=== PATIENT | female | born 1935 | race Caucasian/White ===

== ENCOUNTER 2016-12-31 00:52 | Observation (INO) | payer BC ==
[~2016-12-31] VITALS: Ht 165.1 cm; Wt 68.5 kg
[~2016-12-31 00:52] MED LIST: CLTP PO; DILT120T8 PO; METO25TA3 PO; mega red PO
[2016-12-31] MEDS ORDERED: KRIL1CAP18 PO (01:17)
[2016-12-31] MEDS ORDERED: CALCTAB7 PO (01:17)
[2016-12-31] MEDS ORDERED: LATA0.5S OPB (01:17)
[2016-12-31] MEDS ORDERED: MELA1TAB5 PO (01:17)
[2016-12-31] MEDS ORDERED: CHOL1000 PO (01:17)
[2016-12-31 01:39] LABS: BASO % 0.5 %; BASO ABS # 0.05 K/uL (0-0.2); COMPLETE YES; EOS % 3.9 %; HEMATOCRIT 46.2 % (37-47); IG% 0.3 %; LYMPH % 34.7 %; LYMPH ABS # 3.31 K/uL (1.2-3.4); MEAN CORPUSCULAR HEMOGLOBIN 30.1 pg (25-34); MEAN CORPUSCULAR HGB CONC 32.7 g/dl (32-36); MONO % 10.2 %; NEUT % 50.4 %; PLATELET COUNT 302 K/uL (130-400); RED BLOOD COUNT 5.02 M/uL (4.2-5.4); WHITE BLOOD COUNT 9.54 K/uL (4.8-10.8)
[2016-12-31 01:47] LABS: MANUAL MICROSCOPIC REQUIRED? NO; REVIEW REQ? NO; URINE APPEARANCE CLEAR (CLEAR); URINE BILIRUBIN NEG (NEG); URINE COLOR YELLOW; URINE NITRITE NEG (NEG); URINE SPECIFIC GRAVITY 1.014 (1.000-1.030); UROBILINOGEN NEG (NEG)
--- NOTE | 2016-12-31 01:49 | EMERGENCY ROOM VISIT NOTE ---
History Report prepared by [place]: Daria Villavicencio Under the Supervision of: Dr. Rani Tanner D.O. First contact with patient: 01:13 Chief Complaint: ABDOMINAL PAIN Stated Complaint: PAIN IN RT UPPER ABD AREA History of Present Illness The patient is an 81 year old female who presents to the Emergency Room with complaints of intermittent upper abdominal pain that began around 2200 this evening. The patient states that she has never experienced this in the past. She notes a history of an appendectomy and cholecystectomy. The patient states that initially her pain would come every 15 minutes, then every 30 minutes, and then every 45 minutes. She states that she thought that the pain was starting to subside, but then started coming every five minutes. The patient states that each episode lasts approximately 1-2 minutes. She denies any shortness of breath, nausea, or vomiting. The patient denies eating anything out of the ordinary this evening. Source of History: patient Onset: 2200 this evening Position: abdomen (upper) Timing: intermittent Associated Symptoms: No SOB, No nausea, No vomiting Review of Systems See HPI for pertinent positives & negatives. A total of 10 systems reviewed and were otherwise negative. Past Medical & Surgical Medical Problems: (1) Hypercholesterolemia (2) Hypertension (3) Palpitations Surgical Problems: (1) Hx of cholecystectomy (2) Tonsillectomy planned Family History Noncontributory secondary to age Social History Smoking Status: Never Smoker Alcohol Use: none Drug Use: none Marital Status: Housing Status: lives with family Occupation Status: retired Current/Historical Medications Scheduled Calcium Carbonate-Vitamin D W/ (Caltrate 600 Plus), 1 TAB PO BID Cholecalciferol (Vitamin D3), 1 TAB PO DAILY Diltiazem Hcl (Cardizem), 120 MG PO BID Krill Oil (Megared [place]-3 Krill Oil 500 mg), 1 CAP PO DAILY Latanoprost (Xalatan 0.005% Oph Anabela), 1 DROPS OPB HS Melatonin (Kp Melatonin), 3 MG PO HS Metoprolol Succ (Toprol Xl) (Toprol-Xl), 25 MG PO QPM Allergies Coded Allergies: Aspirin (Verified Allergy, Severe, HEART RACES, INCREASES B/P, 12/31/16) Meperidine (Verified Allergy, Severe, HEART RACES, INCREASES B/P, 12/31/16) Oxycodone (Verified Allergy, Severe, HEART RACES, INCREASES B/P, 12/31/16) Tramadol (Verified Allergy, Severe, HEART RACES, INCREASES B/P, 12/31/16) Cephalosporins (Verified Allergy, Unknown, SWELLING, 12/31/16) Codeine (Verified Allergy, Unknown, ITCHY, 12/31/16) Hydrocodone (Verified Allergy, Unknown, ITCHY, 12/31/16) Ibuprofen (Verified Allergy, Unknown, ITCHY, 12/31/16) Penicillins (Verified Allergy, Unknown, SWELLING, 12/31/16) Physical Exam Vital Signs Date Time Temp Pulse Resp B/P Pulse Ox O2 Delivery O2 Flow Rate FiO2 12/31/16 05:00 140/70 12/31/16 04:57 55 18 147/77 96 Room Air 12/31/16 04:48 147/77 12/31/16 04:40 56 13 97 12/31/16 04:35 54 13 99 12/31/16 04:30 53 16 130/89 95 12/31/16 04:10 52 18 97 12/31/16 04:00 53 16 136/66 91 12/31/16 03:30 55 18 138/69 92 12/31/16 03:27 58 18 141/71 95 Room Air 12/31/16 03:25 57 17 95 12/31/16 03:22 141/71 12/31/16 02:55 56 14 96 12/31/16 02:50 57 18 94 12/31/16 02:45 56 17 95 12/31/16 02:40 54 16 94 12/31/16 02:35 59 16 94 12/31/16 02:30 57 16 149/76 12/31/16 02:25 60 19 94 12/31/16 02:20 57 21 94 12/31/16 02:10 57 16 94 12/31/16 02:06 132/74 12/31/16 01:50 36.7 59 19 147/69 99 Room Air 12/31/16 01:40 147/69 12/31/16 01:40 59 12/31/16 01:18 159/72 Physical Exam HEENT: Head - normocephalic and atraumatic Pupils are equal, round, and reactive to light. Extraocular eye muscles are intact, and sclera are anicteric. Nose - moist nasal mucosa without discharge. Mouth - moist buccal mucosa. Oropharynx is nonerythematous and there is no tonsillar exudate or edema noted. Neck: Supple; no JVD, nuchal rigidity, cervical lymphadenopathy. Heart: Regular rate and rhythm. There is a normal S1 and S2 with no murmurs, clicks, or gallops appreciated. Lungs: Clear to auscultation bilaterally with no wheezes, rales, or rhonchi. Abdomen: Mild discomfort to palpation in the right upper quadrant. Soft, nondistended, with good bowel sounds. There are no palpable pulsatile masses or hepatosplenomegaly. There is no guarding, rigidity, or rebound noted. Extremities: No evidence of cyanosis, clubbing, or edema. There are easily palpable peripheral pulses. Skin: warm and dry with good turgor and no rashes. Medical Decision & Procedures ER Provider Diagnostic Interpretation: 1 view chest x-ray as per my interpretation: no obvious free air, moderate colonic fecal retention, no obvious signs of bowel obstruction. CT results as stated below per my review and radiologist interpretation: CT Abdomen and Pelvis: The visualized lower thorax is unremarkable. The gallbladder is surgically absent. Mild intra-and extrahepatic bile duct dilation likely segment prior to cholecystectomy. The liver, pancreas, and adrenal glands are unremarkable. Punctate calcifications within the spleen suggesting remote granulomatous infection. The kidneys, ureters and urinary bladder are unremarkable. The uterus and adnexa are unremarkable. The appendix is not identified. Noninflamed colonic diverticulosis. No free fluid. No free air. No acute osseous abnormality. Radiologist: Rafa Lewis MD Study ready at 0331 and initial results transmitted at 1943 Laboratory Results Test 12/31/16 01:10 12/31/16 01:15 12/31/16 04:24 Total Bilirubin 0.8 mg/dl (0.2-1) Direct Bilirubin mg/dl (0-0.2) Aspartate Amino Transf (AST/SGOT) 20 U/L (15-37) Alanine Aminotransferase (ALT/SGPT) 26 U/L (12-78) Alkaline Phosphatase 74 U/L (45-117) Total Protein 7.3 gm/dl (6.4-8.2) Albumin 4.0 gm/dl (3.4-5.0) Lipase 245 U/L (73-393) Chemistry Specimen Hemolysis Urine Color YELLOW Urine Appearance CLEAR (CLEAR) Urine pH 6.0 (4.5-7.5) Urine Specific [place] 1.014 (1.000-1.030) Urine Protein NEG (NEG) Urine Glucose (UA) NEG (NEG) Urine Ketones NEG (NEG) Urine Occult Blood NEG (NEG) Urine Nitrite NEG (NEG) Urine Bilirubin NEG (NEG) Urine Urobilinogen NEG (NEG) Urine Leukocyte Esterase SMALL (NEG) Urine WBC (Auto) 5-10 /hpf (0-5) Urine RBC (Auto) 0-4 /hpf (0-4) Urine Hyaline Casts (Auto) 1-5 /lpf (0-5) Urine Epithelial Cells (Auto) 10-20 /lpf (0-5) Urine Bacteria (Auto) NEG (NEG) Bedside Lactic Acid Venous 1.80 mmol/L (0.90-1.70) Laboratory results per my review. Medications Administered Medications (Trade) Dose Ordered Sig/Shad Route Start Time Stop Time Status Last Admin Dose Admin Fentanyl Citrate (Fentanyl Inj) 50 mcg NOW STAT IV 12/31/16 02:54 12/31/16 02:55 DC 12/31/16 03:02 50 MCG Fentanyl Citrate 50 mcg 50 mcg NOW STAT IV 12/31/16 04:13 12/31/16 04:14 DC 12/31/16 04:35 50 MCG Sodium Chloride (Nss 1000ml) 1,000 ml @ 250 mls/hr Q4H STAT IV 12/31/16 04:13 12/31/16 06:26 DC 12/31/16 04:35 250 MLS/HR Procedure The patient was treated with Fentanyl Inj 50 mcg IV, Sodium Chloride 1000 ml @ 250 mls/hr IV, Fentanyl Inj 50 mcg IV. ECG Indication: abdominal pain Rate (beats per minute): 59 Rhythm: sinus bradycardia Findings: 1st degree AV block, no acute ischemic change, no ectopy Comparison ECG Date: 04/30/12 Change: no significant change ED Course 0121: Past medical records reviewed. The patient was evaluated in room A12B. A complete history and physical exam was performed. An IV lock was initiated and labs are drones above. Patient had an obstruction series done as described above. 0252: I reevaluated the patient and she notes that the episodes are coming more frequently. I discussed the exam findings with her thus far. She agreed to have a CT scan. 0254: Ordered Fentanyl Inj 50 mcg IV. 0405: I reevaluated the patient and she is still having terrible pain. I discussed the CT findings with her and I discussed the treatment plan. She verbalized complete understanding and agreement. She will be evaluated for further treatment. 0413: Ordered Fentanyl Inj 50 mcg IV. 0433: I discussed the patient's case with JENNIFER Yip. He is going to evaluate the patient for further treatment. Medical Decision The patient is an 81 year old female who presents to the ED with abdominal pain. Differential diagnosis includes small bowel obstruction, retained common bile duct stone, pancreatitis, colitis, ulcerative disease, ischemic bowel, ulcerative disease. Lab interpretation: no leukocytosis, stable H&H, BUN 22, creatinine 1.2, glucose 110, normal LFTs and lipase, urinalysis small leukocyte esterase and 5- 10 white cells, lactic acid 1.8. This is an 81-year-old female patient who presents to the emergency department with sudden onset of right upper quadrant abdominal pain that will not subside. Plain films and CT scan were essentially unremarkable. Laboratory studies were unremarkable. The patient's symptoms persist despite multiple pain medications. I discussed the case with the [facility] hospitalist and they will evaluate for further management. We discussed the possibility of ulcerative disease and the need for endoscopy. GI will be consulted. Consults Time Called: [phone] Consulting Physician: JENNIFER Yip Returned Call: [phone] I discussed the patient's case with JENNIFER Yip. He is going to evaluate the patient for further treatment. Impression Primary Impression: Intractable abdominal pain Scribe Attestation The scribe's documentation has been prepared under my direction and personally reviewed by me in its entirety. I confirm that the note above accurately reflects all work, treatment, procedures, and medical decision making performed by me. Departure Information Dispostion Being Evaluated By Hospitalist Kostas Manzo M.D. (PCP)
[2016-12-31 02:44] LABS: ALKALINE PHOSPHATASE 74 U/L (45-117); ALT/SGPT 26 U/L (12-78); AST/SGOT 20 U/L (15-37); BLOOD UREA NITROGEN 22 mg/dl (7-18); BUN/CREATININE RATIO 18.1 (10-20); CALCIUM 9.5 mg/dl (8.5-10.1); CARBON DIOXIDE 27 mmol/L (21-32); CHLORIDE 107 mmol/L (98-107); GLUCOSE 110 mg/dl (70-99); POTASSIUM 4.1 mmol/L (3.5-5.1); SODIUM 143 mmol/L (136-145)
[2016-12-31] MEDS ORDERED: FENTANYL CITRATE INJ 50 MCG/1 ML 2 ML VIAL IV STA ×2 (02:54→04:13)
[2016-12-31] MEDS ORDERED: OPTIRAY 320 IV PRN (03:00)
[2016-12-31] MEDS ORDERED: SODIUM CHLORIDE 0.9% 1000ML 1,000 ML IV STA (04:13)
--- NOTE | 2016-12-31 05:12 | History and Physical ---
History & Physical Date & Time of Service: December 31, 2016 at 05:13 Chief Complaint: Pain In Rt Upper Abd Area Primary Care Physician: Kostas Sawyer M.D. History of Present Illness Source: patient, family The patient is an 81-year-old female who presents emergency department with complaint of intermittent right upper quadrant and epigastric area pain that began around 2200 hrs. this evening prior to arrival. She's never had this kind of pain before. The pain was initially present in decreasing intervals from every 15 to 30 to 45 minutes, then started to appear at shorter intervals which may be a short as 5 minutes. She is status post appendectomy and cholecystectomy. She has not had any nausea or vomiting, but she does have chronic diarrhea since her cholecystectomy. She has not had any different food or liquid intake over the past several days. Past Medical/Surgical History Medical Problems: (1) Hypercholesterolemia Status: Chronic (2) Hypertension Status: Chronic (3) Palpitations Status: Resolved Surgical Problems: (1) Hx of cholecystectomy Status: Resolved (2) Tonsillectomy planned Status: Resolved Family History Noncontributory secondary to age Social History Smoking Status: Never Smoker Smokeless Tobacco Use: No Alcohol Use: none Drug Use: none Marital Status: Housing status: lives with family Occupational Status: retired Immunizations History of Influenza Vaccine: N/A History of Tetanus Vaccine?: Unknown History of Pneumococcal: No History of Hepatitis B Vaccine: No Multi-Drug Resistant Organisms History of MDRO: No Allergies Coded Allergies: Aspirin (Verified Allergy, Severe, HEART RACES, INCREASES B/P, 12/31/16) Meperidine (Verified Allergy, Severe, HEART RACES, INCREASES B/P, 12/31/16) Oxycodone (Verified Allergy, Severe, HEART RACES, INCREASES B/P, 12/31/16) Tramadol (Verified Allergy, Severe, HEART RACES, INCREASES B/P, 12/31/16) Cephalosporins (Verified Allergy, Unknown, SWELLING, 12/31/16) Codeine (Verified Allergy, Unknown, ITCHY, 12/31/16) Hydrocodone (Verified Allergy, Unknown, ITCHY, 12/31/16) Ibuprofen (Verified Allergy, Unknown, ITCHY, 12/31/16) Penicillins (Verified Allergy, Unknown, SWELLING, 12/31/16) Home Medications Scheduled Calcium Carbonate-Vitamin D W/ (Caltrate 600 Plus), 1 TAB PO BID Cholecalciferol (Vitamin D3), 1 TAB PO DAILY Diltiazem Hcl (Cardizem), 120 MG PO BID Krill Oil (Megared [place]-3 Krill Oil 500 mg), 1 CAP PO DAILY Latanoprost (Xalatan 0.005% Oph Anabela), 1 DROPS OPB HS Melatonin (Kp Melatonin), 3 MG PO HS Metoprolol Succ (Toprol Xl) (Toprol-Xl), 25 MG PO QPM Review of Systems Constitutional: No chills, No fatigue, No fever, No problem reported, No sweats , No weakness, No weight loss Eyes: No diplopia, No discharge, No eye pain, No problem reported, No redness, No worsening of vision ENT: No dental problems, No hearing loss, No nasal symptoms, No problem reported, No sore throat, No tinnitus, No trouble swallowing, No unusual epistaxis Respiratory: No cough, No dyspnea at rest, No dyspnea on exertion, No hemoptysis, No problem reported, No shortness of breath, No sputum, No wheezing Cardiovascular: No PND, No chest pain, No claudication, No edema, No orthopnea , No palpitations, No problem reported Abdomen: + diarrhea (chronic), + pain, No GI bleeding, No constipation, No nausea, No vomiting Musculoskeletal: No calf pain, No joint pain, No muscle pain, No problem reported, No swelling Genitourinary - Female: No dysmenorrhea, No dysuria, No hematuria, No menorrhagia, No metrorrhagia, No , No problem reported, No rash, No urinary frequency, No urinary incontinence, No urinary retention, No urinary urgency, No vaginal bleeding, No vaginal discharge, No vaginal itching, No vulvodynia Neurologic: No balance problems, No memory loss, No numbness/tingling, No paralysis, No problem reported, No vertigo, No weakness Psychiatric: No anhedonism, No anxiety, No depression symptoms, No insomnia, No problem reported, No substance abuse Endocrine: No excessive thirst, No excessive urination, No fatigue, No problem reported Hematologic / Lymphatic: No abnormal bleeding/bruising, No clotting problems, No night sweats, No problem reported, No swollen lymph nodes Integumentary: No bleeding, No color change, No itch, No new/changing skin lesions, No problem reported, No rash Allergic / Immunologic: No environmental allergies, No food allergies, No frequent infections, No hives, No pet sensitivities, No poor healing, No problem reported, No prolonged convalescence, No seasonal allergies Physical Exam Vital Signs Date Time Temp Pulse Resp B/P Pulse Ox O2 Delivery O2 Flow Rate FiO2 12/31/16 04:57 55 18 147/77 96 Room Air 12/31/16 04:35 54 13 99 12/31/16 04:30 53 16 130/89 95 12/31/16 04:10 52 18 97 12/31/16 04:00 53 16 136/66 91 12/31/16 03:30 55 18 138/69 92 12/31/16 03:27 58 18 141/71 95 Room Air 12/31/16 03:25 57 17 95 12/31/16 03:22 141/71 12/31/16 02:55 56 14 96 12/31/16 02:50 57 18 94 12/31/16 02:45 56 17 95 12/31/16 02:40 54 16 94 12/31/16 02:35 59 16 94 12/31/16 02:30 57 16 149/76 12/31/16 02:25 60 19 94 12/31/16 02:20 57 21 94 12/31/16 02:10 57 16 94 12/31/16 02:06 132/74 12/31/16 01:50 36.7 59 19 147/69 99 Room Air 12/31/16 01:40 147/69 12/31/16 01:40 59 12/31/16 01:18 159/72 General Appearance: WD/WN, + moderate distress (when the pain arrives, otherwise is normal in between episodes.) Head: normocephalic, atraumatic Eyes: normal inspection, PERRL, EOMI, sclerae normal ENT: normal ENT inspection, hearing grossly normal, pharynx normal Neck: supple, no adenopathy, thyroid normal, no JVD, no carotid bruits, trachea midline Respiratory/Chest: chest non-tender, lungs clear, normal breath sounds, no respiratory distress, no accessory muscle use Cardiovascular: regular rate, rhythm, no edema, no gallop, no JVD, no murmur, normal peripheral pulses Abdomen/GI: normal bowel sounds, non tender, soft, no organomegaly, no pulsatile mass Back: normal inspection, no CVA tenderness, no muscle spasm, normal range of motion Extremities/Musculoskelatal: normal inspection, no calf tenderness, normal capillary refill, no pedal edema, normal range of motion, non-tender Neurologic/Psych: stunt double II-XII nml as tested, no motor/sensory deficits, alert, normal mood/affect, normal reflexes, oriented x 3 Skin: normal color, warm/dry, no rash Lymphatic: no adenopathy Diagnostics Laboratory Results Results Past 24 Hours Test 12/31/16 01:10 12/31/16 01:15 12/31/16 04:24 Range/Units White Blood Count 9.54 4.8-10.8 K/uL Red Blood Count 5.02 4.2-5.4 M/uL Hemoglobin 15.1 12.0-16.0 g/dL Hematocrit 46.2 37-47 % Mean Corpuscular Volume 92.0 80-100 fL Mean Corpuscular Hemoglobin 30.1 25-34 pg Mean Corpuscular Hemoglobin Concent 32.7 32-36 g/dl Platelet Count 302 130-400 K/uL Mean Platelet Volume 10.0 7.4-10.4 fL Neutrophils (%) (Auto) 50.4 % Lymphocytes (%) (Auto) 34.7 % Monocytes (%) (Auto) 10.2 % Eosinophils (%) (Auto) 3.9 % Basophils (%) (Auto) 0.5 % Neutrophils # (Auto) 4.81 1.4-6.5 K/uL Lymphocytes # (Auto) 3.31 1.2-3.4 K/uL Monocytes # (Auto) 0.97 0.11-0.59 K/uL Eosinophils # (Auto) 0.37 0-0.5 K/uL Basophils # (Auto) 0.05 0-0.2 K/uL RDW Standard Deviation 43.6 36.4-46.3 fL RDW Coefficient of Variation 13.1 11.5-14.5 % Immature Granulocyte % (Auto) 0.3 % Immature Granulocyte # (Auto) 0.03 0.00-0.02 K/uL Sodium Level 143 136-145 mmol/L Potassium Level 4.1 3.5-5.1 mmol/L Chloride Level 107 98-107 mmol/L Carbon Dioxide Level 27 21-32 mmol/L Anion Gap 9.0 3-11 mmol/L Blood Urea Nitrogen 22 7-18 mg/dl Creatinine 1.20 0.60-1.20 mg/dl Estimated GFR () 49.4 Estimated GFR (Non- 42.7 BUN/Creatinine Ratio 18.1 10-20 Random Glucose 110 70-99 mg/dl Calcium Level 9.5 8.5-10.1 mg/dl Total Bilirubin 0.8 0.2-1 mg/dl Direct Bilirubin 0-0.2 mg/dl Aspartate Amino Transf (AST/SGOT) 20 15-37 U/L Alanine Aminotransferase (ALT/SGPT) 26 12-78 U/L Alkaline Phosphatase 74 45-117 U/L Total Protein 7.3 6.4-8.2 gm/dl Albumin 4.0 3.4-5.0 gm/dl Lipase 245 73-393 U/L Chemistry Specimen Hemolysis Urine Color YELLOW Urine Appearance CLEAR CLEAR Urine pH 6.0 4.5-7.5 Urine Specific [place] 1.014 1.000-1.030 Urine Protein NEG NEG Urine Glucose (UA) NEG NEG Urine Ketones NEG NEG Urine Occult Blood NEG NEG Urine Nitrite NEG NEG Urine Bilirubin NEG NEG Urine Urobilinogen NEG NEG Urine Leukocyte Esterase SMALL NEG Urine WBC (Auto) 5-10 0-5 /hpf Urine RBC (Auto) 0-4 0-4 /hpf Urine Hyaline Casts (Auto) 1-5 0-5 /lpf Urine Epithelial Cells (Auto) 10-20 0-5 /lpf Urine Bacteria (Auto) NEG NEG Bedside Lactic Acid Venous 1.80 0.90-1.70 mmol/L Diagnostic Radiology CT of the abdomen and pelvis: The visualized lower thorax is unremarkable The gallbladder surgically absent. Mild intra-and extrahepatic bile duct dilation likely segment prior to cholecystectomy. The liver, pancreas, and adrenal glands are unremarkable. Punctate calcifications within the spleen suggesting remote granulomatous infection. The kidneys, ureters and urinary bladder unremarkable. The uterus and adnexa are unremarkable. The appendix is not identified. Noninflamed colonic diverticulosis. No free fluid. No free air. No acute osseous abnormality. Impression Assessment and Plan Intractable upper abdominal and epigastric pain--the patient will be admitted to the medical surgical floor nothing by mouth except sips of water and medications. Place on normal saline with KCl 20 mEq at 100 ML's per hour. Zofran 4 mg IV every 6 hours when necessary nausea, Protonix 40 mg IV daily, acetaminophen 650 mg IV every 6 hours when necessary, and dicyclomine 10 mg by mouth every 6 hours when necessary. She is status post appendectomy and status post cholecystectomy. She has had a colonoscopy within the past year which was normal. We'll consult gastroenterology for consideration of an EGD to assess for possible peptic ulcer disease, gastritis etc. Her laboratories are completely normal, which makes choledocholithiasis less likely. Hypertension/bradycardia--we'll hold Cardizem 120 mg by mouth twice a day and metoprolol succinate 25 mg by mouth every afternoon. We'll place on hydralazine 10 mg IV every 4 hours when necessary systolic blood pressure greater than 150. Glaucoma--continue Xalatan 0.005% some solution, 1 drop OPB at bedtime. Level of Care Med/Surg Advanced Directives Existing Advance Directive: No Existing Living Will: No Existing Power of Scraper Operator: No Resuscitation Status FULL RESUSCITATION VTE Prophylaxis VTE Risk Assessment Done? Y/N: Yes Risk Level: Moderate Given or contraindicated: SCD's Social Service Consult None Apply
[2016-12-31] MEDS ORDERED: ONDANSETRON INJ 2 MG/ML 2 ML VIAL IV PRN (05:15)
[2016-12-31] MEDS ORDERED: DICYCLOMINE HCL 10 MG CAP PO PRN (05:15)
[2016-12-31] MEDS ORDERED: DICYCLOMINE HCL 10 MG CAP PO STA (05:17)
[2016-12-31] MEDS ORDERED: PANTOprazole INJ 40 MG in SYRINGE 0 ML IV STA (05:17)
[2016-12-31] MEDS ORDERED: HydrALAZINE HCL 20 MG/ML VIAL IV. PRN (05:45)
[2016-12-31 06:15] VITALS: BP 163/73; PULSE 58; TEMP 36.8; O2SAT 99; Ht 165.1 cm; Wt 68.5 kg
[2016-12-31] MEDS ORDERED: PATIENT'S HEIGHT AND/OR WEIGHT NEEDED SCH (06:30)
[2016-12-31] MEDS ORDERED: IV FLUIDS COMPLETED PRN (06:30)
[2016-12-31] MEDS: NSS + 20MEQ KCL 1000ML 1,000 ML IV SCH ×2 (06:43→16:36)
--- NOTE | 2016-12-31 06:46 | DIAGNOSTIC IMAGING REPORT ---
ABDOMEN 2VIEW W/PA CHEST RTN CLINICAL HISTORY: Severe right upper quadrant abdominal pain COMPARISON STUDY: 07/24/2008 FINDINGS: The erect chest reveals no evidence of free air. There is no evidence of focal pulmonary consolidation.] Erect and supine views of the abdomen reveal no abnormally dilated loops of large or small bowel. There are no transition zone to indicate bowel obstruction. There are surgical clips within the right upper quadrant consistent with a prior cholecystectomy. IMPRESSION: No evidence of bowel obstruction. No evidence of free air. Electronically signed by: Drake Hahn M.D. 12/31/2016 6:45 AM Dictated Date/Time: 12/31/2016 6:44 AM
--- NOTE | 2016-12-31 06:54 | DIAGNOSTIC IMAGING REPORT ---
CT ABD/PELVIS IV CONTRAST ONLY CLINICAL HISTORY: Severe right upper quadrant abdominal pain COMPARISON STUDY: August 2011 TECHNIQUE: Following the IV administration of 90 mL of Optiray-320, CT scan of the abdomen and pelvis was performed from the lung bases to the proximal femurs. Images are reviewed in the axial, sagittal, and coronal planes. IV contrast was administered without complication. CT DOSE: 300.27 mGy.cm FINDINGS: Lower chest: There are mild dependent atelectatic changes. Liver: The contrast-enhanced liver is normal in size, contour, and attenuation. There is no intrahepatic biliary ductal dilatation. The hepatic veins and portal veins are patent. Gallbladder: Surgically absent Spleen: Normal in size and attenuation. Pancreas: Unremarkable. Adrenal glands: Unremarkable. Kidneys: There is symmetric renal cortical enhancement. The kidneys are normal in size without hydronephrosis. Bowel: There are no transition zones indicate bowel obstruction. By history the appendix is surgically absent. There is colonic diverticulosis. There are no acute peridiverticular inflammatory changes. Peritoneum: There is no intraperitoneal free air or abdominal ascites. Vasculature: The abdominal aorta is normal in course and caliber. Adenopathy: None. Pelvic viscera: The bladder, and pelvic viscera are unremarkable. Skeletal structures: No destructive osseous lesions are seen. IMPRESSION: 1. Surgically absent gallbladder and appendix 2. No acute intra-abdominal or pelvic findings 3. No evidence of bowel obstruction. No evidence of free air 4. Diverticulosis. No evidence of acute diverticulitis Electronically signed by: Drake Hahn M.D. 12/31/2016 6:53 AM Dictated Date/Time: 12/31/2016 6:47 AM
[2016-12-31] MEDS: ACETAMINOPHEN IV 100 ML IV PRN ×2 (07:49→19:56)
[2016-12-31 08:00] VITALS: O2SAT 99
[2016-12-31] MEDS ORDERED: MoRPHine SULFATE 2 MG/ML CARP IV PRN (09:45)
[2016-12-31] MEDS ORDERED: NURSING VERBAL MED ORDER ONE (09:45)
[2016-12-31] MEDS: PANTOprazole INJ 40 MG in SYRINGE 0 ML IV SCH (10:33)
[2016-12-31] MEDS ORDERED: HYOSCYAMINE SULFATE 0.125 MG SL TAB PO PRN (11:45)
[2016-12-31] MEDS ORDERED: MoRPHine SULFATE 4 MG/ML 1 ML CARP\\VIAL IV PRN (12:45)
--- NOTE | 2016-12-31 14:10 | Gastrointestinal Consultation ---
Gastrointestinal Consultation Date of Consultation: December 31, 2016 Attending Physician: Dr. Calvillo Consulting Physician: Dr. Jarrell Reason for Consultation: abdominal pain History of Present Illness Patient is a 81 year old female with HTN and a history of cholecystectomy and appendectomy who was admitted last evening after acute onset of worsening R middle and lower quadrant abdominal pain which was initially intermittent but then became more persistent. She was in her usual state of health until that time. No associated nausea or vomiting. Has 1-2 soft BM daily and htis has not changed. Some pain today but overall improving. No sick contacts. No deviation from her usual diet. She had a colonoscopy in the fall. Not on any NSAIDS. No history of ulcer disease. Past Medical/Surgical History Medical Problems: (1) Intractable abdominal pain Status: Acute Past Medical History: HTN hyperlipidemia Past Surgical History: appy; katerine Family History Noncontributory secondary to age non-contributory Social History Smoking Status: Never Smoker Alcohol Use: none Drug Use: none Marital Status: Housing Status: lives with family Occupation Status: retired Allergies Coded Allergies: Aspirin (Verified Allergy, Severe, HEART RACES, INCREASES B/P, 12/31/16) Meperidine (Verified Allergy, Severe, HEART RACES, INCREASES B/P, 12/31/16) Oxycodone (Verified Allergy, Severe, HEART RACES, INCREASES B/P, 12/31/16) Tramadol (Verified Allergy, Severe, HEART RACES, INCREASES B/P, 12/31/16) Cephalosporins (Verified Allergy, Unknown, SWELLING, 12/31/16) Codeine (Verified Allergy, Unknown, ITCHY, 12/31/16) Hydrocodone (Verified Allergy, Unknown, ITCHY, 12/31/16) Ibuprofen (Verified Allergy, Unknown, ITCHY, 12/31/16) Penicillins (Verified Allergy, Unknown, SWELLING, 12/31/16) Current Medications Home Meds and Scripts Medications Dose Route/Sig Max Daily Dose Days Date Category Megared Tony-3 Krill Oil 500 mg (Krill Oil) 1 Cap Cap 1 Cap PO DAILY 12/31/16 Reported Xalatan 0.005% Oph Anabela (Latanoprost) 0.005 % Anabela 1 Drops OPB HS 12/31/16 Reported Kp Melatonin (Melatonin) 3 Mg Tab 3 Mg PO HS 30 12/31/16 Reported Vitamin D3 (Cholecalciferol) 1,000 Unit Tab 1 Tab PO DAILY 90 12/31/16 Reported Caltrate 600 Plus (Calcium Carbonate-Vitamin D W/) 1 Tab Tab 1 Tab PO BID 12/31/16 Reported Cardizem (Diltiazem Hcl) 120 Mg Tab 120 Mg PO BID 08/08/13 Reported Toprol-Xl (Metoprolol Succinate) 25 Mg Tabcr 25 Mg PO QPM 01/23/09 Reported Review of Systems 12 systems reviewed and negative except as noted Physical Exam Date Time Temp Pulse Resp B/P Pulse Ox O2 Delivery O2 Flow Rate FiO2 12/31/16 08:00 99 Room Air 12/31/16 06:15 36.8 58 16 163/73 99 Room Air 12/31/16 05:40 54 14 92 12/31/16 05:30 147/69 12/31/16 05:20 54 12/31/16 05:10 54 17 95 12/31/16 05:00 140/70 12/31/16 04:57 55 18 147/77 96 Room Air 12/31/16 04:48 147/77 12/31/16 04:40 56 13 97 12/31/16 04:35 54 13 99 12/31/16 04:30 53 16 130/89 95 12/31/16 04:10 52 18 97 12/31/16 04:00 53 16 136/66 91 12/31/16 03:30 55 18 138/69 92 12/31/16 03:27 58 18 141/71 95 Room Air 12/31/16 03:25 57 17 95 12/31/16 03:22 141/71 12/31/16 02:55 56 14 96 12/31/16 02:50 57 18 94 12/31/16 02:45 56 17 95 12/31/16 02:40 54 16 94 12/31/16 02:35 59 16 94 12/31/16 02:30 57 16 149/76 12/31/16 02:25 60 19 94 12/31/16 02:20 57 21 94 12/31/16 02:10 57 16 94 12/31/16 02:06 132/74 12/31/16 01:50 36.7 59 19 147/69 99 Room Air 12/31/16 01:40 147/69 12/31/16 01:40 59 12/31/16 01:18 159/72 General Appearance: WD/WN, no apparent distress Eyes: normal inspection, PERRL ENT: normal ENT inspection, hearing grossly normal, pharynx normal Neck: supple, no adenopathy, no JVD Respiratory/Chest: chest non-tender, lungs clear, normal breath sounds, no accessory muscle use Cardiovascular: regular rate, rhythm, no murmur Abdomen: normal bowel sounds, + tenderness (mild tenderness in the RLQ) Extremities: normal range of motion, non-tender, no pedal edema 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, no motor/sensory deficits, alert, normal mood/affect, oriented x 3 Skin: normal color, no rash Laboratory Results Last 24 Hours Test 12/31/16 01:10 12/31/16 01:15 12/31/16 04:24 12/31/16 06:40 White Blood Count 9.54 K/uL Red Blood Count 5.02 M/uL Hemoglobin 15.1 g/dL Hematocrit 46.2 % Mean Corpuscular Volume 92.0 fL Mean Corpuscular Hemoglobin 30.1 pg Mean Corpuscular Hemoglobin Concent 32.7 g/dl Platelet Count 302 K/uL Mean Platelet Volume 10.0 fL Neutrophils (%) (Auto) 50.4 % Lymphocytes (%) (Auto) 34.7 % Monocytes (%) (Auto) 10.2 % Eosinophils (%) (Auto) 3.9 % Basophils (%) (Auto) 0.5 % Neutrophils # (Auto) 4.81 K/uL Lymphocytes # (Auto) 3.31 K/uL Monocytes # (Auto) 0.97 K/uL Eosinophils # (Auto) 0.37 K/uL Basophils # (Auto) 0.05 K/uL RDW Standard Deviation 43.6 fL RDW Coefficient of Variation 13.1 % Immature Granulocyte % (Auto) 0.3 % Immature Granulocyte # (Auto) 0.03 K/uL Sodium Level 143 mmol/L Potassium Level 4.1 mmol/L Chloride Level 107 mmol/L Carbon Dioxide Level 27 mmol/L Anion Gap 9.0 mmol/L Blood Urea Nitrogen 22 mg/dl Creatinine 1.20 mg/dl Estimated GFR () 49.4 Estimated GFR (Non- 42.7 BUN/Creatinine Ratio 18.1 Random Glucose 110 mg/dl Calcium Level 9.5 mg/dl Total Bilirubin 0.8 mg/dl Direct Bilirubin mg/dl Aspartate Amino Transf (AST/SGOT) 20 U/L Alanine Aminotransferase (ALT/SGPT) 26 U/L Alkaline Phosphatase 74 U/L Total Protein 7.3 gm/dl Albumin 4.0 gm/dl Lipase 245 U/L Chemistry Specimen Hemolysis Urine Color YELLOW Urine Appearance CLEAR Urine pH 6.0 Urine Specific [place] 1.014 Urine Protein NEG Urine Glucose (UA) NEG Urine Ketones NEG Urine Occult Blood NEG Urine Nitrite NEG Urine Bilirubin NEG Urine Urobilinogen NEG Urine Leukocyte Esterase SMALL Urine WBC (Auto) 5-10 /hpf Urine RBC (Auto) 0-4 /hpf Urine Hyaline Casts (Auto) 1-5 /lpf Urine Epithelial Cells (Auto) 10-20 /lpf Urine Bacteria (Auto) NEG Bedside Lactic Acid Venous 1.80 mmol/L Lactic Acid Level 1.2 mmol/L Impression Patient is a 81 year old female admitted with acute onset of right sided abdominal pain. No risk factors for PUD. LFTs normal. Symptoms may be related to a viral syndrome. Improving with conservative measures. Plan - Advance diet today to low fat and monitor symptoms. - Can consider EGD tomorrow if symptoms persist. - Continue conservative measures.
[2016-12-31 15:36] VITALS: BP 133/69; PULSE 66; TEMP 37; O2SAT 93
[2016-12-31 15:40] VITALS: O2SAT 99
[2016-12-31 15:42] VITALS: BP 133/69; PULSE 66; TEMP 37; O2SAT 93
[2016-12-31 20:00] VITALS: BP 155/71; PULSE 75
[2016-12-31] MEDS ORDERED: METOPROLOL SUCC 25MG EXT REL TAB PO SCH (21:00)
[2016-12-31] MEDS ORDERED: LATANOPROST 0.005% OP SOLN 2.5 ML BTL OPB SCH (21:00)
[2017-01-01] VITALS: O2SAT 99
[2017-01-01 00:05] VITALS: BP 138/75; PULSE 59; TEMP 36.8; O2SAT 94
[2017-01-01] MEDS: NSS + 20MEQ KCL 1000ML 1,000 ML IV SCH (02:23)
[2017-01-01 06:20] LABS: BASO % 0.8 %; BASO ABS # 0.04 K/uL (0-0.2); COMPLETE YES; EOS % 4.2 %; HEMATOCRIT 39.1 % (37-47); LYMPH % 43.7 %; MEAN CELL VOLUME 92.9 fL (80-100); MEAN CORPUSCULAR HEMOGLOBIN 30.4 pg (25-34); MEAN CORPUSCULAR HGB CONC 32.7 g/dl (32-36); MEAN PLATELET VOLUME 9.8 fL (7.4-10.4); MONO % 8.5 %; NEUT % 42.8 %; PLATELET COUNT 239 K/uL (130-400); RED BLOOD COUNT 4.21 M/uL (4.2-5.4); WHITE BLOOD COUNT 5.04 K/uL (4.8-10.8)
[2017-01-01 07:12] LABS: BUN/CREATININE RATIO 13.4 (10-20); CALCIUM 8.4 mg/dl (8.5-10.1); CREATININE 0.95 mg/dl (0.60-1.20); MAGNESIUM 2.2 mg/dl (1.8-2.4); POTASSIUM 4.1 mmol/L (3.5-5.1)
[2017-01-01 07:36] VITALS: BP 171/74; PULSE 61; TEMP 36.8; O2SAT 95
[2017-01-01] MEDS ORDERED: NURSING VERBAL MED ORDER ONE (10:15)
--- NOTE | 2017-01-01 10:27 | Gastroenterology Progress Note ---
Progress Note Date of Service: January 01, 2017 Subjective Pt evaluation today including: conversation w/ patient, conversation w/ family (daughter and at the bedside), physical exam, chart review, lab review, review of inpatient medication list Ms. Castro is an 81 yr old female admitted with RUQ/epigastric abdominal pain which began on Sunday, increasing through that day and Sunday. On arrival, imaging S/P distant cholecystectomy and w/o bile duct abnormalities. LFTs normal. CBC, CMP normal. today. Most recent narcotic medication early yesterday. Tylenol last night reviewed her discomfort and she slept well w/o any wakening pain. Was up to void w/o noticing any pain. Is pain free this morning and would like to avoid further testing. Review of Systems Constitutional: No fever Respiratory: No cough Cardiac: No chest pain Abdomen: + pain (resolved), No GI bleeding, No acolic stools, No constipation, No diarrhea, No dysphagia, No jaundice, No nausea, No odynophagia, No vomiting Musculoskeletal: No joint pain Female : No dysuria Neuro: No memory loss Psych: No depression symptoms Heme: No abnormal bleeding/bruising Endo: No fatigue Skin: No rash Medications Current Inpatient Medications Medications (Trade) Dose Ordered Sig/Shad Route Start Time Stop Time Status Last Admin Dose Admin Ioversol (Optiray 320) 100 ml UD PRN IV 12/31/16 03:00 01/04/17 02:59 Ondansetron HCl 4 mg 4 mg Q6H PRN IV 12/31/16 05:15 01/30/17 05:14 Acetaminophen 100 ml @ 400 mls/hr Q8H PRN IV 12/31/16 05:15 01/30/17 05:14 12/31/16 19:56 400 MLS/HR Pantoprazole Sodium/Syringe (Protonix Inj/ Syringe) 10 ml @ 5 mls/min DAILY@11 IV 12/31/16 11:00 01/30/17 10:59 12/31/16 10:33 5 MLS/MIN Latanoprost (Xalatan Oph Soln) 1 drops HS OPB 12/31/16 21:00 01/30/17 20:59 12/31/16 19:56 1 DROPS Metoprolol Succinate (Toprol Xl Tab) 25 mg QPM PO 12/31/16 21:00 01/30/17 20:59 12/31/16 19:56 25 MG Dicyclomine HCl (Bentyl Cap) 10 mg QID PRN PO 12/31/16 05:15 01/30/17 05:14 Hydralazine HCl (HydrALAZINE INJ) 10 mg Q4H PRN IV. 12/31/16 05:45 01/30/17 05:44 Miscellaneous (Iv Fluids Completed) 1 ea PRN PRN N/A 12/31/16 06:30 12/31/17 06:29 Morphine Sulfate (MoRPHine SULFATE INJ) 3 mg Q3H PRN IV 12/31/16 12:45 01/14/17 12:44 Hyoscyamine Sulfate (Levsin Tab) 0.125 mg Q4H PRN PO 12/31/16 11:45 01/30/17 11:44 Objective Vital Signs Date Time Temp Pulse Resp B/P Pulse Ox O2 Delivery O2 Flow Rate FiO2 01/01/17 07:36 36.8 61 18 171/74 95 Room Air 01/01/17 00:05 36.8 59 16 138/75 94 Room Air 01/01/17 00:00 99 Room Air 12/31/16 20:00 75 155/71 12/31/16 15:42 37.0 66 16 133/69 93 12/31/16 15:40 99 Room Air 12/31/16 15:36 37.0 66 16 133/69 93 Physical Exam General Appearance: no apparent distress ENT: pharynx normal Neck: supple, thyroid normal, no JVD Respiratory/Chest: lungs clear Cardiovascular: regular rate, rhythm, no JVD, no murmur Abdomen: non tender, soft Extremities: non-tender Neurologic/Psych: alert, normal mood/affect, oriented x 3 Skin: normal color, no jaundice Laboratory Results Last 24 Hours Test 01/01/17 05:48 White Blood Count 5.04 K/uL Red Blood Count 4.21 M/uL Hemoglobin 12.8 g/dL Hematocrit 39.1 % Mean Corpuscular Volume 92.9 fL Mean Corpuscular Hemoglobin 30.4 pg Mean Corpuscular Hemoglobin Concent 32.7 g/dl Platelet Count 239 K/uL Mean Platelet Volume 9.8 fL Neutrophils (%) (Auto) 42.8 % Lymphocytes (%) (Auto) 43.7 % Monocytes (%) (Auto) 8.5 % Eosinophils (%) (Auto) 4.2 % Basophils (%) (Auto) 0.8 % Neutrophils # (Auto) 2.16 K/uL Lymphocytes # (Auto) 2.20 K/uL Monocytes # (Auto) 0.43 K/uL Eosinophils # (Auto) 0.21 K/uL Basophils # (Auto) 0.04 K/uL RDW Standard Deviation 44.6 fL RDW Coefficient of Variation 13.1 % Immature Granulocyte % (Auto) 0.0 % Immature Granulocyte # (Auto) 0.00 K/uL Sodium Level 143 mmol/L Potassium Level 4.1 mmol/L Chloride Level 113 mmol/L Carbon Dioxide Level 23 mmol/L Anion Gap 7.0 mmol/L Blood Urea Nitrogen 13 mg/dl Creatinine 0.95 mg/dl Est Creatinine Clear Calc Drug Dose 45.9 ml/min Estimated GFR () 65.6 Estimated GFR (Non- 56.6 BUN/Creatinine Ratio 13.4 Random Glucose 82 mg/dl Calcium Level 8.4 mg/dl Magnesium Level 2.2 mg/dl Assessment and Plan Ms. Castro is an 81 yr old female admitted with RUQ/epigastric pain that has since resolved. No clear reason for the pain on imaging or labs. This may represent mild gastritis, mild duodenitis or a viral illness. Plan: 1. Recommend liquid diet for breakfast and if no pain or nausea then regular diet for lunch. If does well with that could be discharged later today. 2. No need for OP GI f/u or testing, unless pain recurs. Pt was given a phone number to call to schedule with Dr. Jarrell if pain recurs or if questions. \ I saw and evaluated the patient. We did offer her an upper endoscopy however the patient declined. Given her symptoms I wonder if she may have up recurrent gallstone given her prior cholecystectomy over 10 years ago. Should her symptoms return would suggest further evaluation with MRCP or perhaps endoscopic ultrasound and upper endoscopy. Please call with any questions or concerns
[2017-01-01] MEDS ORDERED: OPTIRAY 320 IV PRN (11:30)
[2017-01-01] MEDS ORDERED: PANT40TA PO (11:34)
--- NOTE | 2017-01-01 11:39 | Discharge Instructions ---
Discharge Instructions Date of Service January 01, 2017. Admission Reason for Admission: Intractable Abdominal Pain Discharge Discharge Diagnosis / Problem: abdominal pain Discharge Goals Goal(s): Diagnostic testing Activity Recommendations Activity Limitations: resume your previous activity . Instructions / Follow-Up Instructions / Follow-Up You were admitted to the hospital with complaints of abdominal pain. Pain has resolved. There were no abnormalities noted in your liver functions or pancreatic functions. A CAT scan did not show any significant abnormalities of the bowel. It does show some constipation that could be contributing to your pain. The CT angiogram showed a small aneurysm in your aorta. Your primary care will watch this in the future. It is recommended that you have an ultrasound yearly to follow the aneurysm to make sure its not increasing in size. No treatment is needed at this time. Please follow-up with your oracle database developer as scheduled Please also follow up with your primary care physician within one week It is recommended that you try to monitor your blood pressure at home. The following changes/additions have been made to your medication list: -Begin pantoprazole 40 mg daily for 2 weeks -Please start taking Miralax (over the counter) 1 dose daily for constipation. You may hold it if you have diarrhea. Call your doctor or return to the emergency department if you have any of the following symptoms: -Fever of 101F or greater -Returning abdominal pain -Persistent vomiting - Persistent diarrhea -Lethargy -Chest pain -Shortness of breath -severe dizziness -weakness on one side of your body Current Hospital Diet Patient's current hospital diet: Full Liquid Diet Discharge Diet Recommended Diet: AHA Diet (Heart Healthy) Procedures Procedures Performed: CT angiogram 1. No evidence of celiac, superior mesenteric, or renal artery stenosis. Inferior mesenteric artery is patent 2. 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 Surgically absent gallbladder and appendix 2. No acute intra-abdominal or pelvic findings 3. No evidence of bowel obstruction. No evidence of free air 4. Diverticulosis. No evidence of acute diverticulitis Pending Studies Studies pending at discharge: no Medical Emergencies . Who to Call and When: Medical Emergencies: If at any time you feel your situation is an emergency, please call 911 immediately. . Non-Emergent Contact Non-Emergency issues call your: Primary Care Provider . . "Provider Documentation" section prepared by Mary Etienne. Attending Attestation: Pt seen and care plan d/w SHERON Etienne on day of discharge. I agree w/ her discharge instructions as outlined. Fortino Rene MD . VTE Core Measure Inpt VTE Proph given/why not?: SCD's
--- NOTE | 2017-01-01 11:51 | Discharge Summary ---
Discharge Summary Date of Service January 01, 2017. (Mary Etienne PA-C) Discharge Summary Admission Date: December 31, 2016 at 05:04 Discharge Date: January 01, 2017 Discharge Disposition: Home Principal Diagnosis: abdominal pain Problems/Secondary Diagnoses: Hypertension Glaucoma Immunizations: Have You Had Influenza Vaccine: N/A History of Tetanus Vaccine?: Unknown History of Pneumococcal: No History of Hepatitis B Vaccine: No Procedures: CT abdomen and pelvis did not show any acute abnormalities. Please see report for details. CT angiogram of the abdomen and pelvis also did not show any significant abnormalities Consultations: Gastroenterology (Mary Etienne PA-C) Medication Reconciliation New Medications: Pantoprazole (Protonix) 40 Mg Tab 40 MG PO DAILY for 14 Days, #14 TAB Continued Medications: Calcium Carbonate-Vitamin D W/ (Caltrate 600 Plus) 1 Tab Tab 1 TAB PO BID, TAB Cholecalciferol (Vitamin D3) 1,000 Unit Tab 1 TAB PO DAILY for 90 Days, #90 TAB 3 Refills Diltiazem Hcl (Cardizem) 120 Mg Tab 120 MG PO BID Krill Oil (Megared [place]-3 Krill Oil 500 mg) 1 Cap Cap 1 CAP PO DAILY Latanoprost (Xalatan 0.005% Oph Anabela) 0.005 % Anabela 1 DROPS OPB HS, #2.5 ML 3 Refills Melatonin (Kp Melatonin) 3 Mg Tab 3 MG PO HS for 30 Days, #30 TAB Metoprolol Succ (Toprol Xl) (Toprol-Xl) 25 Mg Tabcr 25 MG PO QPM Referrals At Discharge Follow up Referrals: Senior Payroll Manager Referral - Within 2 Weeks with Shaun Higginbotham M.D. Physician Referral - Within 1 Week with Kostas Sawyer M.D. Discharge Exam Patient reports being hungry. The pain dissipated on its own last evening around 8 PM. She has been pain free all night. Denies nausea. No bowel movements. Denies any other symptoms such as chest pain or pressure. Denies shortness of breath. Review of Systems: Constitutional: No fever Respiratory: No cough, No shortness of breath Cardiovascular: No chest pain Abdomen: No nausea, No pain Neurologic: No weakness Physical Exam: General Appearance: no apparent distress Eyes: EOMI Neck: no JVD Respiratory/Chest: lungs clear Cardiovascular: regular rate, rhythm Abdomen / GI: normal bowel sounds, non tender, soft Extremities: no calf tenderness, no pedal edema Neurologic/Psychiatric: no motor/sensory deficits, oriented x 3 Skin: warm/dry (Mary Etienne PA-C) Hospital Course 81-year-old female admitted to the hospital with complaints of epigastric and right upper quadrant abdominal pain -CT of the abdomen and pelvis in the emergency department was unremarkable -No significant abnormalities noted in the labs. Normal LFTs. -Patient was admitted to medical floor -She was hydrated with IV fluids -She was put on a Protonix drip, IV Tylenol, Zofran prn -Initially patient was NPO -GI was consulted. Patient was started on a diet, which she tolerated. She ate dinner last evening. -recommendations were for the patient to be NPO after midnight and possibly considering EGD if the pain persists. Since the patient complains of no pain this morning, conservative measures were felt to be appropriate. -A CT angiogram of the abdomen and pelvis was performed to rule out mesenteric ischemia. This was negative. -The patient was discharged home with pantoprazole 40 mg daily for 2 weeks. She is instructed to follow-up with her typical elderly caregiver, Dr. Higginbotham in 2 weeks. Hypertension/bradycardia-BP slightly high this morning. -The patient's Cardizem 120 mg po BID was held during her hospital stay due to bradycardia. As the patient is asymptomatic, we will resume her typical dosing upon discharge -The patient's Toprol XL 25 mg daily was continued -She was covered with prn hydralazine while in-house Glaucoma--continue Xalatan 0.005% some solution, 1 drop OPB at bedtime. Total Time Spent: Greater than 30 minutes This includes examination of the patient, discharge planning, medication reconciliation, and communication with other providers. (Mary Etienne PA-C) Attending Discharge Note & Attestation: Pt seen/examined, chart reviewed, care plan d/w SHERON Etienne on day of discharge. I agree w/ the solorio components of her discharge summary. 81yo female who presented with acute abdominal pain. Extensive work-up including CT abd/pelvis and CTA abd/pelvis were both normal. KUB x-ray did demonstrate copious stool, however. Her pain resolved without any specific intervention. All GI labs including lipase, LFTs were normal. U/a was normal. The exact etiology of her symptoms was unclear at time of discharge. Possibilities include colic from severe constipation vs viral process vs spasm vs gastritis/GERD vs other. She will need close follow-up with GI after discharge. Bowel regimen was recommended at time of discharge as well. Discharge exam: gen - nad heart - RRR lungs - CTA b/l abd - soft, NT, ND, BS+, no HSM, no peritoneal signs ext - no edema Fortino Rene MD (Fortino Rene MD) Discharge Instructions Please refer to the electronic Patient Visit Report (Discharge Instructions) for additional information. (Mary Etienne PA-C) Follow-Up PCP 1 week GI 2 weeks (Mary Etienne PA-C) Additional Copies To Kostas Sawyer M.D.; Shaun Higginbotham M.D.
[2017-01-01] MEDS: PANTOprazole INJ 40 MG in SYRINGE 0 ML IV SCH (11:55)
--- NOTE | 2017-01-01 12:54 | DIAGNOSTIC IMAGING REPORT ---
CT ANGIO ABDOMEN WITH CONTRAST CT DOSE: 251.88 mGy.cm CLINICAL HISTORY: Upper abdominal pain. Possible mesenteric ischemia. TECHNIQUE: The patient was scanned in a dynamic helical fashion during intravenous administration of 119 cc Optiray 320. MIP imaging was performed. COMPARISON STUDY: CT scan dated 12/31/2016 FINDINGS: The lung bases are unremarkable in appearance. There is a 16 mm hypervascular focus within the right hepatic lobe inferiorly. There is no corresponding mass identified on the portal phase study performed one day prior. This likely represents a perfusional variant. The gallbladder surgically absent. No splenic masses are visualized. No pancreatic masses are visualized. No adrenal masses are visualized. There are no solid renal masses identified on this arterial phase study. There are moderate diffuse atheromatous changes present within the abdominal aorta. 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 There is no evidence of superior mesenteric or inferior mesenteric artery stenosis. Inferior mesenteric artery is patent. The left gastric artery arises independently from the aorta. There are 2 left renal arteries and a single right renal artery. There is no evidence of renal artery stenosis. IMPRESSION: 1. No evidence of celiac, superior mesenteric, or renal artery stenosis. Inferior mesenteric artery is patent 2. 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 01/01/2017 12:52 PM Dictated Date/Time: 01/01/2017 12:45 PM
[2017-01-01 15:27] VITALS: BP 171/74; PULSE 61; TEMP 36.8; O2SAT 95
== END 2017-01-01 16:00 | disposition home or self-care (01) ==
LOC: ENRESERVTM → ENRESERVDT → C.EDB 00:53 → C.MS2W 05:04 → INTOOBSV 05:04
PROVIDERS: ADMIT Hospitalist; ATTEND Internal Medicine
DX: R10.11 Right upper quadrant pain (principal); R10.13 Epigastric pain; E78.00 Pure hypercholesterolemia, unspecified; I10 Essential (primary) hypertension; H40.9 Unspecified glaucoma; Z90.49 Acquired absence of other specified parts of digestive tract; Z90.89 Acquired absence of other organs

== ENCOUNTER → 2017-03-22 | Outpatient (CLI) | payer BC ==
[~2017-03-22] MED LIST changes: +CALCTAB7 PO; +CHOL1000 PO; -CLTP PO; +KRIL1CAP18 PO; +LATA0.5S OPB; +MELA1TAB5 PO; -mega red PO
[2017-03-22 10:44] LABS: BASO % 0.3 %; BASO ABS # 0.02 K/uL (0-0.2); COMPLETE YES; HEMATOCRIT 44.6 % (37-47); IG% 0.3 %; LYMPH % 29.6 %; LYMPH ABS # 1.79 K/uL (1.2-3.4); MEAN CELL VOLUME 90.3 fL (80-100); MEAN CORPUSCULAR HEMOGLOBIN 30.2 pg (25-34); MEAN CORPUSCULAR HGB CONC 33.4 g/dl (32-36); MEAN PLATELET VOLUME 10.3 fL (7.4-10.4); MONO % 11.8 %; PLATELET COUNT 281 K/uL (130-400); RED BLOOD COUNT 4.94 M/uL (4.2-5.4); WHITE BLOOD COUNT 6.04 K/uL (4.8-10.8)
[2017-03-22 12:53] LABS: BLOOD UREA NITROGEN 17 mg/dl (7-18); BUN/CREATININE RATIO 15.9 (10-20); CALCIUM 9.5 mg/dl (8.5-10.1); CARBON DIOXIDE 28 mmol/L (21-32); CHLORIDE 108 mmol/L (98-107); GLUCOSE 94 mg/dl (70-99); POTASSIUM 4.1 mmol/L (3.5-5.1); SODIUM 140 mmol/L (136-145)
[2017-03-22 13:04] LABS: CHOLESTEROL 248 mg/dl (0-200); CHOLESTEROL/HDL RATIO 5.3; HDL CHOLESTEROL 47 mg/dl; LDL CHOLESTEROL CALCULATED 154 mg/dl; TRIGLYCERIDES 236 mg/dl (0-150); VERY LOW DENSITY LIPOPROT CALC 47 mg/dl
== END | disposition home or self-care (01) ==
LOC: C.LAB 09:17
PROVIDERS: ATTEND Internal Medicine Geriatric Medicine
DX: I10 Essential (primary) hypertension (principal); M85.80 Other specified disorders of bone density and structure, unspecified site; E78.5 Hyperlipidemia, unspecified; E55.9 Vitamin D deficiency, unspecified; R10.9 Unspecified abdominal pain

== ENCOUNTER → 2017-06-07 | Outpatient (CLI) | payer BC ==
--- NOTE | 2017-06-07 15:39 | DIAGNOSTIC IMAGING REPORT ---
CHEST 2 VIEWS ROUTINE CLINICAL HISTORY: Right-sided pain COMPARISON STUDY: 12/31/2016 FINDINGS: The cardiac and mediastinal contours are normal. There is no evidence of focal pulmonary consolidation. There is no evidence of failure. No pleural effusions are visualized.[An opacity at the level the right cardiophrenic angle likely represents a fat pad. There is no pneumothorax. IMPRESSION: No active disease in the chest. Electronically signed by: Drake Hahn M.D. 06/07/2017 3:38 PM Dictated Date/Time: 06/07/2017 3:37 PM
--- NOTE | 2017-06-07 15:45 | DIAGNOSTIC IMAGING REPORT ---
R RIBS UNILATERAL MIN 2 VIEWS CLINICAL HISTORY: 81 years-old Female presenting with Rib painright. TECHNIQUE: Frontal and oblique views of the right ribs were obtained. COMPARISON: Chest x-ray from 12/31/2016. FINDINGS: Contour deformities of the right lateral fifth and sixth ribs. There is vague suggestion of a contour deformity on prior chest x-ray in retrospect from , however, this is not well visualized on prior exam. No additional rib deformity to suggest acute fracture. Atherosclerosis of aortic arch. Degenerative changes of the spine. Cholecystectomy clips noted. Visualized portions of the lungs and pleural spaces clear. IMPRESSION: Fracture deformities of the right lateral fifth and sixth ribs, which may be acute or chronic. Correlate for point tenderness. Electronically signed by: Gus Hernandez M.D. 06/07/2017 3:43 PM Dictated Date/Time: 06/07/2017 3:40 PM
== END | disposition home or self-care (01) ==
LOC: C.LABBC 15:11
PROVIDERS: ATTEND Internal Medicine Geriatric Medicine
DX: R07.81 Pleurodynia (principal)

== ENCOUNTER → 2017-06-12 | Outpatient (CLI) | payer BC ==
[2017-06-12 12:37] LABS: BLOOD UREA NITROGEN 21 mg/dl (7-18); CREATININE 1.09 mg/dl (0.60-1.20)
== END | disposition home or self-care (01) ==
LOC: C.LAB 10:34
PROVIDERS: ATTEND Internal Medicine Geriatric Medicine
DX: Z00.00 Encounter for general adult medical examination without abnormal findings (principal)

== ENCOUNTER → 2017-06-14 | Outpatient (CLI) | payer BC ==
[~2017-06-14] MED LIST changes: +OPTIRAY 320 IV PRN
--- NOTE | 2017-06-14 12:55 | DIAGNOSTIC IMAGING REPORT ---
CT ANGIO ABD/PELVIS WITH CONTRAST CT DOSE: 490.80 mGy.cm CLINICAL HISTORY: Abdominal pain. Possible mesenteric ischemia. TECHNIQUE: The patient was scanned in a dynamic helical fashion during intravenous administration 1 through 19 cc of Optiray 320. MIP imaging was performed. A dose lowering technique was utilized adhering to the principles of ALARA. COMPARISON STUDY: 01/01/2017 FINDINGS: Visualized portions lung bases reveal minor dependent atelectatic change. No hepatic masses are visualized this arterial phase study. The gallbladder surgically absent. No splenic masses are visualized. No pancreatic masses are visualized. No adrenal masses are visualized. No solid renal masses are visualized this arterial phase study. There are no transition zone to indicate bowel obstruction. There are no acute inflammatory changes. There is no free air. There is no ascites. There is no pathologic adenopathy. There is no evidence of celiac, superior mesenteric, or renal artery stenosis. There are 2 left renal arteries. The right gastric artery has a separate origin from the aorta. The inferior mesenteric artery is patent. There are moderate atheromatous changes present within the abdominal aorta. 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 There is no evidence of iliac artery stenosis. IMPRESSION: 1. No evidence of celiac, superior mesenteric, or renal artery stenosis. The inferior mesenteric artery is patent 2. 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 06/14/2017 12:54 PM Dictated Date/Time: 06/14/2017 12:49 PM
== END | disposition home or self-care (01) ==
LOC: C.CTS 12:14
PROVIDERS: ATTEND Internal Medicine Geriatric Medicine
DX: I71.4 Abdominal aortic aneurysm, without rupture (principal)

== ENCOUNTER → 2017-06-14 | Outpatient (CLI) | payer BC ==
[~2017-06-14] MED LIST changes: -OPTIRAY 320 IV PRN
== END | disposition home or self-care (01) ==
LOC: C.MAMM 10:45
PROVIDERS: ATTEND Internal Medicine Geriatric Medicine
DX: S22.39XA Fracture of one rib, unspecified side, initial encounter for closed fracture (principal); X58.XXXA Exposure to other specified factors, initial encounter; M85.88 Other specified disorders of bone density and structure, other site

== ENCOUNTER → 2017-07-26 | Outpatient (CLI) | payer BC ==
--- NOTE | 2017-07-26 14:35 | MAMMOGRAPHY REPORT ---
BILATERAL DIGITAL SCREENING MAMMOGRAM WITH CAD: 07/26/2017 CLINICAL HISTORY: Routine screening. TECHNIQUE: Current study was also evaluated with a Computer Aided Detection (CAD) system. Bilateral CC and MLO views were obtained. COMPARISON: Comparison is made to exams dated: 07/25/2016 mammogram, 07/21/2015 mammogram, 4 mammogram, 07/14/2013 mammogram, 07/10/2012 mammogram, and 06/29/2011 mammogram - [facility]. BREAST COMPOSITION: There are scattered areas of fibroglandular density in both breasts. FINDINGS: No suspicious masses, calcifications, or areas of architectural distortion are noted in ei ther breast. There has been no significant interval change compared to prior exams. Scattered bilater al benign-appearing calcifications are not significantly changed. Nodular asymmetry in the left late ral anterior breast is stable compared to prior exams. A linear scar marker denotes a scar on the le ft anterior breast. IMPRESSION: ACR BI-RADS CATEGORY 2: BENIGN There is no mammographic evidence of malignancy. A 1 year screening mammogram is recommended. The pa tient will receive written notification of the results. Approximately 10% of breast cancers are not detected with mammography. A negative mammographic report should not delay biopsy if a clinically suggestive mass is present. Lucero Lee M.D. /:07/26/2017 11:41:02 Rubber Stamp Die Inspector: Estephanie COTO(R)(M), [facility] letter sent: Normal 1/2 BI-RADS Code: ACR BI-RADS Category 2: Benign
== END | disposition home or self-care (01) ==
LOC: C.MAMM 10:25
PROVIDERS: ATTEND Internal Medicine Geriatric Medicine
DX: Z12.31 Encounter for screening mammogram for malignant neoplasm of breast (principal)

== ENCOUNTER → 2017-09-20 | Outpatient (CLI) | payer BC ==
--- NOTE | 2017-09-20 08:54 | DIAGNOSTIC IMAGING REPORT ---
RIGHT SECOND FINGER 3 VIEWS HISTORY: Right index finger pain. COMPARISON: None. FINDINGS: There is no fracture or dislocation. Mild soft tissue swelling. No erosions identified. 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 No radiopaque foreign bodies. IMPRESSION: Mild soft tissue swelling within the right index finger. No fractures. Electronically signed by: Isaiah Ng M.D. 09/20/2017 8:53 AM Dictated Date/Time: 09/20/2017 8:52 AM
== END | disposition home or self-care (01) ==
LOC: C.RADBC 08:30
PROVIDERS: ATTEND Internal Medicine Geriatric Medicine
DX: M79.644 Pain in right finger(s) (principal)

== ENCOUNTER → 2017-12-28 | Outpatient (CLI) | payer BC | END | disposition home or self-care (01) | LOC: C.LAB 12:02 | PROVIDERS: ATTEND Internal Medicine Geriatric Medicine | DX: Z00.00 Encounter for general adult medical examination without abnormal findings (principal) ==

== ENCOUNTER → 2018-03-14 | Outpatient (CLI) | payer BC ==
[~2018-03-14] MED LIST changes: -CALCTAB7 PO; -CHOL1000 PO; +DILT-213 PO; +DILT120C68 PO; -DILT120T8 PO; +DRGTP12 TD; -KRIL1CAP18 PO; -LATA0.5S OPB; +LRS10 PO; -MELA1TAB5 PO; -METO25TA3 PO; +OPTIRAY 320 IV PRN; +VLTG EXT
--- NOTE | 2018-03-14 14:53 | DIAGNOSTIC IMAGING REPORT ---
ABD/PELVIS IV AND ORAL CONT CT DOSE: 304.76 mGy.cm HISTORY: Pain I71.4 Abdominal aortic [id number] Low back [id number] TECHNIQUE: Multiaxial CT images of the abdomen and pelvis were performed following the use of intravenous and oral contrast. A dose lowering technique was utilized adhering to the principles of ALARA. COMPARISON STUDY: 06/14/2017 FINDINGS: Lung bases are clear. Liver spleen and pancreas are uniform. There are several right and to a lesser extent left renal parapelvic cyst. There is no evidence for hydronephrosis. There is mild aneurysmal dilatation of the infrarenal aspect abdominal aorta is unchanged. Bowel pattern is considered nonobstructive. Bladder is midline. There is no free fluid within the pelvic cul-de-sac.. Be a component of mild chronic colonic diverticulosis at the level of the sigmoid. IMPRESSION: 1. Mild sigmoid diverticulosis. 2. No evidence of diverticulitis. 3. Mild infrarenal abdominal aortic aneurysm unchanged from the prior study at 12 mm. The above report was generated using voice recognition software. It may contain grammatical, syntax or spelling errors. Electronically signed by: Willam Vargas M.D. 03/14/2018 1:37 PM Dictated Date/Time: 03/14/2018 1:33 PM
--- NOTE | 2018-03-14 14:54 | DIAGNOSTIC IMAGING REPORT ---
RIGHT HIP CT CT DOSE: HISTORY: M25.551 Hip pain, [id number] TECHNIQUE: Multiaxial CT images of the right hip were performed and reformatted in the sagittal and coronal plane without the use of contrast. A dose lowering technique was utilized adhering to the principles of ALARA. COMPARISON: None. FINDINGS: Mild cartilage space narrowing and small marginal osteophytes within the right hip consistent with mild osteoarthritis. No fracture or dislocation within the right hip. The visualized pelvic bones are intact. Soft tissues are within normal limits. Patchy sclerosis within the superior femoral head is likely due to the degenerative change. IMPRESSION: 1. Mild osteoarthritis within the right hip. 2. No fracture or dislocation within the right hip. 3. Patchy sclerosis within the superior femoral head is likely due to the degenerative change. However, if the patient complains of progressively worsening right hip pain then consider nonemergent MRI follow-up to exclude the less likely possibility of developing avascular necrosis. Electronically signed by: Isaiah Ng M.D. 03/14/2018 1:39 PM Dictated Date/Time: 03/14/2018 1:34 PM
== END | disposition home or self-care (01) ==
LOC: C.CTS 12:23
PROVIDERS: ATTEND Internal Medicine Geriatric Medicine
DX: M54.5 Low back pain (principal); I71.4 Abdominal aortic aneurysm, without rupture; K57.90 Diverticulosis of intestine, part unspecified, without perforation or abscess without bleeding; M16.11 Unilateral primary osteoarthritis, right hip

== ENCOUNTER 2019-04-18 15:25 | Inpatient (IN) ==
[2019-04-18 16:44] LABS: Basophils # (auto) 0.03 K/uL (0-0.2); Basophils % (auto) 0.5 %; Eosinophils # (auto) 0.13 K/uL (0-0.5); Hematocrit (blood only) 38.3 % (37-47); Hemoglobin 13.2 g/dL (12.0-16.0); Immature Granulocytes # (auto) 0.02 K/uL (0.00-0.02); Immature Granulocytes % (auto) 0.3 %; Lymphocytes # (auto) 2.05 K/uL (1.2-3.4); Lymphocytes % (auto) 32.2 %; Mean Corpuscular Hemoglobin 30.8 pg (25-34); Mean Corpuscular Hgb Conc 34.5 g/dL (32-36); Mean Corpuscular Volume 89.3 fL (80-100); Mean Platelet Volume 9.1 fL (7.4-10.4); Monocytes # (auto) 0.92 K/uL (0.11-0.59); Monocytes % (auto) 14.5 %; Neutrophils # (auto) 3.21 K/uL (1.4-6.5); Neutrophils % (auto) 50.5 %; Platelet Count 274 K/uL (130-400); RDW Coefficient of Variation 13.6 % (11.5-14.5); RDW Standard Deviation 44.6 fL (36.4-46.3); Red Blood Count 4.29 M/uL (4.2-5.4); White Blood Count 6.36 K/uL (4.8-10.8)
[2019-04-18 16:53] LABS: Partial Thromboplastin Time 25.9 Seconds (21.0-31.0)
[2019-04-18 17:02] LABS: Alanine Aminotransferase 25 U/L (12-78); Albumin Level 3.4 gm/dl (3.4-5.0); Aspartate Aminotransferase 17 U/L (15-37); BUN Creatinine Ratio 13.9 (10-20); Blood Urea Nitrogen 18 mg/dl (7-18); Calcium 9.2 mg/dl (8.5-10.1); Carbon Dioxide 27 mmol/L (21-32); Chloride 104 mmol/L (98-107); Creatinine Clr Calc Pharmacy 33.5 ml/min; Est GFR (African American) 44.2; Est GFR (Non-African American) 38.2; Glucose 122 mg/dl (70-99); Lipase 101 U/L (73-393); Magnesium 2.2 mg/dl (1.8-2.4); Sodium 138 mmol/L (136-145)
--- NOTE | 2019-04-18 17:07 | XRay Report ---
XR chest 1V portable CLINICAL HISTORY: Chest Pain COMPARISON STUDY: Chest radiograph April 10, 2019. FINDINGS: There is no pneumothorax. Cardiomegaly is noted. There is no overt pulmonary edema. A small left pleural effusion has developed. There is no right pleural effusion. There is no consolidation. Note is made of minimally displaced fractures of the posterior right fourth and fifth ribs. IMPRESSION: 1. Small left pleural effusion. No pneumothorax. 2. Minimally displaced posterior right fourth and fifth rib fractures which are likely subacute. Electronically signed by: Jose Roberto Royal M.D. 04/18/2019 5:06 PM
[2019-04-18 17:08] LABS: Albumin Globulin Ratio 1.1 (0.9-2); Alkaline Phosphatase 115 U/L (45-117); Bilirubin,Total 0.6 mg/dl (0.2-1); NT Pro B Type Natriuretic Pept 708 pg/ml (0-1800); Total Protein 6.4 gm/dl (6.4-8.2); Troponin I < 0.015 ng/ml (0-0.045)
--- NOTE | 2019-04-18 17:26 | Emergency Department Note ---
Entered by Steve Cristina acting as a scribe for Rich Matthews MD History of Present Illness General Chief complaint: Chest Pain Stated complaint: SOB Time Seen by Provider: 04/18/19 16:00 Source: patient Limitations: no limitations History of Present Illness Onset (ago): day(s) (yesterday) Location: chest Pain Consistency: + intermittent Maximum Pain Intensity: 0 Quality: + other (chest pressure) Exacerbated By: + movement Associated symptoms: + chest pain and + other (weight gain, swollen ankles and feet); no cough and no fever/chills The patient is a 83 year old female who presents to the Emergency Room with complaints of intermittent SOB starting yesterday. The patient states last night she could not lay on her back because she could not catch her breath. She notes the SOB is worse with movement. The patient states her ankles and feet are swollen. She notes she went to her PCP today at 1500 and was told to come to the ED. The patient's daughter states the patient gained 7 pounds in the past week. She states she has a little chest pressure on her left side of her chest. The patient denies having SOB before, having CHF before, having a fever, coughing, having heart problems, and having changes in her diet. The patient notes she was in the ED last after she fell two weeks ago. She states she was put on Flexeril, Toradol, and a fentanyl patch last . The patient states she had a blood clot many years ago. She states she does not take any blood thinners. She states she tried Lasix before but states it did not help. Home Medications Home Medications Medication Instructions Recorded Confirmed Type calcium carbonate-vitamin D3 1 tab PO QAM 05/24/18 04/18/19 History [Caltrate 600 + D] cholecalciferol (vitamin D3) 1,000 unit PO QAM 05/24/18 04/18/19 History [Vitamin D3] latanoprost [Xalatan] 1 drp OPB 05/24/18 04/18/19 History melatonin 3 mg PO 05/24/18 04/18/19 History metoprolol succinate [Toprol XL] 25 mg PO 05/24/18 04/18/19 History vit C 250 mg-E 200 unit-zinc 40 1 tab PO TID 03/18/19 04/18/19 History mg-copper 1 [id number] capsule diltiazem HCl 120 mg PO QAM 04/05/19 04/18/19 History diltiazem HCl 240 mg PO HS 04/05/19 04/18/19 History acetaminophen [Tylenol Extra 500 mg PO Q6H PRN 04/10/19 04/18/19 History Strength] cyclobenzaprine 10 mg PO TID PRN #20 tab 04/10/19 04/18/19 Rx ketorolac 10 mg PO Q6H PRN #20 tab 04/10/19 04/18/19 Rx fentanyl 25 mcg/hr transdermal 1 patch TD Q72H #2 ea 04/11/19 04/18/19 Rx patch ondansetron HCl 4 mg tablet 4 mg PO TID PRN 5 Days #20 tab 04/15/19 04/18/19 Rx Allergies Allergy/AdvReac Type Severity Reaction Status Date / Time aspirin Allergy Severe HEART Verified 04/18/19 14:59 RACES, INCREASES B/P meperidine Allergy Severe HEART Verified 04/18/19 14:59 RACES, INCREASES B/P oxycodone Allergy Severe HEART Verified 04/18/19 14:59 RACES, INCREASES B/P tramadol Allergy Severe HEART Verified 04/18/19 14:59 RACES, INCREASES B/P acetaminophen [From Vicodin] Allergy Unknown Unknown Verified 04/18/19 14:59 cephalexin [From Keflex] Allergy Unknown Unknown Verified 04/18/19 14:59 Cephalosporins Allergy Unknown SWELLING Verified 04/18/19 14:59 codeine Allergy Unknown ITCHY Verified 04/18/19 14:59 hydrocodone Allergy Unknown ITCHY Verified 04/18/19 14:59 ibuprofen Allergy Unknown ITCHY Verified 04/18/19 14:59 morphine Allergy Unknown Unknown Verified 04/18/19 14:59 Penicillins Allergy Unknown SWELLING Verified 04/18/19 14:59 Ambien TABS Allergy Unknown Unknown Uncoded 04/18/19 14:59 baclofen Allergy Unknown Unknown Uncoded 04/18/19 14:59 Ketorolac Tromethamine TABS Allergy Unknown Unknown Uncoded 04/18/19 14:59 Lipitor TABS Allergy Unknown Unknown Uncoded 04/18/19 14:59 Pravachol TABS Allergy Unknown Unknown Uncoded 04/18/19 14:59 Past Med/Surg History Medical History History of polymyalgia rheumatica (Resolved) Vitamin D deficiency (Chronic) Palpitations (Acute) Osteopenia (Acute) Low back pain (Acute) Insomnia (Acute) Hip pain, right (Acute) Glaucoma (Acute) Gastroesophageal reflux disease (Acute) Dyslipidemia (Acute) Bilateral sensorineural hearing loss (Acute) Abdominal aortic aneurysm (Chronic) Hypertension (Chronic) Hypercholesterolemia (Chronic) Surgical History S/P abdominal hysterectomy S/P appendectomy S/P colonoscopy S/P tonsillectomy and adenoidectomy Family History Mother Hypertension Stroke Other specified hearing loss, bilateral Father Other specified hearing loss, bilateral Cancer Cardiac disorder Social History Preferred Language: Yakut Communication Ability: Effective Visual Impairment: No Limitations Hearing Ability: Normal Project Management Manager Required: No Beliefs That Will Affect Care: None marital status: Current Living Situation: Spouse current occupational status: retired Feels Safe at Home: Yes Safety Concerns: Feels Safe At This Time Smoking Status: Never smoker Hx Alcohol Use: Yes Alcohol type: wine Hx Substance Use: No Childhood Exposure to Second-Hand Smoke: No Review of Systems See HPI for pertinent positives & negatives. and A total of 10 systems reviewed and were otherwise negative Physical Exam Vital Signs Vital Signs - 24 hr 04/18/19 15:38 04/18/19 16:32 04/18/19 16:37 Temperature 36.7 C Temperature Source Oral Sepsis Recent Fever Within 48 Hours No Sepsis Action Taken by Nursing No Action Required Pulse Rate 77 71 70 Pulse Rate from SpO2 Sensor 70 70 Pulse Rhythm Regular Pulse Strength Normal Respiratory Rate 16 16 18 Respiratory Effort / Characteristics Non-Labored Respiratory Depth Normal Respiratory Pattern Regular Blood Pressure 152/78 H 154/71 H Blood Pressure Mean 102 98 Blood Pressure Position Sitting Pulse Oximetry 97 92 93 Oxygen Delivery Method Room Air 04/18/19 17:00 04/18/19 17:30 04/18/19 18:00 Temperature Temperature Source Sepsis Recent Fever Within 48 Hours Sepsis Action Taken by Nursing Pulse Rate 72 72 73 Pulse Rate from SpO2 Sensor 71 74 73 Pulse Rhythm Pulse Strength Respiratory Rate 19 16 16 Respiratory Effort / Characteristics Respiratory Depth Respiratory Pattern Blood Pressure 165/76 H 171/74 H Blood Pressure Mean 105 106 Blood Pressure Position Pulse Oximetry 93 94 92 Oxygen Delivery Method GENERAL: Patient is in no acute distress. HEENT: No acute trauma, normocephalic atraumatic, mucous membranes moist, no nasal congestion, no scleral icterus. NECK: No stridor, no adenopathy, no meningismus, trachea is midline. LUNGS: Crackles at both bases especially at the left. No wheezes. No respiratory distress. HEART: Without murmurs gallops or rubs, regular rate and rhythm. ABDOMEN: Soft, nontender, bowel sounds positive, no hernias, no peritonitis. EXTREMITIES: No cyanosis. Full range of motion of all the joints without pain or difficulty, no signs for acute trauma. Moderate bilateral pedal edema. NEUROLOGIC: Oriented x 3, no acute motor or sensory deficits, no focal weakness. SKIN: No rash, no jaundice, no diaphoresis. Course 161: The patient was evaluated in room C12A, and a complete history and physical examination were performed. 1717: I reevaluated the patient. I updated the patient on her labs and imaging. 1812: I discussed the patient's [facility] will evaluate the patient for further management. 8: I reevaluated the patient. I updated the patient on her admission. She agrees with the plan. Administered Medications Diltiazem HCl (Cardizem Cd) 240 mg PO HS DELONTE Stop: 05/18/19 21:09 Last Admin: 04/18/19 22:16 Dose: 240 mg Documented by: [id number] Enoxaparin Sodium (Lovenox) 30 mg SQ Q24H DELONTE Stop: 05/18/19 21:59 Last Admin: 04/18/19 22:18 Dose: 30 mg Documented by: [id number] Ketorolac Tromethamine (Toradol) 10 mg PO Q6H PRN PRN Reason: pain Stop: 04/23/19 21:09 Last Admin: 04/18/19 22:50 Dose: 10 mg Documented by: [id number] Latanoprost (Xalatan Oph) 1 drops OPB HS DELONTE Stop: 05/18/19 21:09 Last Admin: 04/18/19 22:17 Dose: 1 drops Documented by: [id number] Metoprolol Succinate (Toprol Xl) 25 mg PO HS DELONTE Stop: 05/18/19 21:09 Last Admin: 04/18/19 22:17 Dose: 25 mg Documented by: [id number] Multivitamins/Minerals (Multivitamin W/ Minerals Tab) 1 tab PO DAILY DELONTE Stop: 05/18/19 21:09 Last Admin: 04/18/19 22:17 Dose: 1 tab Documented by: [id number] Discontinued Medications Bumetanide 1 mg/ Syringe 4 mls @ 4 mls/min IV NOW STA Stop: 04/18/19 18:12 Last Admin: 04/18/19 18:26 Dose: 4 mls/min Documented by: [id number] Ioversol (Optiray 320 125ml) 91 ml IV ONCE PRN PRN Reason: Interaction Checking Stop: 04/22/19 17:37 Last Admin: 04/18/19 17:39 Dose: 91 ml Documented by: [id number] Medical Decision Making Differential Diagnosis Differential Diagnosis: CHF, pneumonia, pneumothorax, PR, electrolyte imbalance, renal failure, DVT, and PE. Medical Records Attestation: I reviewed the patient's medical records. Home Medications Current Medication List: was personally reviewed by me Laboratory Data Attestation: I reviewed the patient's lab results. Result diagrams: 04/18/19 16:30 04/18/19 16:30 Lab Results 04/18/19 04/18/19 04/18/19 Range/Units 16:30 16:30 16:30 WBC 6.36 (4.8-10.8) K/uL RBC 4.29 (4.2-5.4) M/uL Hgb 13.2 (12.0-16.0) g/dL Hct 38.3 (37-47) % MCV 89.3 (80-100) fL MCH 30.8 (25-34) pg MCHC 34.5 (32-36) g/dL RDW Std Deviation 44.6 (36.4-46.3) fL RDW Coeff of Geraldine 13.6 (11.5-14.5) % Plt Count 274 (130-400) K/uL MPV 9.1 (7.4-10.4) fL Immature Gran % (Auto) 0.3 % Neut % (Auto) 50.5 % Lymph % (Auto) 32.2 % [place] % (Auto) 14.5 % Eos % (Auto) 2.0 % Baso % (Auto) 0.5 % Immature Gran # (Auto) 0.02 (0.00-0.02) K/uL Neut # (Auto) 3.21 (1.4-6.5) K/uL Lymph # (Auto) 2.05 (1.2-3.4) K/uL [place] # (Auto) 0.92 H (0.11-0.59) K/uL Eos # (Auto) 0.13 (0-0.5) K/uL Baso # (Auto) 0.03 (0-0.2) K/uL PT 10.0 (9.0-12.0) Seconds INR 1.0 (0.9-1.1) APTT 25.9 (21.0-31.0) Seconds PTT Ratio 1.0 Sodium 138 (136-145) mmol/L Potassium 4.0 (3.5-5.1) mmol/L Chloride 104 (98-107) mmol/L Carbon Dioxide 27 (21-32) mmol/L Anion Gap 7.0 (3-11) BUN 18 (7-18) mg/dl Creatinine 1.30 H (0.6-1.2) mg/dl Est Cr Clr Drug Dosing 33.5 ml/min Est GFR ( Amer) 44.2 Est GFR (Non-Af Amer) 38.2 BUN/Creatinine Ratio 13.9 (10-20) Glucose 122 H (70-99) mg/dl Calcium 9.2 (8.5-10.1) mg/dl Magnesium 2.2 (1.8-2.4) mg/dl Total Bilirubin 0.6 (0.2-1) mg/dl AST 17 (15-37) U/L ALT 25 (12-78) U/L Alkaline Phosphatase 115 (45-117) U/L Troponin I < 0.015 (0-0.045) ng/ml NT-Pro-B Natriuret Pep 708 (0-1800) pg/ml Total Protein 6.4 (6.4-8.2) gm/dl Albumin 3.4 (3.4-5.0) gm/dl Globulin 3.0 (2.5-4.0) gm/dl Albumin/Globulin Ratio 1.1 (0.9-2) Lipase 101 (73-393) U/L Imaging Data Radiologist's Impression: Radiology results as stated below per my review and the radiologist's interpretation: XR chest 1V portable CLINICAL HISTORY: Chest Pain COMPARISON STUDY: Chest radiograph April 10, 2019. FINDINGS: There is no pneumothorax. Cardiomegaly is noted. There is no overt pulmonary edema. A small left pleural effusion has developed. There is no right pleural effusion. There is no consolidation. Note is made of minimally displaced fractures of the posterior right fourth and fifth ribs. IMPRESSION: 1. Small left pleural effusion. No pneumothorax. 2. Minimally displaced posterior right fourth and fifth rib fractures which are likely subacute. Electronically signed by: Jose Roberto Royal M.D. 04/18/2019 5:[address] angio chest PE protocol CT DOSE: 291.09 mGy.cm HISTORY: 83 years-old Female with PE. Acute shortness of breath TECHNIQUE: Multiple CTA images of the chest were obtained after the intravenous administration of 91 ml Optiray 320. Coronal and sagittal MIPS were obtained from the axial data set and were submitted for review. All measurements were obtained according to NASCET criteria. A dose lowering technique was utilized adhering to the principles of ALARA. COMPARISON: Chest radiograph of same day FINDINGS: CTA: Heart is mildly enlarged. No pericardial effusion. Coronary arterial calcifications are noted. No thoracic aortic aneurysm or dissection. Patency of the imaged great vessels. Pulmonary arterial tree is opacified to the level the subsegmental branches and demonstrates no focal filling defects to suggest pulmonary thromboembolic disease. Reflux of contrast into the IVC. CT CHEST: Heterogeneous thyroid. Mildly prominent periesophageal and subcarinal lymph nodes may be physiologic. No pathologic adenopathy by CT size criteria. Calcified left hilar lymph nodes suggest prior granulomatous disease. Trace right and small left pleural effusions. No pneumothorax. Mild dependent bibasilar consolidation suggestive of atelectasis. Calcified granuloma of the superior segment left lower lobe. Pleural-based 3 mm solid nodule of the left upper lobe, image 214 series 4. Central airways appear patent. Cholecystectomy. No acute process of the imaged upper abdomen. Soft tissues are within normal limits. Mildly displaced acute or subacute appearing fractures are noted about the posterior right fourth and fifth ribs with suggestion of additional acute or subacute nondisplaced fractures of the posterior right sixth, seventh and ninth ribs. No acute vertebral body fracture. IMPRESSION: 1. No evidence of pulmonary thromboembolic disease. 2. Acute or subacute appearing mildly displaced fractures of the posterior right fourth and fifth ribs with nondisplaced fractures of the posterior right sixth, seventh and ninth ribs. No pneumothorax. 3. Trace right and small left pleural effusions with minimal bibasilar opacities suggestive of atelectasis. 4. Cholecystectomy. The above report was generated using voice recognition software. It may contain grammatical, syntax or spelling errors. Electronically signed by: Timothy Andrews M.D. 04/18/2019 5:53 PM ECG Data Attestation: I personally reviewed and interpreted this ECG as follows: Indication: chest pain and SOB/dyspnea Rate (beats per minute): 75 Rhythm: sinus rhythm Findings: no PVC and no ST elevation Blood Pressure Blood Pressure Findings: Elevated blood pressure Blood Pressure Disposition: further management by hospitalist JERRICA Narrative There is no leukocytosis or concerning anemia. No coagulopathy. No significant electrolyte abnormality or kidney failure. No liver enzyme elevation. EKG shows a sinus rhythm, no acute ischemia. Cardiac enzyme testing x1 is not consistent with acute cardiac injury. BNP is not elevated. Lipase is normal. Chest film shows a left pleural effusion, this is a new finding. There was no pneumonia. Chest CT does not show PE, there were at least 5 rib fractures on the right, there was no pneumothorax. A left pleural effusion was seen. The patient presents with shortness of breath especially when lying flat or with exertion. She has had some chest pressure as well. She has pedal edema and has gained several pounds in just a few days. She fell over a week ago and by our work-up, has at least 5 rib fractures on the right. The patient received IV Bumex, she was given 1 mg I think the patient deserves a hospital stay. She has 5 rib fractures on the right, she has a left pleural effusion, she has pedal edema and is fluid overloaded. There are several reasons why she feels dyspneic and short of breath. I spoke to the patient and case management. The on-call hospitalist was consulted. Impression & Plan Multiple fractures of ribs of right side, Fall, SOB (shortness of breath), Pleural effusion, Pedal edema Discharge Plan Visit Data *Final* Discharge Date/Time: 04/18/19 19:30 Chief Complaint: Chest Pain Stated Complaint: SOB ED Provider: Rich Matthews Discharge Problem: Multiple fractures of ribs of right side, Fall, SOB (shortness of breath), Pleural effusion, Pedal edema Patient Disposition: Admitted As Inpatient Discharge Instructions Interventions: ED Discharge Assessment Last Done: 04/18/19 19:30 Discharge Problem: Multiple fractures of ribs of right side Qualifiers: Encounter type: initial encounter Fracture type: closed Qualified Code(s): S22.41XA - Multiple fractures of ribs, right side, initial encounter for closed fracture Fall Qualifiers: Encounter type: initial encounter Qualified Code(s): W19.XXXA - Unspecified fall, initial encounter The scribe's documentation has been prepared under my direction and personally reviewed by me in its entirety. I confirm that the note above accurately reflects all work, treatment, procedures, and medical decision making performed by me.
[2019-04-18] MEDS ORDERED: OPTIRAY 320 125ml IV PRN (17:38)
--- NOTE | 2019-04-18 17:54 | CT Scan Report ---
CT angio chest PE protocol CT DOSE: 291.09 mGy.cm HISTORY: 83 years-old Female with PE. Acute shortness of breath TECHNIQUE: Multiple CTA images of the chest were obtained after the intravenous administration of 91 ml Optiray 320. Coronal and sagittal MIPS were obtained from the axial data set and were submitted f or review. All measurements were obtained according to NASCET criteria. A dose lowering technique wa s utilized adhering to the principles of ALARA. COMPARISON: Chest radiograph of same day FINDINGS: CTA: Heart is mildly enlarged. No pericardial effusion. Coronary arterial calcifications are noted. No tho racic aortic aneurysm or dissection. Patency of the imaged great vessels. Pulmonary arterial tree is opacified to the level the subsegmental branches and demonstrates no focal filling defects to suggest pulmonary thromboembolic disease. Reflux of contrast into the IVC. CT CHEST: Heterogeneous thyroid. Mildly prominent periesophageal and subcarinal lymph nodes may be physiologic. No pathologic adenopathy by CT size criteria. Calcified left hilar lymph nodes suggest prior granulo matous disease. Trace right and small left pleural effusions. No pneumothorax. Mild dependent bibasil ar consolidation suggestive of atelectasis. Calcified granuloma of the superior segment left lower lo be. Pleural-based 3 mm solid nodule of the left upper lobe, image 214 series 4. Central airways appea r patent. Cholecystectomy. No acute process of the imaged upper abdomen. Soft tissues are within normal limits. Mildly displaced acute or subacute appearing fractures are noted about the posterior right fourth an d fifth ribs with suggestion of additional acute or subacute nondisplaced fractures of the posterior right sixth, seventh and ninth ribs. No acute vertebral body fracture. IMPRESSION: 1. No evidence of pulmonary thromboembolic disease. 2. Acute or subacute appearing mildly displaced fractures of the posterior right fourth and fifth rib s with nondisplaced fractures of the posterior right sixth, seventh and ninth ribs. No pneumothorax. 3. Trace right and small left pleural effusions with minimal bibasilar opacities suggestive of atelec tasis. 4. Cholecystectomy. The above report was generated using voice recognition software. It may contain grammatical, syntax o r spelling errors. Electronically signed by: Timothy Andrews M.D. 04/18/2019 5:53 PM
[2019-04-18] MEDS ORDERED: BUMETANIDE 1 MG in SYRINGE 0 ML IV STA (18:11)
--- NOTE | 2019-04-18 19:09 | History & Physical Report ---
Date of Service April 18, 2019 Assessment & Plan (1) SOB (shortness of breath): Patient with 2 days of shortness of breath accompanied by weight gain, edema, orthopnea. No respiratory distress or oxygen requirements. BNP and troponin are unremarkable. Liver labs are unremarkable. Mildly increased creatinine of 1.3 from 1.05. -Observation to medical floor with telemetry -Patient was given 1 mg of Bumex while in the ER. She is presently not on any diuretic agents -Monitor strict I's and O's, daily weights, renal function -2D echocardiogram -Check UA to assess for proteinuria -Check TSH Present on Admission?: Yes (2) Pedal edema: Plan as above Present on Admission?: Yes (3) Pleural effusion: No respiratory distress -Plan as above -Patient may need additional dose of diuretic Present on Admission?: Yes (4) Rib fracture: Status post mechanical fall resulting in multiple rib fractures on the right side. Pain currently well controlled with current regimen -Fentanyl patch to be decreased to 12.5 mg -Continue Flexeril as needed -Continue Toradol as needed -Incentive spirometry q. hourly while awake Present on Admission?: Yes (5) Hypertension: Blood pressure elevated on arrival -Continue Toprol at home dose -Continue diltiazem Present on Admission?: Yes (6) Glaucoma: Continue Xalatan F/E/N-Bumex given as above, will monitor diuretic response. Monitor electrolytes and replete as needed. Monitor renal function closely. Heart healthy diet as tolerated Prophylaxis-Lovenox Code-full Disposition-medical floor with telemetry unit, observation History of Present Illness Chief Complaint: Shortness of breath Primary Care Provider: Karen Tobar PA-C Osiris Castro is a pleasant 83-year-old female with history of polymyalgia rheumatica, GERD, hypertension, AAA presenting with dyspnea. Patient had a mechanical fall 2 weeks ago which resulted in multiple left rib fractures. She was seen in outpatient clinic and was started on Flexeril, Toradol, fentanyl patch. Patient reports that her pain is fairly well controlled with this regimen. She presents today with 2 days of dyspnea on exertion, weight gain, edema and orthopnea. Patient reports that she becomes quite short of breath with ambulating short distances of approximately 30 feet. She reports a 6 pound unintentional weight gain in the last 4 to 5 days, no change in diet or medications. She also reports bilateral lower extremity edema and orthopnea over the last 3 to 4 days. She denies chest pain or palpitations but states that she occasionally has brief episodes of intermittent chest discomfort that occur at rest and last approximately 15 seconds. No additional complaints at this time ER course: Bumex x1 mg IV Allergies Allergy/AdvReac Type Severity Reaction Status Date / Time aspirin Allergy Severe HEART Verified 04/18/19 14:59 RACES, INCREASES B/P meperidine Allergy Severe HEART Verified 04/18/19 14:59 RACES, INCREASES B/P oxycodone Allergy Severe HEART Verified 04/18/19 14:59 RACES, INCREASES B/P tramadol Allergy Severe HEART Verified 04/18/19 14:59 RACES, INCREASES B/P acetaminophen [From Vicodin] Allergy Unknown Unknown Verified 04/18/19 14:59 cephalexin [From Keflex] Allergy Unknown Unknown Verified 04/18/19 14:59 Cephalosporins Allergy Unknown SWELLING Verified 04/18/19 14:59 codeine Allergy Unknown ITCHY Verified 04/18/19 14:59 hydrocodone Allergy Unknown ITCHY Verified 04/18/19 14:59 ibuprofen Allergy Unknown ITCHY Verified 04/18/19 14:59 morphine Allergy Unknown Unknown Verified 04/18/19 14:59 Penicillins Allergy Unknown SWELLING Verified 04/18/19 14:59 Ambien TABS Allergy Unknown Unknown Uncoded 04/18/19 14:59 baclofen Allergy Unknown Unknown Uncoded 04/18/19 14:59 Ketorolac Tromethamine TABS Allergy Unknown Unknown Uncoded 04/18/19 14:59 Lipitor TABS Allergy Unknown Unknown Uncoded 04/18/19 14:59 Pravachol TABS Allergy Unknown Unknown Uncoded 04/18/19 14:59 Home Medications Home Medications Medication Instructions Recorded Confirmed Type calcium carbonate-vitamin D3 1 tab PO QAM 05/24/18 04/18/19 History [Caltrate 600 + D] cholecalciferol (vitamin D3) 1,000 unit PO [facility] 05/24/18 04/18/19 History [Vitamin D3] latanoprost [Xalatan] 1 drp OPB 05/24/18 04/18/19 History melatonin 3 mg PO 05/24/18 04/18/19 History metoprolol succinate [Toprol XL] 25 mg PO 05/24/18 04/18/19 History vit C 250 mg-E 200 unit-zinc 40 1 tab PO TID 03/18/19 04/18/19 History mg-copper 1 [id number] capsule diltiazem HCl 120 mg PO QAM 04/05/19 04/18/19 History diltiazem HCl 240 mg PO HS 04/05/19 04/18/19 History acetaminophen [Tylenol Extra 500 mg PO Q6H PRN 04/10/19 04/18/19 History Strength] cyclobenzaprine 10 mg PO TID PRN #20 tab 04/10/19 04/18/19 Rx ketorolac 10 mg PO Q6H PRN #20 tab 04/10/19 04/18/19 Rx fentanyl 25 mcg/hr transdermal 1 patch TD Q72H #2 ea 04/11/19 04/18/19 Rx patch ondansetron HCl 4 mg tablet 4 mg PO TID PRN 5 Days #20 tab 04/15/19 04/18/19 Rx Past Med/Surg History Medical History History of polymyalgia rheumatica (Resolved) Vitamin D deficiency (Chronic) Palpitations (Acute) Osteopenia (Acute) Low back pain (Acute) Insomnia (Acute) Hip pain, right (Acute) Glaucoma (Acute) Gastroesophageal reflux disease (Acute) Dyslipidemia (Acute) Bilateral sensorineural hearing loss (Acute) Abdominal aortic aneurysm (Chronic) Hypertension (Chronic) Hypercholesterolemia (Chronic) Surgical History S/P abdominal hysterectomy S/P appendectomy S/P colonoscopy S/P tonsillectomy and adenoidectomy Family History Mother Hypertension Stroke Other specified hearing loss, bilateral Father Other specified hearing loss, bilateral Cancer Cardiac disorder Social History Preferred Language: [place] Communication Ability: Effective Visual Impairment: No Limitations Hearing Ability: Normal [employer] Outside Sales Representative Required: No marital status: current occupational status: retired Feels Safe at Home: Yes Smoking Status: Never smoker Hx Alcohol Use: No Hx Substance Use: No Childhood Exposure to Second-Hand Smoke: No Review of Systems Review of Systems: All systems reviewed & are unremarkable except as noted in HPI & below Physical Exam Physical Exam: General: patient resting comfortably at 45 degrees, NAD, non- toxic in appearance, AA&O x 4 Skin: warm, dry, intact, no rashes or lesions HEENT: NC/AT, PERRL, EOMI, anicteric sclera, conjunctiva without injection, external ear normal to inspection and nontender, nares patent, moist mucus membranes, dentition intact, no oropharyngeal lesions, neck supple, trachea midline, no LAD, no thyromegaly, no JVD Heart: +S1/S2, regular, no m/r/g Lungs: equal air entry bilaterally, bilateral crackles to midlung prakash Abd: +BS, soft, NT/ND, no masses/organomegaly/ascites Ext: warm, 2+ pulses in UE/LE bilaterally, no clubbing/cyanosis, 1+ pitting edema to the knees bilaterally, legs nontender Neuro: nonfocal, patient AA&O x 4, speech intact, no facial droop, moving all extremities on command with equal strength 5/5 Results & Data Vital Signs (Past 12 Hours) Vital Signs Temp Pulse Resp BP Pulse Ox 04/18/19 18:00 73 16 171/74 H 92 04/18/19 17:30 72 16 94 04/18/19 17:00 72 19 165/76 H 93 04/18/19 16:37 70 18 93 04/18/19 16:32 71 16 154/71 H 92 04/18/19 15:38 36.7 C 77 16 152/78 H 97 Laboratory Results Lab Results 04/18/19 04/18/19 04/18/19 Range/Units 16:30 16:30 16:30 WBC 6.36 (4.8-10.8) K/uL RBC 4.29 (4.2-5.4) M/uL Hgb 13.2 (12.0-16.0) g/dL Hct 38.3 (37-47) % MCV 89.3 (80-100) fL MCH 30.8 (25-34) pg MCHC 34.5 (32-36) g/dL RDW Std Deviation 44.6 (36.4-46.3) fL RDW Coeff of Geraldine 13.6 (11.5-14.5) % Plt Count 274 (130-400) K/uL MPV 9.1 (7.4-10.4) fL Immature Gran % (Auto) 0.3 % Neut % (Auto) 50.5 % Lymph % (Auto) 32.2 % [place] % (Auto) 14.5 % Eos % (Auto) 2.0 % Baso % (Auto) 0.5 % Immature Gran # (Auto) 0.02 (0.00-0.02) K/uL Neut # (Auto) 3.21 (1.4-6.5) K/uL Lymph # (Auto) 2.05 (1.2-3.4) K/uL [place] # (Auto) 0.92 H (0.11-0.59) K/uL Eos # (Auto) 0.13 (0-0.5) K/uL Baso # (Auto) 0.03 (0-0.2) K/uL PT 10.0 (9.0-12.0) Seconds INR 1.0 (0.9-1.1) APTT 25.9 (21.0-31.0) Seconds PTT Ratio 1.0 Sodium 138 (136-145) mmol/L Potassium 4.0 (3.5-5.1) mmol/L Chloride 104 (98-107) mmol/L Carbon Dioxide 27 (21-32) mmol/L Anion Gap 7.0 (3-11) BUN 18 (7-18) mg/dl Creatinine 1.30 H (0.6-1.2) mg/dl Est Cr Clr Drug Dosing 33.5 ml/min Est GFR ( Amer) 44.2 Est GFR (Non-Af Amer) 38.2 BUN/Creatinine Ratio 13.9 (10-20) Glucose 122 H (70-99) mg/dl Calcium 9.2 (8.5-10.1) mg/dl Magnesium 2.2 (1.8-2.4) mg/dl Total Bilirubin 0.6 (0.2-1) mg/dl AST 17 (15-37) U/L ALT 25 (12-78) U/L Alkaline Phosphatase 115 (45-117) U/L Troponin I < 0.015 (0-0.045) ng/ml NT-Pro-B Natriuret Pep 708 (0-1800) pg/ml Total Protein 6.4 (6.4-8.2) gm/dl Albumin 3.4 (3.4-5.0) gm/dl Globulin 3.0 (2.5-4.0) gm/dl Albumin/Globulin Ratio 1.1 (0.9-2) Lipase 101 (73-393) U/L Diagnostic Findings CT angio chest PE protocol CT DOSE: 291.09 mGy.cm HISTORY: 83 years-old Female with PE. Acute shortness of breath TECHNIQUE: Multiple CTA images of the chest were obtained after the intravenous administration of 91 ml Optiray 320. Coronal and sagittal MIPS were obtained from the axial data set and were submitted for review. All measurements were obtained according to NASCET criteria. A dose lowering technique was utilized adhering to the principles of ALARA. COMPARISON: Chest radiograph of same day FINDINGS: CTA: Heart is mildly enlarged. No pericardial effusion. Coronary arterial calcifications are noted. No thoracic aortic aneurysm or dissection. Patency of the imaged great vessels. Pulmonary arterial tree is opacified to the level the subsegmental branches and demonstrates no focal filling defects to suggest pulmonary thromboembolic disease. Reflux of contrast into the IVC. CT CHEST: Heterogeneous thyroid. Mildly prominent periesophageal and subcarinal lymph nodes may be physiologic. No pathologic adenopathy by CT size criteria. Calcified left hilar lymph nodes suggest prior granulomatous disease. Trace right and small left pleural effusions. No pneumothorax. Mild dependent bibasilar consolidation suggestive of atelectasis. Calcified granuloma of the superior segment left lower lobe. Pleural-based 3 mm solid nodule of the left upper lobe, image 214 series 4. Central airways appear patent. Cholecystectomy. No acute process of the imaged upper abdomen. Soft tissues are within normal limits. Mildly displaced acute or subacute appearing fractures are noted about the posterior right fourth and fifth ribs with suggestion of additional acute or subacute nondisplaced fractures of the posterior right sixth, seventh and ninth ribs. No acute vertebral body fracture. IMPRESSION: 1. No evidence of pulmonary thromboembolic disease. 2. Acute or subacute appearing mildly displaced fractures of the posterior right fourth and fifth ribs with nondisplaced fractures of the posterior right sixth, seventh and ninth ribs. No pneumothorax. 3. Trace right and small left pleural effusions with minimal bibasilar opacities suggestive of atelectasis. 4. Cholecystectomy. The above report was generated using voice recognition software. It may contain grammatical, syntax or spelling errors. XR chest 1V portable CLINICAL HISTORY: Chest Pain COMPARISON STUDY: Chest radiograph April 10, 2019. FINDINGS: There is no pneumothorax. Cardiomegaly is noted. There is no overt pulmonary edema. A small left pleural effusion has developed. There is no right pleural effusion. There is no consolidation. Note is made of minimally displaced fractures of the posterior right fourth and fifth ribs. IMPRESSION: 1. Small left pleural effusion. No pneumothorax. 2. Minimally displaced posterior right fourth and fifth rib fractures which are likely subacute. Electronically signed by: Jose Roberto Royal M.D. 04/18/2019 5:06 PM Dictated: 04/18/[id number] Transcribed: 04/18/191702 Electronically signed by: Timothy Andrews M.D. 04/18/2019 5:53 PM Dictated: [id number] Transcribed: 04/18/191739 ECG Additional Comments: Study shows normal sinus rhythm at [address] changes in anterior leads. Code Status & VTE Plan Code Status Full code VTE Prophylaxis Plan VTE Prophylaxis will be ordered: Yes PG Care Time/CCT Total # of Minutes Spent Total Time Spent with Patient: Total time spent is greater than 50% in coordination of care (as documented) at patient's floor/unit and/or counseling patient: (1) Rib fracture Encounter type: initial encounter Fracture type: closed Laterality: right Rib fracture type: single rib Qualified Code(s): S22.31XA - Fracture of one rib, right side, initial encounter for closed fracture (2) Hypertension Hypertension type: essential hypertension Qualified Code(s): I10 - Essential (primary) hypertension
[2019-04-18] MEDS ORDERED: ACETAMINOPHEN 500 MG TAB PO PRN (21:10)
[2019-04-18] MEDS: dilTIAZem HCL 120 MG CAPCR PO SCH (22:16)
[2019-04-18] MEDS: METOPROLOL SUCC 25MG EXT REL TAB PO SCH (22:17)
[2019-04-18] MEDS: LATANOPROST 0.005% OP SOLN 2.5 ML BTL OPB SCH (22:17)
[2019-04-18] MEDS: CEROVITE ADV FORMULA TAB PO SCH (22:17)
[2019-04-18] MEDS: ENOXAPARIN INJ 30 MG/0.3 ML SYR SQ SCH (22:18)
[2019-04-18] MEDS: KETOROLAC TROMETHAMINE 10 MG TABLET PO PRN (22:50)
[2019-04-18] MEDS: CHECK FENTANYL PATCH PLACEMENT SCH (23:26)
[2019-04-19 06:16] LABS: Appearance Urine Clear (Clear); Bacteria Urine Automated 2+ (Negative); Bilirubin Urine Negative (Negative); Blood Urine Trace (Negative); Cast Urine Automated 0 /lpf (0-5); Color Urine Yellow; Glucose Urine UA Negative (Negative); Ketones Urine Negative (Negative); Leukocyte Esterase Urine 1+ (Negative); Nitrite Urine Positive (Negative); Protein Urine Negative (Negative); RBC Urine Automated 0-4 /hpf (0-4); Specific Gravity Urine 1.023 (1.000-1.030); Urobilinogen Urine Negative (Negative)
[2019-04-19] MEDS ORDERED: fentaNYL 12 MCG/HR TDSY TD SCH (07:00)
[2019-04-19 07:28] LABS: Creatinine Clr Calc Pharmacy 37.7 ml/min; Est GFR (African American) 52.4; Est GFR (Non-African American) 45.2; Potassium 3.7 mmol/L (3.5-5.1)
[2019-04-19 07:38] LABS: Thyroid Stimulating Hormone 3.13 uIu/ml (0.300-4.500)
[2019-04-19] MEDS: KETOROLAC TROMETHAMINE 10 MG TABLET PO PRN ×2 (08:02→17:56)
[2019-04-19] MEDS: CALCIUM 600MG + VIT D 400 IU TAB PO SCH (08:03)
[2019-04-19] MEDS: CHOLECALCIFEROL 1,000 UNITS TAB PO SCH (08:04)
[2019-04-19] MEDS: dilTIAZem HCL 120 MG CAPCR PO SCH ×2 (08:04→20:59)
[2019-04-19] MEDS: CEROVITE ADV FORMULA TAB PO SCH (08:04)
[2019-04-19] MEDS: CHECK FENTANYL PATCH PLACEMENT SCH ×2 (08:05→16:08)
[2019-04-19] MEDS ORDERED: fentaNYL 25 MCG/HR TDSY TD SCH (12:15)
[2019-04-19] MEDS ORDERED: BUMETANIDE 1 MG in SYRINGE 0 ML IV ONE (12:15)
[2019-04-19] MEDS: CYCLOBENZAPRINE HCL 10 MG TAB PO PRN ×2 (12:40→20:58)
--- NOTE | 2019-04-19 14:27 | Hospitalist Progress Note ---
Date of Service April 19, 2019 Assessment & Plan (1) SOB (shortness of breath): Patient with 2 days of shortness of breath accompanied by weight gain, edema, orthopnea. No respiratory distress or oxygen requirements. responded well to Bumex 1mg IV on 04/18, weight down 3kg if accurate will give additional dose of Bumex today, follow output and weight echo shows EF is 65-70%, would not call this heart failure, just volume overload at this point dyspnea is improved but not quite back to baseline breathing Cr improved slightly to 1.1 from 1.3, this would NOT qualify as acute kidney injury (2) Pedal edema: Plan as above improved but not resolved with Bumex, give another dose today (3) Pleural effusion: No respiratory distress -Plan as above (4) Rib fracture: Status post mechanical fall resulting in multiple rib fractures on the right side. Pain currently well controlled with current regimen -still with pain, increase Fentanyl back up to 25mcg -Continue Flexeril as needed -Continue Toradol as needed -Incentive spirometry q. hourly while awake (5) Hypertension: Blood pressure elevated on arrival -Continue Toprol at home dose -Continue diltiazem BP more reasonable today, will follow (6) Glaucoma: Continue Xalatan Prophylaxis-Lovenox Code-full Disposition-medical floor with telemetry unit, observation likely d/c home in the morning change to admission since she will require two midnights Subjective patient says she is feeling better, made a lot of urine in response to the Bumex I/O are inaccurate, but by weight she went down by 3kg still feels like she has some fluid to give, some edema in legs bilaterally still with pain in right chest posteriorly from fractures reviewed echo, EF is preserved at 65-70% discussed discharge timing, felt like she could use another dose of Bumex, will see how she feels tomorrow she agreed with plan Review of Systems Review of Systems: All systems reviewed & are unremarkable except as noted in HPI & below Respiratory: + dyspnea on exertion; no cough and no dyspnea Cardiovascular: + edema (bilateral legs) and + problem reported (right posterior chest wall pain with fractures); no chest pain Gastrointestinal: no abdominal pain, no nausea, no vomiting, no constipation and no diarrhea/loose stools Physical Exam Constitutional: WD/WN, vitals as above Eyes: PERRL, conjunctivae normal, anicteric sclerae ENMT: external ear and nose normal, oropharynx normal Neck: trachea midline, no thyromegaly Respiratory: normal respiratory effort, lungs clear to auscultation Cardiovascular: RRR, no murmur, no edema Chest (Breasts): Chest: normal inspection of chest (tender to palpation on right side) Gastrointestinal (Abdomen): normal bowel sounds, soft, nontender, no hepatosplenomegaly Musculoskeletal: no cyanosis or clubbing, extremities motor strength 5/5 Skin: no rashes, warm and dry Neurologic: patellar DTR's 2+ bilat, sensation intact and PERRL, EOMI, accommodation nl, no face palsy, no dysarthria Psychiatric: A+Ox3, euthymic affect Lymphatic: no cervical or axillary lymphadenopathy Results & Data Vital Signs (Past 12 Hours) Vital Signs Temp Pulse Pulse Resp BP Pulse Ox 04/19/19 11:49 36.4 C L 67 18 150/74 H 94 04/19/19 07:39 36.6 C 61 18 153/74 H 95 04/19/19 07:29 65 04/19/19 03:12 37.0 C 71 18 146/67 H 91 Laboratory Results Laboratory Results - last 24 hr 04/18/19 04/18/19 04/18/19 16:30 16:30 16:30 WBC 6.36 RBC 4.29 Hgb 13.2 Hct 38.3 MCV 89.3 MCH 30.8 MCHC 34.5 RDW Std Deviation 44.6 RDW Coeff of Geraldine 13.6 Plt Count 274 MPV 9.1 Immature Gran % (Auto) 0.3 Neut % (Auto) 50.5 Lymph % (Auto) 32.2 [place] % (Auto) 14.5 Eos % (Auto) 2.0 Baso % (Auto) 0.5 Immature Gran # (Auto) 0.02 Neut # (Auto) 3.21 Lymph # (Auto) 2.05 [place] # (Auto) 0.92 H Eos # (Auto) 0.13 Baso # (Auto) 0.03 PT 10.0 INR 1.0 APTT 25.9 PTT Ratio 1.0 Sodium 138 Potassium 4.0 Chloride 104 Carbon Dioxide 27 Anion Gap 7.0 BUN 18 Creatinine 1.30 H Est Cr Clr Drug Dosing 33.5 Est GFR ( Amer) 44.2 Est GFR (Non-Af Amer) 38.2 BUN/Creatinine Ratio 13.9 Glucose 122 H Calcium 9.2 Magnesium 2.2 Total Bilirubin 0.6 AST 17 ALT 25 Alkaline Phosphatase 115 Troponin I < 0.015 NT-Pro-B Natriuret Pep 708 Total Protein 6.4 Albumin 3.4 Globulin 3.0 Albumin/Globulin Ratio 1.1 Lipase 101 TSH Urine Color Urine Appearance Urine pH Ur Specific [place] Urine Protein Urine Glucose (UA) Urine Ketones Urine Blood Urine Nitrite Urine Bilirubin Urine Urobilinogen Ur Leukocyte Esterase Urine WBC (Auto) Urine RBC (Auto) U Hyaline Cast (Auto) U Epithel Cells (Auto) Urine Bacteria (Auto) 04/19/19 04/19/19 06:00 06:35 WBC RBC Hgb Hct MCV MCH MCHC RDW Std Deviation RDW Coeff of Geraldine Plt Count MPV Immature Gran % (Auto) Neut % (Auto) Lymph % (Auto) [place] % (Auto) Eos % (Auto) Baso % (Auto) Immature Gran # (Auto) Neut # (Auto) Lymph # (Auto) [facility] # (Auto) Eos # (Auto) Baso # (Auto) PT INR APTT PTT Ratio Sodium 139 Potassium 3.7 Chloride 102 Carbon Dioxide 28 Anion Gap 9.0 BUN 15 Creatinine 1.13 Est Cr Clr Drug Dosing 37.7 Est GFR ( Amer) 52.4 Est GFR (Non-Af Amer) 45.2 BUN/Creatinine Ratio 13.0 Glucose 84 Calcium 9.0 Magnesium Total Bilirubin AST ALT Alkaline Phosphatase Troponin I NT-Pro-B Natriuret Pep Total Protein Albumin Globulin Albumin/Globulin Ratio Lipase TSH 3.130 Urine Color Yellow Urine Appearance Clear Urine pH 8.0 H Ur Specific [place] 1.023 Urine Protein Negative Urine Glucose (UA) Negative Urine Ketones Negative Urine Blood Trace H Urine Nitrite Positive A Urine Bilirubin Negative Urine Urobilinogen Negative Ur Leukocyte Esterase 1+ H Urine WBC (Auto) 5-10 H Urine RBC (Auto) 0-4 U Hyaline Cast (Auto) 0 U Epithel Cells (Auto) 10-20 H Urine Bacteria (Auto) 2+ H Medications Administered Current Inpatient Medications Acetaminophen (Tylenol) 500 mg PO Q6H PRN PRN Reason: Pain Stop: 05/18/19 21:09 Cyclobenzaprine HCl (Flexeril) 10 mg PO TID PRN PRN Reason: muscle spasm Stop: 05/18/19 21:09 Last Admin: 04/19/19 12:40 Dose: 10 mg Documented by: Diltiazem HCl (Cardizem Cd) 120 mg PO QAM [facility] Stop: 05/19/19 08:59 Last Admin: 04/19/19 08:04 Dose: 120 mg Documented by: Diltiazem HCl (Cardizem Cd) 240 mg PO HS [facility] Stop: 05/18/19 21:09 Last Admin: 04/18/19 22:16 Dose: 240 mg Documented by: Enoxaparin Sodium (Lovenox) 30 mg SQ Q24H [facility] Stop: 05/18/19 21:59 Last Admin: 04/18/19 22:18 Dose: 30 mg Documented by: Fentanyl (Duragesic) 25 mcg TD Q3D@1215 [facility] Stop: 05/03/19 12:14 Last Admin: 04/19/19 12:41 Dose: 25 mcg Documented by: Ketorolac Tromethamine (Toradol) 10 mg PO Q6H PRN PRN Reason: pain Stop: 04/23/19 21:09 Last Admin: 04/19/19 08:02 Dose: 10 mg Documented by: Latanoprost (Xalatan Oph) 1 drops OPB [facility] Stop: 05/18/19 21:09 Last Admin: 04/18/19 22:17 Dose: 1 drops Documented by: Metoprolol Succinate (Toprol Xl) 25 mg PO HS [facility] Stop: 05/18/19 21:09 Last Admin: 04/18/19 22:17 Dose: 25 mg Documented by: Miscellaneous (Fentanyl Patch Remove & Waste) 1 ea N/A Q72H [facility] Stop: 05/19/19 12:13 Last Admin: 04/19/19 12:42 Dose: 1 ea Documented by: Miscellaneous (Fentanyl Patch Check Placement) 1 ea N/A QS [facility] Stop: 05/19/19 15:59 Multivitamins/Minerals (Caltrate Plus) 1 tab PO QAM [facility] Stop: 05/19/19 08:59 Last Admin: 04/19/19 08:03 Dose: 1 tab Documented by: Multivitamins/Minerals (Multivitamin W/ Minerals Tab) 1 tab PO DAILY [facility] Stop: 05/18/19 21:09 Last Admin: 04/19/19 08:04 Dose: 1 tab Documented by: Vitamin D (Vitamin D3) 1,000 units PO QAM [facility] Stop: 05/19/19 08:59 Last Admin: 04/19/19 08:04 Dose: 1,000 units Documented by: PG Care Time/CCT Total # of Minutes Spent Total Time Spent with Patient: Total time spent is greater than 50% in coordination of care (as documented) at patient's floor/unit and/or counseling patient: (1) Rib fracture Encounter type: initial encounter Fracture type: closed Laterality: right Rib fracture type: single rib Qualified Code(s): S22.31XA - Fracture of one rib, right side, initial encounter for closed fracture (2) Hypertension Hypertension type: essential hypertension Qualified Code(s): I10 - Essential (primary) hypertension
[2019-04-19] MEDS: LATANOPROST 0.005% OP SOLN 2.5 ML BTL OPB SCH (21:00)
[2019-04-19] MEDS: METOPROLOL SUCC 25MG EXT REL TAB PO SCH (21:00)
[2019-04-19] MEDS: ENOXAPARIN INJ 30 MG/0.3 ML SYR SQ SCH (21:01)
[2019-04-20] MEDS: CHECK FENTANYL PATCH PLACEMENT SCH ×2 (01:21→07:48)
[2019-04-20] MEDS: CHOLECALCIFEROL 1,000 UNITS TAB PO SCH (07:48)
[2019-04-20] MEDS: dilTIAZem HCL 120 MG CAPCR PO SCH (07:48)
[2019-04-20] MEDS: CALCIUM 600MG + VIT D 400 IU TAB PO SCH (07:48)
[2019-04-20] MEDS: CEROVITE ADV FORMULA TAB PO SCH (07:49)
[2019-04-20] MEDS: KETOROLAC TROMETHAMINE 10 MG TABLET PO PRN (08:26)
--- NOTE | 2019-04-20 14:36 | Discharge Summary ---
Date of Service April 20, 2019 Admission HPI Per Admitting Provider Osiris Castro is a pleasant 83-year-old female with history of polymyalgia rheumatica, GERD, hypertension, AAA presenting with dyspnea. Patient had a mechanical fall 2 weeks ago which resulted in multiple left rib fractures. She was seen in outpatient clinic and was started on Flexeril, Toradol, fentanyl patch. Patient reports that her pain is fairly well controlled with this regimen. She presents today with 2 days of dyspnea on exertion, weight gain, edema and orthopnea. Patient reports that she becomes quite short of breath with ambulating short distances of approximately 30 feet. She reports a 6 pound unintentional weight gain in the last 4 to 5 days, no change in diet or medications. She also reports bilateral lower extremity edema and orthopnea over the last 3 to 4 days. She denies chest pain or palpitations but states that she occasionally has brief episodes of intermittent chest discomfort that occur at rest and last approximately 15 seconds. No additional complaints at this time ER course: Bumex x1 mg IV Principal Diagnosis Dyspnea on exertion due to volume overload Discharge Exam Constitutional WD/WN, vitals as above Eyes PERRL, conjunctivae normal, anicteric sclerae ENMT external ear and nose normal, oropharynx normal Neck trachea midline, no thyromegaly Respiratory normal respiratory effort, lungs clear to auscultation Cardiovascular RRR, no murmur, no edema Chest (Breasts) Chest: normal inspection of chest (tender to palpation on right side) Gastrointestinal (Abdomen) normal bowel sounds, soft, nontender, no hepatosplenomegaly Musculoskeletal no cyanosis or clubbing, extremities motor strength 5/5 Skin no rashes, warm and dry Neurologic patellar DTR's 2+ bilat, sensation intact and PERRL, EOMI, accommodation nl, no face palsy, no dysarthria Psychiatric A+Ox3, euthymic affect Lymphatic no cervical or axillary lymphadenopathy Discharge Data Allergies Allergy/AdvReac Type Severity Reaction Status Date / Time aspirin Allergy Severe HEART Verified 04/18/19 14:59 RACES, INCREASES B/P meperidine Allergy Severe HEART Verified 04/18/19 14:59 RACES, INCREASES B/P oxycodone Allergy Severe HEART Verified 04/18/19 14:59 RACES, INCREASES B/P tramadol Allergy Severe HEART Verified 04/18/19 14:59 RACES, INCREASES B/P ibuprofen Allergy Intermediate ITCHY Verified 04/19/19 11:59 acetaminophen [From Vicodin] Allergy Unknown Unknown Verified 04/18/19 14:59 cephalexin [From Keflex] Allergy Unknown Unknown Verified 04/18/19 14:59 Cephalosporins Allergy Unknown SWELLING Verified 04/18/19 14:59 morphine Allergy Unknown Unknown Verified 04/18/19 14:59 Penicillins Allergy Unknown SWELLING Verified 04/18/19 14:59 zolpidem [From Ambien] Allergy Unknown Unknown Verified 04/19/19 11:59 codeine AdvReac Intermediate ITCHY Verified 04/19/19 11:59 hydrocodone AdvReac Intermediate ITCHY Verified 04/19/19 11:59 baclofen Allergy Unknown Unknown Uncoded 04/18/19 14:59 Ketorolac Tromethamine TABS Allergy Unknown Unknown Uncoded 04/18/19 14:59 Lipitor TABS Allergy Unknown Unknown Uncoded 04/18/19 14:59 Pravachol TABS Allergy Unknown Unknown Uncoded 04/18/19 14:59 Consultations 04/18/19 18:14 ED Decision to Admit Stat Ordered Studies 04/18/19 17:16 CT angio chest PE protocol Stat Hospital Course (1) SOB (shortness of breath): Patient with 2 days of shortness of breath accompanied by weight gain, edema, orthopnea. No respiratory distress or oxygen requirements. responded well to Bumex 1mg IV on 04/18, weight down 3kg if accurate further response to Bumex 1mg IV on 04/19 no longer with edema, no dyspnea at rest or on exertion on the day of discharge echo shows EF is 65-70%, would not call this heart failure, just volume overload at this point Cr is stable will recommend that she use Bumex 1mg PO daily PRN for any weight gain or edema confirmed that she has a scale at home, will weigh herself daily (2) Pedal edema: Plan as above resolved with Bumex will use Bumex PRN at home (3) Pleural effusion: No respiratory distress -Plan as above (4) Rib fracture: Status post mechanical fall resulting in multiple rib fractures on the right side. Pain currently well controlled with current regimen -still with pain,continue Fentanyl 25mcg -Continue Flexeril as needed -Continue Toradol as needed -Incentive spirometry q. hourly while awake recommend follow up with PCP in one week, consider titrating back Fentanyl or trying PO pain control PRN (5) Hypertension: Blood pressure elevated on arrival -Continue Toprol at home dose -Continue diltiazem BP more reasonable the past two days (6) Glaucoma: Continue Xalatan Prophylaxis-Lovenox Code-full Disposition d/c to home Total Time Total Time Spent Total Time Spent (In Minutes): 32 minutes Total Time Includes: Examination of the Patient, Discharge Planning, Medication Reconciliation and Other (discussion with family at the bedside) Discharge Plan Discharge Items Patient Disposition: Home - Self-Care Reason For Visit: SOB Discharge Diagnosis: Peripheral edema Rib fractures Condition: Good Discharge Goals: Decrease discomfort and Improve disease control Activity: Resume your previous activity Non-emergency contact: Primary Care Provider Call non-emergency contact if: you have any medication questions, your symptoms worsen, your pain is not controlled and you have a fever Follow-up/Referrals: Karen Tobar PA-C [Primary Care Provider] - Diet: Regular Addtl Provider Instructions: Medications: - BUMEX: use as needed daily for edema or weight gain, see below Peripheral edema, shortness of breath due to volume overload no evidence of heart failure, echo showed normal EF of 65-70% and no diastolic dysfunction, no valve disease you responded well to Bumex 1mg on 04/18 and 04/19 do not recommend that you take this every days, just as needed when you get home you should weigh yourself and record this weight as a baseline if at any time you weigh 2-3 lbs more than this weight then take the Bumex and reassess weight the following morning also, if you develop peripheral edema like you just experienced you can take a Bumex to remove the extra fluid Rib fractures: continue to use the Fentanyl and Flexeril for pain control important to stay active, to take deep breaths pain could persist for a few weeks but will slowly get better recommend follow up with primary care doctor in a week, discuss stopping Fentanyl patch and just using as needed Oxycodone or Ultram FOLLOW UP - call tomorrow for hospital follow up later this week with Karen Tobar Prescriptions: New bumetanide 1 mg tablet 1 mg PO DAILY PRN (Reason: edema) Qty: 30 RF: 0 Continued ondansetron HCl 4 mg tablet 4 mg PO TID PRN (Reason: nausea and vomiting) 5 Days Qty: 20 RF: 1 PreserVision AREDS-2 [id number] [id number]-mg capsule 1 tab PO TID RF: 0 fentanyl 25 mcg/hr patch 72 hour 1 patch TD Q72H Qty: 2 RF: 0 latanoprost [Xalatan] 0.005 % drops 1 drp OPB HS RF: 0 melatonin 3 mg Tablet 3 mg PO HS RF: 0 metoprolol succinate [Toprol XL] 25 mg Tablet Extended Release 24 Hr 25 mg PO HS RF: 0 cholecalciferol (vitamin D3) [Vitamin D3] 1,000 unit Capsule 1,000 unit PO QAM RF: 0 Caltrate 600 plus D 600 mg (1,500 mg)-800 unit Tablet,Chewable 1 tab PO QAM RF: 0 diltiazem HCl 120 mg capsule,extended release 24hr 240 mg PO HS RF: 0 diltiazem HCl 120 mg capsule,extended release 24hr 120 mg PO QAM RF: 0 acetaminophen [Tylenol Extra Strength] 500 mg Tablet 500 mg PO Q6H PRN (Reason: Pain) RF: 0 No Action cyclobenzaprine 10 mg tablet 10 mg PO TID PRN (Reason: muscle spasm) Qty: 20 RF: 0 ketorolac 10 mg tablet 10 mg PO Q6H PRN (Reason: pain) Qty: 20 RF: 0 Stand-Alone Forms: [facility] Discharge Orders: Discharge Order (Routine); Ordered 04/20/19 Ordered By: Minh Iverson Admission Data Admit Date/Time: 04/19/19 14:27 Attending Provider: Minh Iverson Admit Provider: Daria Lopez Primary Care Provider: Karen Tobar Other Providers: Daria Lopez Service: Telemetry Medical Other Interventions: Discharge Summary Assessment (RN) Last Done: 04/20/19 09:25 DC Date/Time DO NOT enter until pt leaves facility: 04/20/19 10:00
== END 2019-04-20 10:00 | disposition home or self-care (01) | DRG 641 ==
LOC: ED 15:25 → 2N 15:25 → SUATTDRO 19:08 → 2N 19:30

== ENCOUNTER 2019-12-03 02:06 | Observation (INO) ==
[2019-12-03] MEDS ORDERED: ASPIRIN CHEW 324 MG ONE (02:14)
[2019-12-03] MEDS ORDERED: fentaNYL citrate 100 MCG/2 ML VIAL IV STA (02:19)
[2019-12-03] MEDS ORDERED: NITROGLYCERIN SL 0.4 MG/TAB TAB SL STA (02:19)
--- NOTE | 2019-12-03 02:25 | Emergency Department Note ---
Impression & Plan Left-sided chest pain ED Provider Note Name: AMADA FRANCISCO Age: 83 Sex: F Arrives Via: Ambulance Informant: Patient, EMS ED Provider: Rylan Olivas MD Chief Complaint: Left Chest Pain Impression: Left-Sided Chest Pain Medical Decision Makin yr old female with history of HTN, DLP though no previous cardiac disease arrives with what she refers to as crushing left chest pain that is improving with nitro. Received 324mg PO ASA by EMS. Given further nitro/fentanyl on arrival with further improvement and she is declining further nitro due to heada travis. She has no evidence PE, dissection, no infection. CXR clear. EKG with some lateral T wave changes from EKG 9 months ago. No Stemi and initial trop negative. Patient stable and feeling well. She has no evidence of shingles and denies any recent trauma to ribs nor falls. She is comfortable with monitoring in hospital for cardiac rule out. Prior Medical Record and Triage/Nursing Notes reviewed by Me Differentials:Cardiac ischemia, aortic dissection, pulmonary embolism, pneumothorax, pneumonia, pericarditis, myocarditis, esophageal rupture, GERD, cholecystitis, pancreatitis, musculoskeletal, as well as other pathologies. Vital Signs: reviewed and remarkable for no significant abnormalities Interventions: Saline Lock, Fentanyl 25mcg IV, SLNTG Labs:Reviewed and remarkable for no significant abnormalities Imaging:X ray results are stated below per my interpretation: Chest: 1 view: No infiltrate, no effusion, normal cardiac border. EKG:Per My Interpretation: Indication Chest Pain: NSR 62 bpm, qtc 430. No Ectopy. No STEMI. There are lateral T wave inversions/flattening. Compared to EKG 04/18/19, there are new lateral T wave inversions. Cardiac/Tele Monitoring: Cardiac Monitoring: An Order was placed for continuous cardiac monitoring. The monitor shows a rate of 65 with a normal sinus rhythm. Consults:Dr Liam MATTSON Hospitalist Plan: Disposition:Hospitalization. Condition: Good Blood pressure:Normal.No Referral necessary History of Present Illness:83 / F arrives for evaluation of left chest pain. Patient notes she woke up around 11pm with left sided chest pain. Gradually worsening throughout the night. Dull/Crushing in nature. No radiation. No nausea, vomiting, shortness of breath, cough, fevers, chills, syncope, abdominal pain, back pain, nor other symptoms. Denies recent leg swelling nor calf pain. No sick contacts nor recent travel. Nothing made symptoms better nor worse. She was given ASA 324mg PO by EMS as well as SLNTG which decreased pain from a 8/10 to a 5/10. She notes this caused mild headache which is now resolved. No previous CAD history though noted HTN, DLP. No DMII. Father had heart disease. ROS: See above HPI for pertinent positives & negatives. A total of 10 systems reviewed and were otherwise negative. Past Medical History:See Below Past Surgical History:See Below Family History:See Below Social History:See Below Home Medications:See Below Allergies:See Below Vitals:Blood Pressure: 139/75, Pulse 57, RR 18, T 37C, O2 95% on RA Physical Exam: GENERAL: Patient is elderly appearing and in mild distress. EYES: No scleral icterus, unremarkable pupils. ENT: Mucous membranes moist, no nasal congestion. NECK: No masses appreciated, nomeningismus, trachea is midline. RESPIRATORY: No dyspnea. Clear to auscultation and equal bilaterally. No wheeze, no rhonchi. CARDIOVASCULAR: Regular rate and rhythm.No murmurs, rubs, gallops appreciated. GASTROINTESTINAL: Abdomen soft, non-tender, no peritonitis.Bowel sounds positive.No masses appreciated. BACK: No midline tenderness, no CVA tenderness EXTREMITIES: Normal motion all extremities, no cyanosis, no edema. NEUROLOGIC: Alert and oriented, no acute motor or sensory deficits, no focal weakness, cranial nerves grossly intact. SKIN: No rash, no jaundice, no diaphoresis. PSYCH: Appropriate GCS: 15 ED Course: Times/Reassessments: Stable, feeling better post nitro/fentanyl, comfortable with hospitalization Rylan Olivas MD Past Med/Surg History Social History Preferred Language: Bruneian Communication Ability: Effective Visual Impairment: No Limitations Hearing Ability: Use of Hearing Aid Site Surveyor Required: No Beliefs That Will Affect Care: None marital status: Current Living Situation: Spouse current occupational status: retired Feels Safe at Home: Yes Smoking Status: Never smoker Hx Alcohol Use: Yes Alcohol type: wine and hard liquor Alcohol Intake Frequency: Holidays/Special Occasions Hx Substance Use: No Childhood Exposure to Second-Hand Smoke: Yes caffeine: Yes Dental Care, Regularly: No Physical Activity Frequency: Does not Exercise Seatbelt Use: always Sunscreen Use: No Allergies Allergies Allergy/AdvReac Type Severity Reaction Status Date / Time aspirin Allergy Severe HEART Verified 12/03/19 03:03 RACES, INCREASES B/P meperidine Allergy Severe HEART Verified 12/03/19 03:03 RACES, INCREASES B/P oxycodone Allergy Severe HEART Verified 12/03/19 03:03 RACES, INCREASES B/P tramadol Allergy Severe HEART Verified 12/03/19 03:03 RACES, INCREASES B/P ibuprofen Allergy Intermediate ITCHY Verified 12/03/19 03:03 acetaminophen [From Vicodin] Allergy Unknown Unknown Verified 12/03/19 03:03 cephalexin [From Keflex] Allergy Unknown Unknown Verified 12/03/19 03:03 Cephalosporins Allergy Unknown SWELLING Verified 12/03/19 03:03 morphine Allergy Unknown Unknown Verified 12/03/19 03:03 Penicillins Allergy Unknown SWELLING Verified 12/03/19 03:03 zolpidem [From Ambien] Allergy Unknown Unknown Verified 12/03/19 03:03 codeine AdvReac Intermediate ITCHY Verified 12/03/19 03:03 hydrocodone AdvReac Intermediate ITCHY Verified 12/03/19 03:03 baclofen Allergy Unknown Unknown Uncoded 12/03/19 03:03 Ketorolac Tromethamine TABS Allergy Unknown Unknown Uncoded 12/03/19 03:03 Lipitor TABS Allergy Unknown Unknown Uncoded 12/03/19 03:03 Pravachol TABS Allergy Unknown Unknown Uncoded 12/03/19 03:03 Home Meds Home Medications Medication Instructions Recorded Confirmed cholecalciferol (vitamin D3) 1,000 unit PO QAM 05/24/18 12/03/19 [Vitamin D3] latanoprost [Xalatan] 1 drp OPB HS 05/24/18 12/03/19 melatonin 3 mg PO 05/24/18 12/03/19 vit C 250 mg-E 200 unit-zinc 40 1 tab PO BID 03/18/19 12/03/19 mg-copper 1 [id number] capsule acetaminophen [Tylenol Extra 500 mg PO Q6H PRN 04/10/19 12/03/19 Strength] diltiazem HCl 120 mg See Rx Instructions PO HS 09/17/19 12/03/19 capsule,extended release 24 hr Previous Rx's Medication Instructions Recorded metoprolol succinate 25 mg 25 mg PO HS #90 tab 11/27/19 tablet,extended release 24 hr Results & Data (ED) Vital Signs Vital Signs - 24 hr 12/03/19 02:13 12/03/19 02:48 12/03/19 03:19 Temperature 37.0 C Temperature Source Oral Pulse Rate 65 54 L Pulse Rate [Right Finger] 59 L Pulse Rate from SpO2 Sensor 54 L Respiratory Rate 18 16 21 Respiratory Effort / Characteristics Non-Labored Spontaneous Respiratory Depth Normal Respiratory Pattern Regular Blood Pressure 148/75 H 130/62 Blood Pressure [Right Arm] 122/60 Blood Pressure Mean 99 90 Blood Pressure Mean [Right Arm] 80 Blood Pressure Position Lying Pulse Oximetry 95 94 93 Oxygen Delivery Method Room Air Room Air Sepsis Recent Fever Within 48 Hours No Sepsis Action Taken by Nursing No Action Required 12/03/19 03:30 12/03/19 04:01 12/03/19 04:30 Temperature Temperature Source Pulse Rate 56 L 54 L 55 L Pulse Rate [Right Finger] Pulse Rate from SpO2 Sensor 57 L 54 L 56 L Respiratory Rate 13 16 15 Respiratory Effort / Characteristics Respiratory Depth Respiratory Pattern Blood Pressure 136/64 145/68 H 154/67 H Blood Pressure [Right Arm] Blood Pressure Mean 90 112 121 Blood Pressure Mean [Right Arm] Blood Pressure Position Pulse Oximetry 94 96 96 Oxygen Delivery Method Room Air Room Air Room Air Sepsis Recent Fever Within 48 Hours Sepsis Action Taken by Nursing Laboratory Data Result diagrams: 12/03/19 02:29 12/03/19 02:29 Lab Results 12/03/19 12/03/19 12/03/19 Range/Units 02:29 02:29 02:29 WBC 7.67 (4.8-10.8) K/uL RBC 4.52 (4.2-5.4) M/uL Hgb 13.4 (12.0-16.0) g/dL Hct 40.6 (37-47) % MCV 89.8 (80-100) fL MCH 29.6 (25-34) pg MCHC 33.0 (32-36) g/dL RDW Std Deviation 46.5 H (36.4-46.3) fL RDW Coeff of Geraldine 14.1 (11.5-14.5) % Plt Count 243 (130-400) K/uL MPV 9.4 (7.4-10.4) fL Immature Gran % (Auto) 0.1 % Neut % (Auto) 53.0 % Lymph % (Auto) 32.9 % [place] % (Auto) 11.1 % Eos % (Auto) 2.5 % Baso % (Auto) 0.4 % Immature Gran # (Auto) 0.01 (0.00-0.02) K/uL Neut # (Auto) 4.07 (1.4-6.5) K/uL Lymph # (Auto) 2.52 (1.2-3.4) K/uL [place] # (Auto) 0.85 H (0.11-0.59) K/uL Eos # (Auto) 0.19 (0-0.5) K/uL Baso # (Auto) 0.03 (0-0.2) K/uL PT 10.8 (9.0-12.0) Seconds INR 1.0 (0.9-1.1) Sodium 139 (136-145) mmol/L Potassium 3.8 (3.5-5.1) mmol/L Chloride 110 H (98-107) mmol/L Carbon Dioxide 23 (21-32) mmol/L Anion Gap 6.0 (3-11) BUN 15 (7-18) mg/dl Creatinine 1.09 (0.6-1.2) mg/dl Est Cr Clr Drug Dosing 37.8 ml/min Est GFR ( Amer) 54.7 Est GFR (Non-Af Amer) 47.2 BUN/Creatinine Ratio 13.3 (10-20) Glucose 126 H (70-99) mg/dl Calcium 9.2 (8.5-10.1) mg/dl Magnesium 2.2 (1.8-2.4) mg/dl Troponin I < 0.015 (0-0.045) ng/ml Administered Medications Discontinued Medications Fentanyl Citrate (Fentanyl Citrate) 25 mcg IV NOW STA Stop: 12/03/19 02:20 Last Admin: 12/03/19 02:35 Dose: 25 mcg Documented by: [id number] Nitroglycerin (Nitrostat) 0.4 mg SL NOW STA Stop: 12/03/19 02:20 Last Admin: 12/03/19 02:36 Dose: 0.4 mg Documented by: [id number] Discharge Plan Visit Data Chief Complaint: Chest Pain Stated Complaint: chest pain ED Provider: Rylan Olivas Discharge Problem: Left-sided chest pain Forms Stand Alone Forms: [facility] Prescriptions Prescriptions: No Action metoprolol succinate [Toprol XL] 25 mg tablet extended release 24 hr 25 mg PO HS Qty: 90 RF: 3 PreserVision AREDS-2 [id number]-mg capsule 1 tab PO BID RF: 0 latanoprost [Xalatan] 0.005 % drops 1 drp OPB HS RF: 0 melatonin 3 mg Tablet 3 mg PO HS RF: 0 cholecalciferol (vitamin D3) [Vitamin D3] 1,000 unit Capsule 1,000 unit PO QAM RF: 0 diltiazem HCl 120 mg capsule,extended release 24hr See Rx Instructions PO HS RF: 0 acetaminophen [Tylenol Extra Strength] 500 mg Tablet 500 mg PO Q6H PRN (Reason: Pain) RF: 0
[2019-12-03 02:40] LABS: Basophils # (auto) 0.03 K/uL (0-0.2); Basophils % (auto) 0.4 %; Eosinophils # (auto) 0.19 K/uL (0-0.5); Eosinophils % (auto) 2.5 %; Hematocrit (blood only) 40.6 % (37-47); Hemoglobin 13.4 g/dL (12.0-16.0); Immature Granulocytes # (auto) 0.01 K/uL (0.00-0.02); Immature Granulocytes % (auto) 0.1 %; Lymphocytes # (auto) 2.52 K/uL (1.2-3.4); Lymphocytes % (auto) 32.9 %; Mean Corpuscular Hemoglobin 29.6 pg (25-34); Mean Corpuscular Volume 89.8 fL (80-100); Mean Platelet Volume 9.4 fL (7.4-10.4); Monocytes # (auto) 0.85 K/uL (0.11-0.59); Monocytes % (auto) 11.1 %; Neutrophils # (auto) 4.07 K/uL (1.4-6.5); Platelet Count 243 K/uL (130-400); RDW Coefficient of Variation 14.1 % (11.5-14.5); RDW Standard Deviation 46.5 fL (36.4-46.3); Red Blood Count 4.52 M/uL (4.2-5.4); White Blood Count 7.67 K/uL (4.8-10.8)
[2019-12-03 02:49] LABS: Prothrombin Time 10.8 Seconds (9.0-12.0)
[2019-12-03 03:03] LABS: BUN Creatinine Ratio 13.3 (10-20); Blood Urea Nitrogen 15 mg/dl (7-18); Calcium 9.2 mg/dl (8.5-10.1); Carbon Dioxide 23 mmol/L (21-32); Chloride 110 mmol/L (98-107); Creatinine Clr Calc Pharmacy 37.8 ml/min; Est GFR (African American) 54.7; Est GFR (Non-African American) 47.2; Glucose 126 mg/dl (70-99); Magnesium 2.2 mg/dl (1.8-2.4); Potassium 3.8 mmol/L (3.5-5.1); Sodium 139 mmol/L (136-145)
[2019-12-03 03:08] LABS: Troponin I < 0.015 ng/ml (0-0.045)
--- NOTE | 2019-12-03 04:55 | History & Physical Report ---
Date of Service December 03, 2019 Assessment & Plan (1) Chest pain at rest: Osiris Castro is a 83 y/o F with PMH significant for HTN, palpitations, hypercholesteremia, and abdominal aortic aneurysm, presented to the ER for evaluation of left chest pain that started about 11pm, and gradually worsened throughout the night Chest pain at rest: - atypical angina presentation, maintained over several hours - relieved by ASA and SL nitroglycerin - negative troponin; will continue to trend Q6h x2 - EKG with marginal T-wave flattening, no ST segment changes - monitor on telemetry - Cardiology consulted HTN: - continue home metoprolol and diltiazem Palpitations: - continue home metoprolol and diltiazem Abdominal aortic aneurysm: - 12mm saccular infrarenal aneurysm - last monitored on 05/30/19 Diet: Heart healthy DVT ppx: SCDs Code Status: Conditional: no intubation or mechanical ventilation (2) Hypertension: (3) Abdominal aortic aneurysm: (4) Palpitations: History of Present Illness Chief Complaint: Chest pain at rest Primary Care Provider: Pedro Ramesh DO Osriis Castro is a 83 y/o F with PMH significant for HTN, palpitations, hypercholesteremia, and abdominal aortic aneurysm, presented to the ER for evaluation of left chest pain that started about 11pm, and gradually worsened throughout the night. She describes the pain as a dull crushing pain, without radiation that sits along her left breast line. Denies nausea, vomiting, shortness of breath, cough, fevers, chills, syncope, abdominal pain, dysuria, changes in urinary frequency or urgency, arm or leg swelling, or calf pain. Received ASA via EMS as well as sub-lingual nitroglycerin which decreased pain. She notes this caused mild headache which is now resolved. No previous CAD history though noted HTN, DLP; sees Dr. Lucas, and so she would like to be evaluated given her no previous cardiac disease. Allergies Allergy/AdvReac Type Severity Reaction Status Date / Time ibuprofen Allergy Intermediate ITCHY Verified 12/03/19 03:03 cephalexin [From Keflex] Allergy Unknown Unknown Verified 12/03/19 03:03 Cephalosporins Allergy Unknown SWELLING Verified 12/03/19 03:03 morphine Allergy Unknown Unknown Verified 12/03/19 03:03 Penicillins Allergy Unknown SWELLING Verified 12/03/19 03:03 zolpidem [From Ambien] Allergy Unknown Unknown Verified 12/03/19 03:03 baclofen Allergy Unknown Verified 12/03/19 05:49 ketorolac Allergy Unknown Verified 12/03/19 05:49 aspirin AdvReac Severe HEART Verified 12/03/19 05:49 RACES, INCREASES B/P meperidine AdvReac Severe HEART Verified 12/03/19 05:49 RACES, INCREASES B/P oxycodone AdvReac Severe HEART Verified 12/03/19 05:49 RACES, INCREASES B/P tramadol AdvReac Severe HEART Verified 12/03/19 05:49 RACES, INCREASES B/P codeine AdvReac Intermediate ITCHY Verified 12/03/19 03:03 hydrocodone AdvReac Intermediate ITCHY Verified 12/03/19 03:03 atorvastatin [From Lipitor] AdvReac Unknown Verified 12/03/19 05:49 pravastatin [From Pravachol] AdvReac Unknown Verified 12/03/19 05:49 Home Medications Home Medications Medication Instructions Recorded Confirmed Type cholecalciferol (vitamin D3) 1,000 unit PO QAM 05/24/18 12/03/19 History [Vitamin D3] latanoprost [Xalatan] 1 drp OPB HS 05/24/18 12/03/19 History melatonin 3 mg PO HS 05/24/18 12/03/19 History vit C 250 mg-E 200 unit-zinc 40 1 tab PO BID 03/18/19 12/03/19 History mg-copper 1 [id number] capsule acetaminophen [Tylenol Extra 500 mg PO Q6H PRN 04/10/19 12/03/19 History Strength] diltiazem HCl 120 mg See Rx Instructions PO HS 09/17/19 12/03/19 History capsule,extended release 24 hr metoprolol succinate 25 mg 25 mg PO HS #90 tab 11/27/19 12/03/19 Rx tablet,extended release 24 hr Past Med/Surg History Medical History Abdominal aortic aneurysm (Chronic) Bilateral sensorineural hearing loss (Acute) Dyslipidemia (Acute) Gastroesophageal reflux disease (Acute) Glaucoma (Acute) Hip pain, right (Acute) History of polymyalgia rheumatica (Resolved) Hypercholesterolemia (Chronic) Hypertension (Chronic) Insomnia (Acute) Low back pain (Acute) Multiple rib fractures involving four or more ribs Osteopenia (Acute) Palpitations (Acute) Right hip tendonitis Trochanteric bursitis, right hip Vitamin D deficiency (Chronic) Surgical History S/P abdominal hysterectomy S/P appendectomy S/P colonoscopy S/P tonsillectomy and adenoidectomy Family History Mother Hypertension Stroke Other specified hearing loss, bilateral Father Other specified hearing loss, bilateral Cancer Cardiac disorder Social History Preferred Language: Dutch Communication Ability: Effective Visual Impairment: No Limitations Hearing Ability: Use of Hearing Aid 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 Required: No Beliefs That Will Affect Care: None marital status: Current Living Situation: Spouse current occupational status: retired Feels Safe at Home: Yes Smoking Status: Never smoker Hx Alcohol Use: No Hx Substance Use: No Childhood Exposure to Second-Hand Smoke: Yes caffeine: Yes Dental Care, Regularly: No Physical Activity Frequency: Does not Exercise Seatbelt Use: always Sunscreen Use: No Review of Systems Review of Systems: All systems reviewed & are unremarkable except as noted in HPI & below Physical Exam Constitutional: WD/WN, vitals as above Eyes: PERRL, conjunctivae normal, anicteric sclerae ENMT: external ear and nose normal, oropharynx normal Neck: normal visual inspection Respiratory: normal respiratory effort, lungs clear to auscultation Auscultation: no crackles, no rales and no wheezes Cardiovascular: Rate/Rhythm: regular rate and regular rhythm Heart Sounds: normal S1 and normal S2; no gallop, no murmur and no cardiac rub Vessels: normal peripheral pulses; no JVD Extremities: no pedal edema Gastrointestinal (Abdomen): normal bowel sounds, soft, nontender, no hepato splenomegaly Musculoskeletal: no cyanosis or clubbing, extremities motor strength 5/5 Skin: no rashes, warm and dry Neurologic: patellar DTR's 2+ bilat, sensation intact Psychiatric: A+Ox3, euthymic affect Lymphatic: no cervical or axillary lymphadenopathy Results & Data Results & Data ([facility]) Vital Signs (Past 12 Hours) Vital Signs Temp Pulse Pulse Resp BP BP Pulse Ox 12/03/19 04:30 55 L 15 154/67 H 96 12/03/19 04:01 54 L 16 145/68 H 96 12/03/19 03:30 56 L 13 136/64 94 12/03/19 03:19 54 L 21 130/62 93 12/03/19 02:48 59 L 16 122/60 94 12/03/19 02:13 37.0 C 65 18 148/75 H 95 Laboratory Results 12/03/19 12/03/19 12/03/19 Range/Units 02:29 02:29 02:29 WBC 7.67 (4.8-10.8) K/uL RBC 4.52 (4.2-5.4) M/uL Hgb 13.4 (12.0-16.0) g/dL Hct 40.6 (37-47) % MCV 89.8 (80-100) fL MCH 29.6 (25-34) pg MCHC 33.0 (32-36) g/dL RDW Std Deviation 46.5 H (36.4-46.3) fL RDW Coeff of Geraldine 14.1 (11.5-14.5) % Plt Count 243 (130-400) K/uL MPV 9.4 (7.4-10.4) fL Immature Gran % (Auto) 0.1 % Neut % (Auto) 53.0 % Lymph % (Auto) 32.9 % Gaines % (Auto) 11.1 % Eos % (Auto) 2.5 % Baso % (Auto) 0.4 % Immature Gran # (Auto) 0.01 (0.00-0.02) K/uL Neut # (Auto) 4.07 (1.4-6.5) K/uL Lymph # (Auto) 2.52 (1.2-3.4) K/uL [place]aines # (Auto) 0.85 H (0.11-0.59) K/uL Eos # (Auto) 0.19 (0-0.5) K/uL Baso # (Auto) 0.03 (0-0.2) K/uL PT 10.8 (9.0-12.0) Seconds INR 1.0 (0.9-1.1) Sodium 139 (136-145) mmol/L Potassium 3.8 (3.5-5.1) mmol/L Chloride 110 H (98-107) mmol/L Carbon Dioxide 23 (21-32) mmol/L Anion Gap 6.0 (3-11) BUN 15 (7-18) mg/dl Creatinine 1.09 (0.6-1.2) mg/dl Est Cr Clr Drug Dosing 37.8 ml/min Est GFR ( Amer) 54.7 Est GFR (Non-Af Amer) 47.2 BUN/Creatinine Ratio 13.3 (10-20) Glucose 126 H (70-99) mg/dl Calcium 9.2 (8.5-10.1) mg/dl Magnesium 2.2 (1.8-2.4) mg/dl Troponin I < 0.015 (0-0.045) ng/ml Code Status & VTE Plan Code Status Conditional Code: no intubation, no mechanical ventilation Supervising Physician Co-Signing Physician Notes Attending addendum: I have physically seen this patient, have supervised the medical residents activities, and agree with the H&P unless as otherwise noted. Assessment and Plan: Atypical chest pain/nonspecific ST-T wave changes/hypertension/palpitations- The patient will be admitted to telemetry for serial cardiac enzymes, serial EKG's, cardiac rhythm monitoring and a 2-D echocardiogram with Dopplers. Aspirin 81 mg daily Nitroglycerin sublingual every 5 minutes as needed chest pain Continue metoprolol and diltiazem. Patient's follows with Dr. Varun Lucas from cardiology, and she would like him consult. Remainder of orders and notations as noted. Resident Activity Tracking Resident Involvement: Resident Care Provided Care Provided: Adult Hospital Medicine (1) Hypertension Hypertension type: essential hypertension Qualified Code(s): I10 - Essential (primary) hypertension
[2019-12-03] MEDS ORDERED: ONDANSETRON INJ 2 MG/ML 2 ML VIAL IV PRN (05:42)
--- NOTE | 2019-12-03 06:51 | XRay Report ---
XR chest 1V portable CLINICAL HISTORY: Atypical chest pain COMPARISON STUDY: 04/18/2019 FINDINGS: The heart is at the upper limits of normal in size. Underlying emphysema is suspected. Ther e is no focal pulmonary consolidation. There is no failure. There are no pleural effusions. There is no pneumothorax. There are old right-sided rib deformities.[ IMPRESSION: No active disease in the chest. ACT 112: Negative or not required by law. Electronically signed by: Drake Hahn M.D. 12/03/2019 6:49 AM
[2019-12-03] MEDS ORDERED: dilTIAZem HCL 120 MG CAPCR PO SCH (09:00)
[2019-12-03] MEDS ORDERED: CHOLECALCIFEROL 1,000 UNITS 25 MCG TAB PO SCH (09:30)
--- NOTE | 2019-12-03 13:19 | Cardiology Consultation ---
Date of Consultation December 03, 2019 Assessment & Plan (1) Left-sided chest pain: Her left-sided chest discomfort is very atypical for heart disease. She does have risk factors for coronary artery disease and could well have it, however I do not believe that her chest discomfort is due to myocardial ischemia. The episode lasted too long to have completely negative troponins and have it due to ischemia. A stress test may be misleading, I would not recommend stress testing which she has had on several occasions (2011 and 2015) and these were negative for ischemia with more typical sounding chest discomfort (based on her current recollection). I would not perform any further cardiac evaluation. (2) Abdominal aortic aneurysm: Her last abdominal CT scan on May 30, 2019 showed a 12 mm saccular aneurysm arising from the infrarenal abdominal aorta. This is reported as stable at that time. I do not think that would explain her current discomfort, although for completeness perhaps another CT scan would be reasonable since we do not have another good explanation for her chest discomfort. History of Present Illness Reason for Consultation: Left-sided chest pain Attending Physician: Neeta Joyce, History of Present Illness This is an 83-year-old woman who has a history of hypertension, hypercholesterolemia, and abdominal aortic aneurysm and longstanding chest discomfort. She has never seen a maxillofacial pathology although her sees Dr. Lucas in our office. She has had stress test done in 2011 and 2015, both of these were done for chest discomfort which she now describes now as being a midsternal location at those times. These tests were both negative for ischemia. She presents now with a different type of discomfort. She awoke at 11 PM on December 02, 2019 with a sharp localized left chest wall discomfort, she tells me it is lateral to her left breast. It did not change with breathing, I did not change with activity or motion of her upper body. She was not short of breath, she had no palpitations. She came into the emergency room where initial evaluation including cardiac enzymes, electrocardiography and x-ray studies were negative. Today she has a slight residual discomfort, she is consistent in telling me that the pain is not intermittent but has been there steadily since last evening and has gradually nearly resolved. She has developed no cardiovascular symptoms overnight. Allergies Allergy/AdvReac Type Severity Reaction Status Date / Time ibuprofen Allergy Intermediate ITCHY Verified 12/03/19 03:03 cephalexin [From Keflex] Allergy Unknown Unknown Verified 12/03/19 03:03 Cephalosporins Allergy Unknown SWELLING Verified 12/03/19 03:03 morphine Allergy Unknown Unknown Verified 12/03/19 03:03 Penicillins Allergy Unknown SWELLING Verified 12/03/19 03:03 zolpidem [From Ambien] Allergy Unknown Unknown Verified 12/03/19 03:03 baclofen Allergy Unknown Verified 12/03/19 05:49 ketorolac Allergy Unknown Verified 12/03/19 05:49 aspirin AdvReac Severe HEART Verified 12/03/19 05:49 RACES, INCREASES B/P meperidine AdvReac Severe HEART Verified 12/03/19 05:49 RACES, INCREASES B/P oxycodone AdvReac Severe HEART Verified 12/03/19 05:49 RACES, INCREASES B/P tramadol AdvReac Severe HEART Verified 12/03/19 05:49 RACES, INCREASES B/P codeine AdvReac Intermediate ITCHY Verified 12/03/19 03:03 hydrocodone AdvReac Intermediate ITCHY Verified 12/03/19 03:03 atorvastatin [From Lipitor] AdvReac Unknown Verified 12/03/19 05:49 pravastatin [From Pravachol] AdvReac Unknown Verified 12/03/19 05:49 Home Medications Home Medications Medication Instructions Recorded Confirmed Type cholecalciferol (vitamin D3) 1,000 unit PO QAM 05/24/18 12/03/19 History [Vitamin D3] latanoprost [Xalatan] 1 drp OPB HS 05/24/18 12/03/19 History melatonin 3 mg PO HS 05/24/18 12/03/19 History vit C 250 mg-E 200 unit-zinc 40 1 tab PO BID 03/18/19 12/03/19 History mg-copper 1 [id number] capsule acetaminophen [Tylenol Extra 500 mg PO Q6H PRN 04/10/19 12/03/19 History Strength] diltiazem HCl 120 mg See Rx Instructions PO HS 09/17/19 12/03/19 History capsule,extended release 24 hr metoprolol succinate 25 mg 25 mg PO HS #90 tab 11/27/19 12/03/19 Rx tablet,extended release 24 hr Patient History Medical History Abdominal aortic aneurysm (Chronic) Bilateral sensorineural hearing loss (Acute) Dyslipidemia (Acute) Gastroesophageal reflux disease (Acute) Glaucoma (Acute) Hip pain, right (Acute) History of polymyalgia rheumatica (Resolved) Hypercholesterolemia (Chronic) Hypertension (Chronic) Insomnia (Acute) Low back pain (Acute) Multiple rib fractures involving four or more ribs Osteopenia (Acute) Palpitations (Acute) Right hip tendonitis Trochanteric bursitis, right hip Vitamin D deficiency (Chronic) Surgical History S/P abdominal hysterectomy S/P appendectomy S/P colonoscopy S/P tonsillectomy and adenoidectomy Family History Mother Hypertension Stroke Other specified hearing loss, bilateral Father Other specified hearing loss, bilateral Cancer Cardiac disorder Social History Preferred Language: Lao Communication Ability: Effective Visual Impairment: No Limitations Hearing Ability: Use of Hearing Aid Senior 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 Required: No Beliefs That Will Affect Care: None marital status: Current Living Situation: Spouse current occupational status: retired Other Information That Helps Us Care for You: No Feels Safe at Home: Yes Smoking Status: Never smoker Hx Alcohol Use: No Hx Substance Use: No Childhood Exposure to Second-Hand Smoke: Yes caffeine: Yes Dental Care, Regularly: No Physical Activity Frequency: Does not Exercise Seatbelt Use: always Sunscreen Use: No Review of Systems Review of Systems: All systems reviewed & are unremarkable except as noted in HPI & below Physical Exam Physical Exam: Constitutional: Alert, cooperative and in no distress. HEENT: Unremarkable Neck: No jugular venous distention, carotid pulses are normal and equal bilaterally without bruits. Pulmonary: Clear to auscultation bilaterally. Cardiac: Regular rhythm with no murmur, gallop or rub. Abdomen: Soft, nontender with normal bowel sounds. Extremities: No edema. Distal pulses intact. Neurologic: No focal findings. Gait is steady. Skin: No rash, ecchymoses or petechiae. Results & Data ([facility]) Vital Signs (Past 12 Hours) Vital Signs Temp Pulse Pulse Resp BP BP Pulse Ox 12/03/19 11:40 37.0 C 56 L 20 142/67 H 96 04/08/20 07:30 59 L 12/03/19 06:30 36.7 C 61 17 141/64 H 95 12/03/19 06:26 60 12/03/19 05:43 36.7 C 57 L 18 157/53 H 97 12/03/19 05:00 57 L 18 139/75 95 12/03/19 04:30 55 L 15 154/67 H 96 12/03/19 04:01 54 L 16 145/68 H 96 12/03/19 03:30 56 L 13 136/64 94 12/03/19 03:19 54 L 21 130/62 93 12/03/19 02:48 59 L 16 122/60 94 12/03/19 02:13 37.0 C 65 18 148/75 H 95 Laboratory Results Cardiac Enzymes 12/03/19 12/03/19 Range/Units 02:29 08:17 Troponin I < 0.015 < 0.015 (0-0.045) ng/ml Coagulation 12/03/19 Range/Units 02:29 PT 10.8 (9.0-12.0) Seconds CBC 12/03/19 Range/Units 02:29 WBC 7.67 (4.8-10.8) K/uL RBC 4.52 (4.2-5.4) M/uL Hgb 13.4 (12.0-16.0) g/dL Hct 40.6 (37-47) % Plt Count 243 (130-400) K/uL Neut # (Auto) 4.07 (1.4-6.5) K/uL Lymph # (Auto) 2.52 (1.2-3.4) K/uL [place] # (Auto) 0.85 H (0.11-0.59) K/uL Eos # (Auto) 0.19 (0-0.5) K/uL Baso # (Auto) 0.03 (0-0.2) K/uL Comprehensive Metabolic Panel 12/03/19 Range/Units 02:29 Sodium 139 (136-145) mmol/L Potassium 3.8 (3.5-5.1) mmol/L Chloride 110 H (98-107) mmol/L Carbon Dioxide 23 (21-32) mmol/L BUN 15 (7-18) mg/dl Creatinine 1.09 (0.6-1.2) mg/dl Glucose 126 H (70-99) mg/dl Calcium 9.2 (8.5-10.1) mg/dl Intake and Output 12/02/19 12/03/19 12/03/19 22:59 06:59 14:59 Other: Weight 69.7 kg Diagnostic Findings Electrocardiogram: An electrocardiogram done on December 03, 2019 at 2:15 AM shows sinus rhythm at 62 bpm with some minor anterior ST-T abnormalities. This is quite similar to April 18, 2019, although those T wave abnormalities were not evident on May 24, 2018.. Telemetry: Sinus rhythm, no significant abnormality PG Care Time/CCT Total # of Minutes Spent Total Time Spent with Patient: Total time spent is greater than 50% in coordination of care (as documented) at patient's floor/unit and/or counseling patient: Coding Level of Care Code 50155 Initial Inpt Care Lvl 3 Diagnoses Left-sided chest pain R07.9 Abdominal aortic aneurysm I71.4
--- NOTE | 2019-12-03 15:01 | Discharge Summary ---
Date of Service December 03, 2019 Admission HPI Per Admitting Provider Osiris Castro is a 83 y/o F with PMH significant for HTN, palpitations, hypercholesteremia, and abdominal aortic aneurysm, presented to the ER for evaluation of left chest pain that started about 11pm, and gradually worsened throughout the night. She describes the pain as a dull crushing pain, without radiation that sits along her left breast line. Denies nausea, vomiting, shortness of breath, cough, fevers, chills, syncope, abdominal pain, dysuria, changes in urinary frequency or urgency, arm or leg swelling, or calf pain. Received ASA via EMS as well as sub-lingual nitroglycerin which decreased pain. She notes this caused mild headache which is now resolved. No previous CAD history though noted HTN, DLP; sees Dr. Lucas, and so she would like to be evaluated given her no previous cardiac disease. Principal Diagnosis Pt states her chest pain never fully resolved, but is now about 1/10. It is lateral to her L breast. She states it woke her up around 11:30p last night. She did have some mild SOB this AM when ambulated back from the bathroom, but she has since been OOB and no further SOB. Tolerating PO without issue. Pt denies fever, SOB, abd pain, n/v/c/d, LE pain or swelling. Discharge Exam Constitutional WD/WN, vitals as above Eyes normal visual prakash by confrontation and + anicteric sclerae Neck normal visual inspection and trachea midline Respiratory normal respiratory effort, lungs clear to auscultation Cardiovascular Rate/Rhythm: regular rate and regular rhythm Gastrointestinal (Abdomen) Inspection/Auscultation: abdomen not distended Percussion/Palpation: abdomen soft; abdomen nontender Musculoskeletal Head/Neck/Chest: normocephalic and head atraumatic Skin no rashes, warm and dry Neurologic awake; not confused Speech / Cognition: normal speech Psychiatric A+Ox3, euthymic affect Discharge Data Allergies Allergy/AdvReac Type Severity Reaction Status Date / Time ibuprofen Allergy Intermediate ITCHY Verified 12/03/19 03:03 cephalexin [From Keflex] Allergy Unknown Unknown Verified 12/03/19 03:03 Cephalosporins Allergy Unknown SWELLING Verified 12/03/19 03:03 morphine Allergy Unknown Unknown Verified 12/03/19 03:03 Penicillins Allergy Unknown SWELLING Verified 12/03/19 03:03 zolpidem [From Ambien] Allergy Unknown Unknown Verified 12/03/19 03:03 baclofen Allergy Unknown Verified 12/03/19 05:49 ketorolac Allergy Unknown Verified 12/03/19 05:49 aspirin AdvReac Severe HEART Verified 12/03/19 05:49 RACES, INCREASES B/P meperidine AdvReac Severe HEART Verified 12/03/19 05:49 RACES, INCREASES B/P oxycodone AdvReac Severe HEART Verified 12/03/19 05:49 RACES, INCREASES B/P tramadol AdvReac Severe HEART Verified 12/03/19 05:49 RACES, INCREASES B/P codeine AdvReac Intermediate ITCHY Verified 12/03/19 03:03 hydrocodone AdvReac Intermediate ITCHY Verified 12/03/19 03:03 atorvastatin [From Lipitor] AdvReac Unknown Verified 12/03/19 05:49 pravastatin [From Pravachol] AdvReac Unknown Verified 12/03/19 05:49 Consultations 12/03/19 03:15 ED Decision to Admit Stat 12/03/19 05:42 Consult Cardiology Routine Hospital Course (1) Left-sided chest pain: Improved to 1/10 by ASA and SL nitroglycerin, never fully resolved - negative troponin x3 - EKG with marginal T-wave flattening, no ST segment changes CXR: neg for acute Cardiology feels this is not cardiac in origin, hx of neg stress testing 2015 I discussed with pt at length that the cause of her chest pain is unclear at this time, but it is very unlikely cardiac in nature. We discussed CT chest as inpt now vs if pain returns she could return to the ED for further evaluation or call her PCP to see if further studies can be ordered as an outpatient. Pt preferred to hold on CT at this time I discussed with pt's daughter via phone as well, and she also agreed with this plan (2) Dyslipidemia: continue home meds (3) Hypertension: - continue home metoprolol and diltiazem (4) Abdominal aortic aneurysm: - 12mm saccular infrarenal aneurysm - last monitored on 05/30/19 (5) Palpitations: - continue home metoprolol and diltiazem Total Time Total Time Spent Total Time Spent (In Minutes): >30 Total Time Includes: Examination of the Patient, Discharge Planning, Medication Reconciliation, Communication With Other Providers and Other Discharge Plan Discharge Items Patient Disposition: Home - Self-Care Reason For Visit: chest pain Discharge Diagnosis: chest pain, NOS Activity: Resume your previous activity Non-emergency contact: Primary Care Provider Call non-emergency contact if: you have any medication questions, your pain is worsening and your pain is unusual for you Follow-up/Referrals: Pedro Ramesh, DO [Primary Care Provider] - Diet: Regular Addtl Attending Provider Instructions: The cause of your chest pain is unclear at this time, however given it is much improved and is very unlikely that it is your heart, it seems reasonable for you to go home at this time. As discussed, if your pain returns or becomes bothersome to you, you can come to the ED for further evaluation or call your PCP to see if further studies can be ordered as an outpatient. Please call if you have questions or concerns. Pending Studies at Discharge: No Stand-Alone Forms: [facility] Admittedly, Smoking Cessation Medications and DC Order Prescriptions: Continued metoprolol succinate [Toprol XL] 25 mg tablet extended release 24 hr 25 mg PO HS Qty: 90 RF: 3 PreserVision AREDS-2 [id number]-hgxx-bt-mg capsule 1 tab PO BID RF: 0 latanoprost [Xalatan] 0.005 % drops 1 drp OPB HS RF: 0 melatonin 3 mg Tablet 3 mg PO HS RF: 0 cholecalciferol (vitamin D3) [Vitamin D3] 1,000 unit Capsule 1,000 unit PO QAM RF: 0 diltiazem HCl 120 mg capsule,extended release 24hr See Rx Instructions PO HS RF: 0 acetaminophen [Tylenol Extra Strength] 500 mg Tablet 500 mg PO Q6H PRN (Reason: Pain) RF: 0 Discharge Orders: Discharge Order (Routine); Ordered 12/03/19 Ordered By: Neeta Joyce Admission Data Admit Date/Time: 12/03/19 04:51 Attending Provider: Neeta Joyce Admit Provider: Aldo Diego Primary Care Provider: Pedro Ramesh Other Providers: Ayo Wheeler Christophe R. Other Interventions: Discharge Summary Assessment (RN) Last Done: 12/03/19 14:29 Coding Level of Care Code D/C Day Management >30 mins Diagnoses Left-sided chest pain R07.9 Dyslipidemia E78.5 Hypertension I10 Hypertension type: essential hypertension Abdominal aortic aneurysm I71.4 Palpitations R00.2
[2019-12-03] MEDS ORDERED: dilTIAZem HCL 240 MG CAPCR PO SCH (21:00)
[2019-12-03] MEDS ORDERED: LATANOPROST 0.005% OP SOLN 2.5 ML BTL OPB SCH (21:00)
[2019-12-03] MEDS ORDERED: METOPROLOL SUCC 25MG EXT REL TAB PO SCH (21:00)
--- NOTE | 2019-12-03 23:03 | Billing Data ---
Date of Service December 03, 2019 Coding Level of Care Code 09311 OBS Care - Level 3
--- NOTE | 2019-12-04 10:24 | Electrocardiogram Report ---
Test Reason : Blood Pressure : / mmHG Vent. Rate : 062 BPM Atrial Rate : 062 BPM P-R Int : 192 ms QRS Dur : 084 ms QT Int : 424 ms P-R-T Axes : -21 -12 000 degrees QTc Int : 430 ms Normal sinus rhythm Nonspecific T wave abnormality Abnormal ECG When compared with ECG of 18-APR-2019 15:34, Nonspecific T wave abnormality now evident in Lateral leads Confirmed by Danie Adams ([id number]) on 12/04/2019 10:23:34 AM Referred By: REFERRED SELF Confirmed By:Danie Adams
== END 2019-12-03 16:11 | disposition home or self-care (01) ==
LOC: ED 02:06 → 2W 02:06 → SUATTDRO 04:51 → 2W 05:11

== ENCOUNTER 2021-10-18 21:26 | Inpatient (IN) ==
[2021-10-18] MEDS ORDERED: STAT IV Infusion **Titration per Protocol STA (21:38)
[2021-10-18] MEDS ORDERED: dilTIAZem HCl 5 MG/ML 5 ML VIAL IV STA (21:38)
[2021-10-18] MEDS ORDERED: dilTIAZem HCL 125 MG in DEXTROSE 5% 100 ML IV SCH (21:45)
[2021-10-18 22:10] LABS: Basophils # (auto) 0.03 K/uL (0-0.2); Basophils % (auto) 0.3 %; Eosinophils % (auto) 2.2 %; Hematocrit (blood only) 43.7 % (37-47); Hemoglobin 14.7 g/dL (12.0-16.0); Immature Granulocytes # (auto) 0.02 K/uL (0.00-0.02); Immature Granulocytes % (auto) 0.2 %; Lymphocytes # (auto) 3.32 K/uL (1.2-3.4); Lymphocytes % (auto) 37.3 %; Mean Corpuscular Hemoglobin 30.2 pg (25-34); Mean Corpuscular Hgb Conc 33.6 g/dL (32-36); Mean Corpuscular Volume 89.9 fL (80-100); Mean Platelet Volume 9.8 fL (7.4-10.4); Monocytes # (auto) 1.17 K/uL (0.11-0.59); Monocytes % (auto) 13.1 %; Neutrophils # (auto) 4.17 K/uL (1.4-6.5); Neutrophils % (auto) 46.9 %; Platelet Count 255 K/uL (130-400); RDW Coefficient of Variation 14.1 % (11.5-14.5); RDW Standard Deviation 46.7 fL (36.4-46.3); Red Blood Count 4.86 M/uL (4.2-5.4); White Blood Count 8.91 K/uL (4.8-10.8)
[2021-10-18 22:21] LABS: Partial Thromboplastin Ratio 0.9; Prothrombin Time 9.7 Seconds (9.0-12.0)
--- NOTE | 2021-10-18 22:21 | Emergency Department Note ---
Impression & Plan Atrial fibrillation with rapid ventricular response, Hypertension, Chest pressure ED Provider Note Provider: Murali Khan MD DATE OF SERVICE: 10/18/2021 CHIEF COMPLAINT: Chest pressure, palpitations HISTORY OF PRESENT ILLNESS: Patient is a 85-year-old female history of AAA, hypertension, and GERD presenting the ambulance today after developing around 7:30 PM some chest pressure and palpitations. Found by EMS to be in a rapid heart rate narrow complex tachycardia. Received 6 mg and 12 mg of adenosine with transient episodes of resumption of a slower heart rate by report. Received 10 mg of Cardizem IV prior to arrival with mild improvement of heart rate from the 160s into the 120s. Patient denies any chest pain or pressure upon arrival. Denies shortness of breath today. Denies any faintness or falling today. Patient states she been taking her medications as prescribed. Denies a history of A. fib or cardiac arrhythmia. No history of bleeding reported. Patient was given full dose aspirin prior to arrival. REVIEW OF SYSTEMS: A total of 10 review of systems was obtained and negative except as stated above in the HPI. PAST MEDICAL HISTORY: As noted above MEDICATIONS: Reviewed home medications SOCIAL HISTORY: Lives at home, PHYSICAL EXAM: GENERAL: alert and oriented in no acute distress on stretcher Head: normocephalic and atraumatic EYES: No injection, discharge or icterus. NECK: Trachea midline. ENT: Mucous membranes pink and moist. LUNGS: Airway patent. No retractions. Breath sounds clear with good air entry bilaterally. HEART: Regular tachycardic rate and rhythm. No chest wall tenderness ABDOMEN: Soft and non-tender, without guarding or rebound. SKIN: Acyanotic, warm, dry, without rashes EXTREMITIES: Bilateral trace pedal edema. No tenderness of the bilateral calves. NEUROLOGICAL: No focal deficits. No aphasia. No facial droop or slurred speech. EK bpm atrial fibrillation with rapid ventricular response no acute ST segment elevation with nonspecific T wave changes. QTc 456. Normal axis. CONTINUOUS CARDIAC MONITORING: was ordered and showed a heart rate of 80s-160s bpm in atrial fibrillation 1 view chest x-ray per my interpretation: Very slight effusion of the left base but no evident significant pneumonia, pneumothorax, or pulmonary edema. Patient's laboratory studies and imaging reviewed. Differential includes Cardiac ischemia, aortic dissection, pulmonary embolism, pneumothorax, pneumonia, pericarditis, myocarditis, esophageal rupture, GERD, cholecystitis, pancreatitis, musculoskeletal, as well as other pathologies. IMPRESSION/MEDICAL DECISION MAKING: Patient denies chest pain or pressure or abdominal pain at this time. Hypertensive. Noted to be in what appears to be rapid A. fib. Some improvement prior to arrival after some Cardizem. Cardizem drip and bolus ordered here. Patient did have improvement of heart rate with this. Patient again denies chest pain is not hypoxic upon arrival. Chest x-ray per my interpretation without evidence of significant fluid overload or pneumonia. No significant anemia or leukocytosis noted on blood work. Troponin is undetectably low. Question if the pain was related to a rapid heart rate earlier. No history of A. fib and new onset. Discussed with patient daughter at bedside discussed institution of heparin drip for anticoagulation given this. Blood pressure did improve some with this although still not optimal. Benign abdomen I doubt this represents dissection at this time. TSH and electrolytes were sent. No severe abnormalities noted. Discuss further care here at the hospital and cardiac evaluation. Hospitalist contacted. Daughter at bedside and updated. DIAGNOSIS: New rapid atrial fibrillation, chest pressure, hypertension DISPOSITION: Hospitalist will evaluate Patient was agreeable with this plan. Critical Care I have personally spent 32 minutes of critical care time in the direct managemen t of this patient. This includes bedside care, interpretation of diagnostic studies, and testing, discussion with consultants, patient, and family members, and other required patient management activities. These 32 minutes is in excess of all separately billable procedures. Past Med/Surg History Medical History (Updated 10/18/21 @ 23:59 by Daria Lopez DO) Abdominal aortic aneurysm Bilateral sensorineural hearing loss Dyslipidemia Gastroesophageal reflux disease Glaucoma History of polymyalgia rheumatica Hypertension Insomnia Low back pain Multiple rib fractures involving four or more ribs Osteopenia Pleural effusion Right hip tendonitis Trochanteric bursitis, right hip Vitamin D deficiency Surgical History H/O lateral meniscus repair of right knee S/P abdominal hysterectomy S/P appendectomy S/P colonoscopy S/P tonsillectomy and adenoidectomy Family History Mother Hypertension Stroke Other specified hearing loss, bilateral Father Other specified hearing loss, bilateral Cancer Cardiac disorder Myocardial infarction Daughter Breast cancer Sister Myocardial infarction Denies family history of Ovarian cancer Prostate cancer Colorectal cancer Social History Smoking Status: Never smoker Second Hand Exposure: No; Hx Alcohol Use: No Hx Substance Use: No Preferred Language: Singaporean Communication Ability: Effective Visual Impairment: Limited Hearing Ability: Use of Hearing Aid Hydrogen Plant Operator Required: No Beliefs That Will Affect Care: None marital status: Current Living Situation: Spouse current occupational status: retired How many Children do You have: 1 Feels Safe at Home: Yes Childhood Exposure to Second-Hand Smoke: Yes caffeine: Yes Dental Care, Regularly: No Physical Activity Frequency: Does not Exercise Seatbelt Use: always Sunscreen Use: Yes Do you think of yourself as: straight/heterosexual Assistive Devices: Glasses and Hearing Aid - Bilateral Allergies Allergies Allergy/AdvReac Type Severity Reaction Status Date / Time ibuprofen Allergy Intermediate ITCHY Verified 10/18/21 22:42 cephalexin [From Keflex] Allergy Unknown Unknown Verified 10/18/21 22:42 Cephalosporins Allergy Unknown SWELLING Verified 10/18/21 22:42 morphine Allergy Unknown Unknown Verified 10/18/21 22:42 Penicillins Allergy Unknown SWELLING Verified 10/18/21 22:42 zolpidem [From Ambien] Allergy Unknown Unknown Verified 10/18/21 22:42 baclofen Allergy Unknown Verified 10/18/21 22:42 ketorolac Allergy Unknown Verified 10/18/21 22:42 sulfamethoxazole Allergy rash Verified 10/18/21 22:42 [From Bactrim] trimethoprim [From Bactrim] Allergy rash Verified 10/18/21 22:42 aspirin AdvReac Severe HEART Verified 10/18/21 22:42 RACES, INCREASES B/P meperidine AdvReac Severe HEART Verified 10/18/21 22:42 RACES, INCREASES B/P oxycodone AdvReac Severe HEART Verified 10/18/21 22:42 RACES, INCREASES B/P tramadol AdvReac Severe HEART Verified 10/18/21 22:42 RACES, INCREASES B/P codeine AdvReac Intermediate ITCHY Verified 10/18/21 22:42 hydrocodone AdvReac Intermediate ITCHY Verified 10/18/21 22:42 atorvastatin [From Lipitor] AdvReac Unknown Verified 10/18/21 22:42 pravastatin [From Pravachol] AdvReac Unknown Verified 10/18/21 22:42 Home Meds Home Medications Medication Instructions Recorded Confirmed latanoprost 0.005 % eye drops 1 drp OPB HS 05/24/18 10/18/21 (Xalatan) melatonin 3 mg tablet 3 mg PO HS 05/24/18 10/18/21 vit C 250 mg-vit E 90 mg-zinc 40 1 tab PO BID 03/18/19 10/18/21 mg-copper 1 [id number] capsule (PreserVision AREDS-2) acetaminophen 500 mg tablet 500 mg PO Q6H PRN 04/10/19 10/18/21 (Tylenol Extra Strength) cholecalciferol (vitamin D3) 25 2,000 units PO QAM cap 12/26/19 10/18/21 mcg (1,000 unit) capsule (Vitamin D3) aspirin 81 mg tablet,delayed 324 mg PO .TODAY 10/18/21 10/18/21 release betamethasone dipropionate 0.05 % 1 applic TOPICAL BID PRN 10/18/21 10/18/21 lotion ketoconazole 2 % shampoo 1 applic TOPICAL 2XWK 10/18/21 10/18/21 Previous Rx's Medication Instructions Recorded metoprolol succinate 25 mg 25 mg PO HS #90 tab 12/06/20 tablet,extended release 24 hr (Toprol XL) diltiazem HCl 120 mg See Rx Instructions PO DAILY 90 08/09/21 capsule,extended release 24 hr Days #270 cap Results & Data (ED) Vital Signs Vital Signs - 24 hr 10/18/21 21:38 10/18/21 22:00 10/18/21 22:30 Temperature 36.9 C Temperature Source Oral Pulse Rate 147 H 149 H 97 H Pulse Rhythm Regular Pulse Strength Normal Respiratory Rate 18 17 17 Respiratory Effort / Characteristics Non-Labored Respiratory Depth Normal Respiratory Pattern Regular Blood Pressure 195/129 H 179/108 H 164/132 H Blood Pressure Mean 151 131 142 Pulse Oximetry 96 97 95 Oxygen Delivery Method Room Air Room Air Room Air Sepsis Recent Fever Within 48 Hours No Sepsis New/Unexplained Change in Mental Status No Sepsis Action Taken by Nursing No Action Required 10/18/21 22:53 10/18/21 23:00 Temperature Temperature Source Pulse Rate 138 H 122 H Pulse Rhythm Pulse Strength Respiratory Rate 23 29 H Respiratory Effort / Characteristics Respiratory Depth Respiratory Pattern Blood Pressure 161/109 H 172/93 H Blood Pressure Mean 126 119 Pulse Oximetry 95 95 Oxygen Delivery Method Room Air Room Air Sepsis Recent Fever Within 48 Hours Sepsis New/Unexplained Change in Mental Status Sepsis Action Taken by Nursing Laboratory Data Result diagrams: 10/18/21 21:50 10/18/21 21:50 Lab Results 10/18/21 10/18/21 10/18/21 Range/Units 21:50 21:50 21:50 WBC 8.91 (4.8-10.8) K/uL RBC 4.86 (4.2-5.4) M/uL Hgb 14.7 (12.0-16.0) g/dL Hct 43.7 (37-47) % MCV 89.9 (80-100) fL MCH 30.2 (25-34) pg MCHC 33.6 (32-36) g/dL RDW Std Deviation 46.7 H (36.4-46.3) fL RDW Coeff of Geraldine 14.1 (11.5-14.5) % Plt Count 255 (130-400) K/uL MPV 9.8 (7.4-10.4) fL Immature Gran % (Auto) 0.2 % Neut % (Auto) 46.9 % Lymph % (Auto) 37.3 % [place] % (Auto) 13.1 % Eos % (Auto) 2.2 % Baso % (Auto) 0.3 % Neut # (Auto) 4.17 (1.4-6.5) K/uL Lymph # (Auto) 3.32 (1.2-3.4) K/uL [place] # (Auto) 1.17 H (0.11-0.59) K/uL Eos # (Auto) 0.20 (0-0.5) K/uL Baso # (Auto) 0.03 (0-0.2) K/uL Immature Gran # (Auto) 0.02 (0.00-0.02) K/uL PT 9.7 (9.0-12.0) Seconds INR 1.0 (0.9-1.1) APTT 24.0 (21.0-31.0) Seconds PTT Ratio 0.9 Sodium 139 (136-145) mmol/L Potassium 3.6 (3.5-5.1) mmol/L Chloride 106 (98-107) mmol/L Carbon Dioxide 21 (21-32) mmol/L Anion Gap 12 H (3-11) BUN 18 (6-23) mg/dl Creatinine 0.86 (0.6-1.2) mg/dl Est Cr Clr Drug Dosing 48.3 ml/min Est GFR ( Amer) 71.9 ml/min Est GFR (Non-Af Amer) 62.0 ml/min BUN/Creatinine Ratio 20.9 H (10-20) Glucose 113 H (70-99(Fasting)) mg/dl Calcium 9.4 (8.5-10.1) mg/dl Magnesium 2.0 (1.7-2.4) mg/dl Total Bilirubin 0.6 (0.2-1.0) mg/dl AST 16 (13-39) U/L ALT 18 (7-52) U/L Alkaline Phosphatase 67 (34-104) U/L Troponin I < 0.03 (0-0.04) ng/ml Total Protein 6.5 (6.0-8.3) gm/dl Albumin 4.0 (3.4-5.0) gm/dl Globulin 2.5 (2.5-4.0) gm/dl Albumin/Globulin Ratio 1.6 (0.9-2) Lipase 41 (11-82) U/L TSH (0.300-4.500) uIu/ml Free T4 (0.61-1.60) ng/dl SARS-CoV-2, RNA, NAAT (NEGATIVE) 10/18/21 10/18/21 Range/Units 21:50 23:01 WBC (4.8-10.8) K/uL RBC (4.2-5.4) M/uL Hgb (12.0-16.0) g/dL Hct (37-47) % MCV (80-100) fL MCH (25-34) pg MCHC (32-36) g/dL RDW Std Deviation (36.4-46.3) fL RDW Coeff of Geraldine (11.5-14.5) % Plt Count (130-400) K/uL MPV (7.4-10.4) fL Immature Gran % (Auto) % Neut % (Auto) % Lymph % (Auto) % [place] % (Auto) % Eos % (Auto) % Baso % (Auto) % Neut # (Auto) (1.4-6.5) K/uL Lymph # (Auto) (1.2-3.4) K/uL [place] # (Auto) (0.11-0.59) K/uL Eos # (Auto) (0-0.5) K/uL Baso # (Auto) (0-0.2) K/uL Immature Gran # (Auto) (0.00-0.02) K/uL PT (9.0-12.0) Seconds INR (0.9-1.1) APTT (21.0-31.0) Seconds PTT Ratio Sodium (136-145) mmol/L Potassium (3.5-5.1) mmol/L Chloride (98-107) mmol/L Carbon Dioxide (21-32) mmol/L Anion Gap (3-11) BUN (6-23) mg/dl Creatinine (0.6-1.2) mg/dl Est Cr Clr Drug Dosing ml/min Est GFR ( Amer) ml/min Est GFR (Non-Af Amer) ml/min BUN/Creatinine Ratio (10-20) Glucose (70-99(Fasting)) mg/dl Calcium (8.5-10.1) mg/dl Magnesium (1.7-2.4) mg/dl Total Bilirubin (0.2-1.0) mg/dl AST (13-39) U/L ALT (7-52) U/L Alkaline Phosphatase (34-104) U/L Troponin I (0-0.04) ng/ml Total Protein (6.0-8.3) gm/dl Albumin (3.4-5.0) gm/dl Globulin (2.5-4.0) gm/dl Albumin/Globulin Ratio (0.9-2) Lipase (11-82) U/L TSH 5.715 H (0.300-4.500) uIu/ml Free T4 0.94 (0.61-1.60) ng/dl SARS-CoV-2, RNA, NAAT NEGATIVE (NEGATIVE) Administered Medications Diltiazem HCl 125 mg/ Dextrose 125 mls @ 10 mls/hr IV .[id number] [facility]; Protocol Stop: 11/17/21 21:44 Last Titration: 10/18/21 22:54 Dose: 10 mg/hr, 10 mls/hr Documented by: [id number] Cosigned by: [id number] Admin: 10/18/21 22:11 Dose: 5 mg/hr, 5 mls/hr Documented by: [id number] Cosigned by: [id number] Discontinued Medications Diltiazem HCl (Diltiazem Hcl 5 Mg/Ml 5 Ml Vial) 10 mg IV NOW STA Stop: 10/18/21 21:39 Last Admin: 10/18/21 22:11 Dose: 10 mg Documented by: [id number] Cosigned by: [id number] Discharge Plan Visit Data Chief Complaint: Chest Pain Stated Complaint: chest pain ED Provider: Murali Khan Discharge Problem: Atrial fibrillation with rapid ventricular response, Hypertension, Chest pressure Patient Disposition: Being Evaluated by Hospitalist Forms Stand Alone Forms: [facility] Prescriptions Prescriptions: No Action metoprolol succinate [Toprol XL] 25 mg tablet extended release 24 hr 25 mg PO HS Qty: 90 RF: 3 diltiazem HCl 120 mg capsule,extended release 24hr See Rx Instructions PO DAILY 90 Days Qty: 270 RF: 3 betamethasone acet,sod phos 6 mg/mL suspension 12 mg intra-articular ONCE Qty: 2 RF: 0 PreserVision AREDS-2 [id number] cx-[id number]-mg capsule 1 tab PO BID RF: 0 latanoprost [Xalatan] 0.005 % drops 1 drp OPB HS RF: 0 melatonin 3 mg Tablet 3 mg PO HS RF: 0 cholecalciferol (vitamin D3) [Vitamin D3] 25 mcg (1,000 unit) capsule 2,000 units PO QAM RF: 0 acetaminophen [Tylenol Extra Strength] 500 mg Tablet 500 mg PO Q6H PRN (Reason: Pain) RF: 0 aspirin [Aspir-Low] 81 mg Tablet,Delayed Release (Dr/Ec) 324 mg PO .TODAY RF: 0 ketoconazole 2 % shampoo 1 applic TOPICAL 2XWK RF: 0 betamethasone dipropionate 0.05 % lotion 1 applic TOPICAL BID PRN (Reason: .AFFECTED AREA) RF: 0 Referrals Referrals: Pedro Ramesh DO [Primary Care Provider] - Discharge Problem: Hypertension Qualifiers: Hypertension type: unspecified Qualified Code(s): I10 - Essential (primary) hypertension
[2021-10-18 22:46] LABS: Troponin I < 0.03 ng/ml (0-0.04)
[2021-10-18 22:59] LABS: Thyroid Stimulating Hormone 5.715 uIu/ml (0.300-4.500)
[2021-10-18] MEDS ORDERED: MAGNESIUM SULFATE / D5W 1 GM/100 ML BAG IV STA (23:15)
[2021-10-18] MEDS ORDERED: Heparin IV Adult Wt-Based Low-Dose WITH Bolus Protocol IV STA (23:16)
[2021-10-18 23:31] LABS: Alanine Aminotransferase 18 U/L (7-52); Albumin Globulin Ratio 1.6 (0.9-2); Alkaline Phosphatase 67 U/L (34-104); Anion Gap 12 (3-11); Aspartate Aminotransferase 16 U/L (13-39); BUN Creatinine Ratio 20.9 (10-20); Bilirubin,Total 0.6 mg/dl (0.2-1.0); Blood Urea Nitrogen 18 mg/dl (6-23); Calcium 9.4 mg/dl (8.5-10.1); Carbon Dioxide 21 mmol/L (21-32); Chloride 106 mmol/L (98-107); Creatinine Clr Calc Pharmacy 48.3 ml/min; Est GFR (African American) 71.9 ml/min; Globulin 2.5 gm/dl (2.5-4.0); Glucose 113 mg/dl (70-99(Fasting)); Lipase 41 U/L (11-82); Potassium 3.6 mmol/L (3.5-5.1); Sodium 139 mmol/L (136-145); Total Protein 6.5 gm/dl (6.0-8.3)
[2021-10-18] MEDS ORDERED: HEPARIN SOD (PORCINE) 1000 UNIT/ML IV ONE (23:31)
[2021-10-18 23:33] LABS: T4 Free Thyroxine 0.94 ng/dl (0.61-1.60)
[2021-10-18] MEDS ORDERED: HEPARIN SODIUM/DEXTROSE 25,000 UNITS/500 ML BAG IV SCH (23:45)
--- NOTE | 2021-10-19 00:09 | History & Physical Report ---
Date of Service October 18, 2021 Assessment & Plan (1) Atrial fibrillation with rapid ventricular response: Plan: Patient with new atrial fibrillation. HD stable. HR has improved with Cardizem bolus and gtt initiated in ER. She denies chest pain, SOB, dizziness. No focal neurological findings. No evidence of heart failure. TSH elevated with normal T4. Electrolytes WNL. Troponin is negative. No acute ischemic findings on EKG - some nonspecific ST changes, possibly rate related. -Admit to PCU -Continue Diltiazem gtt per protocol. Goal HR <110bpm -Continue Heparin gtt for anticoagulation. Patient with [id number] score of 4 (age, gender, h/o HTN). Would benefit from anticoagulation for primary stroke prevention -Check 2D echo (2) Hypertension: Plan: Blood pressure elevated. Presently 172/93. No CP/SINGH/SOB. -Continue Diltiazem and Metoprolol. Uncertain why patient is on Cardizem extended release BID - seems to have changed in Jul 2021. Would try daily dosing of Diltiazem if tolerated -Continue to monitor (3) Abdominal aortic aneurysm: Plan: Patient with abdominal aortic aneurysm being followed with serial CT. Last performed on 06/08/20 revealing 1.4cm saccular aneurysm of the distal abdominal aorta which was essentially unchanged from prior study 05/30/19. Patient is to have routine scan in 1 year. -Continue routine outpatient monitoring (4) Dyslipidemia: Plan: Patient with elevated lipids. Last on 04/28/21 with TG of 300, Chol of 226. Allergic to statin medications. Per PCP note 04/29/21, patient is not interested in starting Zetia -Continue dietary modification Plan: F/E/N - [place]. Electrolytes WNL. Heart healthy diet as tolerated Ppx - Heparin gtt for AF as above Code - Full per discussion with patient, daughter at bedside as well Dispo - Admit to PCU History of Present Illness Chief Complaint: palpitations Primary Care Provider: DO Nimo Addisonandrea Castro is a pleasant 85yo female with history of AAA on surveillance, HTN, HLP and GERD presenting with acute onset of palpitations and racing heart. Patient was in her usual state of health today. She was getting some mild from the refrigerator around 19:30 when she had acute onset of racing heart, palpitations and some SOB. She denies chest pain, cough, dizziness or syncope. Denies worsening edema, orthopnea or weight gain. No additional complaints at this time. Patient took ASA 324mg prior to arrival. Upon arrival she was found to be in atrial fibrillation. Initially she was rate controlled, however, after ambulation to the bathroom her HR increased. She was administered Diltiazem bolus and started on a diltiazem infusion for rate control. Patient presently reports feeling improved. She denies chest pain, palpitations, dizziness or SOB at this time. She has no prior diagnosis of arrhythmia or atrial fibrillation. She does report having this sensation of rapid heart rate and palpitations in the past, however. She reports feeling this way at least yearly for the last 5-6 years. She states when she has palpitations they may last only briefly or may be constant for several days. She has had testing in the past to include stress testing, EKG, echo and Holter monitoring with no definitive diagnosis. She is active and independent. She resides in a house with her . Walks frequently without use of a cane or walker. No recent falls. ER Course: Diltiazem 10mg IV, Diltiazem infusion - presently at 10mg/hr, Heparin gtt ordered - not yet started Allergies Allergy/AdvReac Type Severity Reaction Status Date / Time ibuprofen Allergy Intermediate ITCHY Verified 10/18/21 22:42 cephalexin [From Keflex] Allergy Unknown Unknown Verified 10/18/21 22:42 Cephalosporins Allergy Unknown SWELLING Verified 10/18/21 22:42 morphine Allergy Unknown Unknown Verified 10/18/21 22:42 Penicillins Allergy Unknown SWELLING Verified 10/18/21 22:42 zolpidem [From Ambien] Allergy Unknown Unknown Verified 10/18/21 22:42 baclofen Allergy Unknown Verified 10/18/21 22:42 ketorolac Allergy Unknown Verified 10/18/21 22:42 sulfamethoxazole Allergy rash Verified 10/18/21 22:42 [From Bactrim] trimethoprim [From Bactrim] Allergy rash Verified 10/18/21 22:42 aspirin AdvReac Severe HEART Verified 10/18/21 22:42 RACES, INCREASES B/P meperidine AdvReac Severe HEART Verified 10/18/21 22:42 RACES, INCREASES B/P oxycodone AdvReac Severe HEART Verified 10/18/21 22:42 RACES, INCREASES B/P tramadol AdvReac Severe HEART Verified 10/18/21 22:42 RACES, INCREASES B/P codeine AdvReac Intermediate ITCHY Verified 10/18/21 22:42 hydrocodone AdvReac Intermediate ITCHY Verified 10/18/21 22:42 atorvastatin [From Lipitor] AdvReac Unknown Verified 10/18/21 22:42 pravastatin [From Pravachol] AdvReac Unknown Verified 10/18/21 22:42 Home Medications Medication Instructions Recorded Confirmed Type latanoprost 0.005 % eye drops 1 drp OPB HS 05/24/18 10/18/21 History (Xalatan) melatonin 3 mg tablet 3 mg PO HS 05/24/18 10/18/21 History vit C 250 mg-vit E 90 mg-zinc 40 1 tab PO BID 03/18/19 10/18/21 History mg-copper 1 [id number] capsule (PreserVision AREDS-2) acetaminophen 500 mg tablet 500 mg PO Q6H PRN 04/10/19 10/18/21 History (Tylenol Extra Strength) cholecalciferol (vitamin D3) 25 2,000 units PO QAM cap 12/26/19 10/18/21 History mcg (1,000 unit) capsule (Vitamin D3) metoprolol succinate 25 mg 25 mg PO HS #90 tab 12/06/20 10/18/21 Rx tablet,extended release 24 hr (Toprol XL) diltiazem HCl 120 mg See Rx Instructions PO DAILY 90 08/09/21 10/18/21 Rx capsule,extended release 24 hr Days #270 cap aspirin 81 mg tablet,delayed 324 mg PO .TODAY 10/18/21 10/18/21 History release betamethasone dipropionate 0.05 % 1 applic TOPICAL BID PRN 10/18/21 10/18/21 History lotion ketoconazole 2 % shampoo 1 applic TOPICAL 2XWK 10/18/21 10/18/21 History Past Med/Surg History Medical History (Updated 10/18/21 @ 23:59 by Daria Lopez DO) Abdominal aortic aneurysm Bilateral sensorineural hearing loss Dyslipidemia Gastroesophageal reflux disease Glaucoma History of polymyalgia rheumatica Hypertension Insomnia Low back pain Multiple rib fractures involving four or more ribs Osteopenia Pleural effusion Right hip tendonitis Trochanteric bursitis, right hip Vitamin D deficiency Surgical History H/O lateral meniscus repair of right knee S/P abdominal hysterectomy S/P appendectomy S/P colonoscopy S/P tonsillectomy and adenoidectomy Family History Mother Hypertension Stroke Other specified hearing loss, bilateral Father Other specified hearing loss, bilateral Cancer Cardiac disorder Myocardial infarction Daughter Breast cancer Sister Myocardial infarction Denies family history of Ovarian cancer Prostate cancer Colorectal cancer Social History Smoking Status: Never smoker Second Hand Exposure: No; Hx Alcohol Use: No Hx Substance Use: No Preferred Language: Tajik Communication Ability: Effective Visual Impairment: Limited Hearing Ability: Use of Hearing Aid Manager Bar Required: No Beliefs That Will Affect Care: None marital status: Current Living Situation: Spouse current occupational status: retired How many Children do You have: 1 Feels Safe at Home: Yes Childhood Exposure to Second-Hand Smoke: Yes caffeine: Yes Dental Care, Regularly: No Physical Activity Frequency: Does not Exercise Seatbelt Use: always Sunscreen Use: Yes Do you think of yourself as: straight/heterosexual Assistive Devices: Glasses and Hearing Aid - Bilateral Review of Systems Review of Systems: All systems reviewed & are unremarkable except as noted in HPI & below Physical Exam Physical Exam: General: patient resting comfortably, NAD, non-toxic in appearance, AA&O x 4 Skin: warm, dry, intact, no rashes or lesions HEENT: NC/AT, PERRL, EOMI, anicteric sclera, conjunctiva without injection, external ear normal to inspection and nontender, nares patent, moist mucus membranes, dentition intact, no oropharyngeal lesions, neck supple, trachea midline, no LAD, no thyromegaly, no JVD Heart: +S1/S2, irregularly irregular, no m/r/g Lungs: equal air entry bilaterally, no rales/rhonchi/wheezes Abd: +BS, soft, NT/ND, no masses/organomegaly/ascites Ext: warm, 2+ pulses in UE/LE bilaterally, no clubbing/cyanosis, 1+ pitting edema of bilateral LE Neuro: nonfocal, patient AA&O x 4, speech intact, no facial droop, moving all extremities on command with equal strength 5/5 Results & Data Results & Data ([facility]) Vital Signs (Past 12 Hours) Vital Signs Temp Pulse Resp BP Pulse Ox 10/18/21 23:00 122 H 29 H 172/93 H 95 10/18/21 22:53 138 H 23 161/109 H 95 10/18/21 22:30 97 H 17 164/132 H 95 10/18/21 22:00 149 H 17 179/108 H 97 10/18/21 21:38 36.9 C 147 H 18 195/129 H 96 Laboratory Results Laboratory Results WBC 8.91 K/uL (4.8-10.8) 10/18/21 21:50 RBC 4.86 M/uL (4.2-5.4) 10/18/21 21:50 Hgb 14.7 g/dL (12.0-16.0) 10/18/21 21:50 Hct 43.7 % (37-47) 10/18/21 21:50 MCV 89.9 fL (80-100) 10/18/21 21:50 MCH 30.2 pg (25-34) 10/18/21 21:50 MCHC 33.6 g/dL (32-36) 10/18/21 21:50 RDW Std Deviation 46.7 fL (36.4-46.3) H 10/18/21 21:50 RDW Coeff of Geraldine 14.1 % (11.5-14.5) 10/18/21 21:50 Plt Count 255 K/uL (130-400) 10/18/21 21:50 MPV 9.8 fL (7.4-10.4) 10/18/21 21:50 Immature Gran % (Auto) 0.2 % 10/18/21 21:50 Neut % (Auto) 46.9 % 10/18/21 21:50 Lymph % (Auto) 37.3 % 10/18/21 21:50 Adams % (Auto) 13.1 % 10/18/21 21:50 Eos % (Auto) 2.2 % 10/18/21 21:50 Baso % (Auto) 0.3 % 10/18/21 21:50 Neut # (Auto) 4.17 K/uL (1.4-6.5) 10/18/21 21:50 Lymph # (Auto) 3.32 K/uL (1.2-3.4) 10/18/21 21:50 Adams # (Auto) 1.17 K/uL (0.11-0.59) H 10/18/21 21:50 Eos # (Auto) 0.20 K/uL (0-0.5) 10/18/21 21:50 Baso # (Auto) 0.03 K/uL (0-0.2) 10/18/21 21:50 Immature Gran # (Auto) 0.02 K/uL (0.00-0.02) 10/18/21 21:50 PT 9.7 Seconds (9.0-12.0) 10/18/21 21:50 INR 1.0 (0.9-1.1) 10/18/21 21:50 APTT 24.0 Seconds (21.0-31.0) 10/18/21 21:50 PTT Ratio 0.9 10/18/21 21:50 Sodium 139 mmol/L (136-145) 10/18/21 21:50 Potassium 3.6 mmol/L (3.5-5.1) 10/18/21 21:50 Chloride 106 mmol/L (98-107) 10/18/21 21:50 Carbon Dioxide 21 mmol/L (21-32) 10/18/21 21:50 Anion Gap 12 (3-11) H 10/18/21 21:50 BUN 18 mg/dl (6-23) 10/18/21 21:50 Creatinine 0.86 mg/dl (0.6-1.2) 10/18/21 21:50 Est Cr Clr Drug Dosing 48.3 ml/min 10/18/21 21:50 Est GFR ( Amer) 71.9 ml/min 10/18/21 21:50 Est GFR (Non-Af Amer) 62.0 ml/min 10/18/21 21:50 BUN/Creatinine Ratio 20.9 (10-20) H 10/18/21 21:50 Glucose 113 mg/dl (70-99(Fasting)) H 10/18/21 21:50 Calcium 9.4 mg/dl (8.5-10.1) 10/18/21 21:50 Magnesium 2.0 mg/dl (1.7-2.4) 10/18/21 21:50 Total Bilirubin 0.6 mg/dl (0.2-1.0) 10/18/21 21:50 AST 16 U/L (13-39) 10/18/21 21:50 ALT 18 U/L (7-52) 10/18/21 21:50 Alkaline Phosphatase 67 U/L (34-104) 10/18/21 21:50 Troponin I < 0.03 ng/ml (0-0.04) 10/18/21 21:50 Total Protein 6.5 gm/dl (6.0-8.3) 10/18/21 21:50 Albumin 4.0 gm/dl (3.4-5.0) 10/18/21 21:50 Globulin 2.5 gm/dl (2.5-4.0) 10/18/21 21:50 Albumin/Globulin Ratio 1.6 (0.9-2) 10/18/21 21:50 Lipase 41 U/L (11-82) 10/18/21 21:50 TSH 5.715 uIu/ml (0.300-4.500) H 10/18/21 21:50 Free T4 0.94 ng/dl (0.61-1.60) 10/18/21 21:50 SARS-CoV-2, RNA, NAAT NEGATIVE (NEGATIVE) 10/18/21 23:01 ECG Additional Comments: EKG with AF, rate of 127, normal axis, QRS=78, ZDv=048 Code Status & VTE Plan VTE Prophylaxis Plan VTE Prophylaxis will be ordered: Yes PG Care Time/CCT Total # of Minutes Spent Total Time Spent with Patient: Total time spent is greater than 50% in coordination of care (as documented) at patient's floor/unit and/or counseling patient: Coding Level of Care Code 67565 Initial Inpt Care Lvl 3 Diagnoses Atrial fibrillation with rapid ventricular response I48.91 Hypertension I10 Hypertension type: unspecified Abdominal aortic aneurysm I71.4 Dyslipidemia E78.5 (1) Hypertension Hypertension type: unspecified Qualified Code(s): I10 - Essential (primary) hypertension
[2021-10-19] MEDS ORDERED: ACETAMINOPHEN 325 MG TAB PO PRN (00:46)
[2021-10-19] MEDS ORDERED: HEPARIN SOD (PORCINE) 1000 UNIT/ML IV ONE (01:10)
[2021-10-19 08:05] LABS: BUN Creatinine Ratio 18.5 (10-20); Calcium 8.9 mg/dl (8.5-10.1); Creatinine Clr Calc Pharmacy 51.2 ml/min; Est GFR (African American) 77.3 ml/min; Est GFR (Non-African American) 66.7 ml/min; Potassium 3.9 mmol/L (3.5-5.1)
--- NOTE | 2021-10-19 08:15 | XRay Report ---
XR chest 1V portable CLINICAL HISTORY: Atypical chest pain. COMPARISON STUDY: Chest CT May 30, 2019. Chest radiograph December 03, 2019. FINDINGS: Lung volumes are normal. Lungs are clear. There is no pneumothorax or pleural effusion. Car diac size is normal. Mediastinal contours are normal. There is no evidence for pulmonary edema. Incid ental note is made of multiple old right rib fractures. Mild left basilar opacity favors prominent ep icardial fat pad. A small left pleural effusion could appear similar. IMPRESSION: No acute cardiopulmonary findings. ACT 112: Negative or not required by law. Electronically signed by: Jose Roberto Royal M.D. 10/19/2021 8:14 AM
[2021-10-19 08:17] LABS: Partial Thromboplastin Ratio 2.4
[2021-10-19 08:18] LABS: Partial Thromboplastin Time 63.5 Seconds (21.0-31.0)
[2021-10-19] MEDS ORDERED: dilTIAZem HCL 120 MG CAPCR PO SCH ×2 (09:00→21:00)
[2021-10-19] MEDS ORDERED: CHOLECALCIFEROL 1,000 UNITS 25 MCG TAB PO SCH (09:00)
--- NOTE | 2021-10-19 10:25 | Cardiology Consultation ---
Date of Consultation October 19, 2021 Assessment & Plan (1) Atrial fibrillation with rapid ventricular response: 2. Hypertension 3. Dyslipidemia 4. Saccular abdominal aortic aneurysm1.4 cm Patient admitted with new onset, symptomatic atrial fibrillation with RVR. Converted overnight on diltiazem infusion. Has remained in sinus rhythm and is feeling back at baseline. No clear precipitants. No signs of ischemia. No signs of heart failure on exam. Echocardiogram with normal biventricular function and no significant valvular heart disease. For atrial fibrillation recommend initial strategy of increased rate control agents and anticoagulation in the setting of elevated cardioembolic risk ([id number]). From a cardiac standpoint okay with discharge today. Increase Toprol-XL to 25 mg twice daily. Continue current home Cardizem 120 mg in the a.m., 240 mg in the evening. Start Eliquis 5 mg twice daily Follow-up with me in 1 to 2 weeks. History of Present Illness Attending Physician: Nehemias Gipson History of Present Illness Mrs. Castro is a very pleasant 85-year-old woman seen today in the setting of new onset atrial fibrillation with RVR. Prior breast medical history includes hypertension, dyslipidemia, GERD and small saccular abdominal aortic aneurysm (1.4 cm). Reports longstanding brief palpitations but no diagnosis of prior arrhythmia. Yesterday was feeling well, walking back from her daughter's house when developed burning in her chest with associated palpitations and heart racing. Initially thought symptoms were GERD but persisted and due to heart racing EMS was contacted. With EMS initially thought to have SVT and given adenosine x2 en route. On arrival hypertensive to the 190s, ECG with A. fib with RVR with heart rates to the 140s. Given IV diltiazem and started on diltiazem infusion overnight. Converted to sinus rhythm around 12:30 AM. Troponin negative. Chest x-ray unremarkable. Echocardiogram this morning shows normal LV function, mild LVH, mild MR, normal estimated PA/RA pressure. This morning states just feeling tired but no residual chest pain, shortness of breath or palpitations. Allergies Allergy/AdvReac Type Severity Reaction Status Date / Time ibuprofen Allergy Intermediate ITCHY Verified 10/18/21 22:42 cephalexin [From Keflex] Allergy Unknown Unknown Verified 10/18/21 22:42 Cephalosporins Allergy Unknown SWELLING Verified 10/18/21 22:42 morphine Allergy Unknown Unknown Verified 10/18/21 22:42 Penicillins Allergy Unknown SWELLING Verified 10/18/21 22:42 zolpidem [From Ambien] Allergy Unknown Unknown Verified 10/18/21 22:42 baclofen Allergy Unknown Verified 10/18/21 22:42 ketorolac Allergy Unknown Verified 10/18/21 22:42 sulfamethoxazole Allergy rash Verified 10/18/21 22:42 [From Bactrim] trimethoprim [From Bactrim] Allergy rash Verified 10/18/21 22:42 aspirin AdvReac Severe HEART Verified 10/18/21 22:42 RACES, INCREASES B/P meperidine AdvReac Severe HEART Verified 10/18/21 22:42 RACES, INCREASES B/P oxycodone AdvReac Severe HEART Verified 10/18/21 22:42 RACES, INCREASES B/P tramadol AdvReac Severe HEART Verified 10/18/21 22:42 RACES, INCREASES B/P codeine AdvReac Intermediate ITCHY Verified 10/18/21 22:42 hydrocodone AdvReac Intermediate ITCHY Verified 10/18/21 22:42 atorvastatin [From Lipitor] AdvReac Unknown Verified 10/18/21 22:42 pravastatin [From Pravachol] AdvReac Unknown Verified 10/18/21 22:42 Home Medications Medication Instructions Recorded Confirmed Type latanoprost 0.005 % eye drops 1 drp OPB HS 05/24/18 10/18/21 History (Xalatan) melatonin 3 mg tablet 3 mg PO HS 05/24/18 10/18/21 History vit C 250 mg-vit E 90 mg-zinc 40 1 tab PO BID 03/18/19 10/18/21 History mg-copper 1 [id number] capsule (PreserVision AREDS-2) acetaminophen 500 mg tablet 500 mg PO Q6H PRN 04/10/19 10/18/21 History (Tylenol Extra Strength) cholecalciferol (vitamin D3) 25 2,000 units PO QAM cap 12/26/19 10/18/21 History mcg (1,000 unit) capsule (Vitamin D3) metoprolol succinate 25 mg 25 mg PO HS #90 tab 12/06/20 10/18/21 Rx tablet,extended release 24 hr (Toprol XL) diltiazem HCl 120 mg See Rx Instructions PO DAILY 90 08/09/21 10/18/21 Rx capsule,extended release 24 hr Days #270 cap aspirin 81 mg tablet,delayed 324 mg PO .TODAY 10/18/21 10/18/21 History release betamethasone dipropionate 0.05 % 1 applic TOPICAL BID PRN 10/18/21 10/18/21 History lotion ketoconazole 2 % shampoo 1 applic TOPICAL 2XWK 10/18/21 10/18/21 History Patient History Medical History (Updated 10/18/21 @ 23:59 by Daria Lopez DO) Abdominal aortic aneurysm Bilateral sensorineural hearing loss Dyslipidemia Gastroesophageal reflux disease Glaucoma History of polymyalgia rheumatica Hypertension Insomnia Low back pain Multiple rib fractures involving four or more ribs Osteopenia Pleural effusion Right hip tendonitis Trochanteric bursitis, right hip Vitamin D deficiency Surgical History H/O lateral meniscus repair of right knee S/P abdominal hysterectomy S/P appendectomy S/P colonoscopy S/P tonsillectomy and adenoidectomy Family History Mother Hypertension Stroke Other specified hearing loss, bilateral Father Other specified hearing loss, bilateral Cancer Cardiac disorder Myocardial infarction Daughter Breast cancer Sister Myocardial infarction Denies family history of Ovarian cancer Prostate cancer Colorectal cancer Social History Smoking Status: Never smoker Second Hand Exposure: No; Do You Dip or Chew Tobacco: No; Hx Alcohol Use: No Hx Substance Use: No Preferred Language: Venezuelan Communication Ability: Effective Visual Impairment: Limited Hearing Ability: Use of Hearing Aid Resource Recovery Specialist Required: No Beliefs That Will Affect Care: None marital status: Current Living Situation: Spouse current occupational status: retired How many Children do You have: 1 Feels Safe at Home: Yes Safety Concerns: Feels Safe At This Time Childhood Exposure to Second-Hand Smoke: Yes caffeine: Yes Dental Care, Regularly: No Physical Activity Frequency: Does not Exercise Seatbelt Use: always Sunscreen Use: Yes Do you think of yourself as: straight/heterosexual Assistive Devices: None Review of Systems Review of Systems: All systems reviewed & are unremarkable except as noted in HPI & below Physical Exam Physical Exam: General: Comfortable HEENT: Sclerae anicteric Lungs: Clear to auscultation bilaterally Cardiac: Regular rate and rhythm, 2/6 holosystolic murmur at the apex Vascular: 2+ radial Abdomen: Soft, nontender Extremities: Well perfused, no peripheral edema Neuro: Nonfocal Psych: Alert orient x3, normal affect and mood Results & Data ([facility]) Vital Signs (Past 12 Hours) Vital Signs Temp Pulse Pulse Resp BP BP Pulse Ox 10/19/21 08:00 98.2 F 67 18 152/83 H 94 10/19/21 03:31 66 18 149/74 H 95 10/19/21 01:45 74 20 148/66 H 94 10/19/21 00:30 89 21 163/80 H 96 10/19/21 00:18 73 18 156/80 H 94 10/19/21 00:00 89 18 139/76 95 10/18/21 23:30 121 H 22 152/106 H 95 10/18/21 23:00 122 H 29 H 172/93 H 95 10/18/21 22:53 138 H 23 161/109 H 95 10/18/21 22:30 97 H 17 164/132 H 95 PG Care Time/CCT Total # of Minutes Spent Total Time Spent with Patient: Total time spent is greater than 50% in coordination of care (as documented) at patient's floor/unit and/or counseling patient: Coding Level of Care Code 35318 Initial Inpt Care Lvl 3 Diagnoses Atrial fibrillation with rapid ventricular response I48.91
--- NOTE | 2021-10-19 10:50 | Discharge Summary ---
Date of Service October 19, 2021 Admission HPI Per Admitting Provider Osiris Castro is a pleasant 85yo female with history of AAA on surveillance, HTN, HLP and GERD presenting with acute onset of palpitations and racing heart. Patient was in her usual state of health today. She was getting some mild from the refrigerator around 19:30 when she had acute onset of racing heart, palpitations and some SOB. She denies chest pain, cough, dizziness or syncope. Denies worsening edema, orthopnea or weight gain. No additional complaints at this time. Patient took ASA 324mg prior to arrival. Upon arrival she was found to be in atrial fibrillation. Initially she was rate controlled, however, after ambulation to the bathroom her HR increased. She was administered Diltiazem bolus and started on a diltiazem infusion for rate control. Patient presently reports feeling improved. She denies chest pain, palpitations, dizziness or SOB at this time. She has no prior diagnosis of arrhythmia or atrial fibrillation. She does report having this sensation of rapid heart rate and palpitations in the past, however. She reports feeling this way at least yearly for the last 5-6 years. She states when she has palpitations they may last only briefly or may be constant for several days. She has had testing in the past to include stress testing, EKG, echo and Holter monitoring with no definitive diagnosis. She is active and independent. She resides in a house with her . Walks frequently without use of a cane or walker. No recent falls. ER Course: Diltiazem 10mg IV, Diltiazem infusion - presently at 10mg/hr, Heparin gtt ordered - not yet started Principal Diagnosis A. fib with RVR Discharge Exam General: patient resting comfortably, NAD, non-toxic in appearance, AA&O x 4 Skin: warm, dry, intact, no rashes or lesions HEENT: NC/AT, PERRL, EOMI, anicteric sclera, conjunctiva without injection, external ear normal to inspection and nontender, nares patent, moist mucus membranes, dentition intact, no oropharyngeal lesions, neck supple, trachea midline, no LAD, no thyromegaly, no JVD Heart: +S1/S2, irregularly irregular, no m/r/g Lungs: equal air entry bilaterally, no rales/rhonchi/wheezes Abd: +BS, soft, NT/ND, no masses/organomegaly/ascites Ext: warm, 2+ pulses in UE/LE bilaterally, no clubbing/cyanosis, 1+ pitting edema of bilateral LE Neuro: nonfocal, patient AA&O x 4, speech intact, no facial droop, moving all extremities on command with equal strength 5/5 Discharge Data Allergies Allergy/AdvReac Type Severity Reaction Status Date / Time ibuprofen Allergy Intermediate ITCHY Verified 10/20/21 10:41 cephalexin [From Keflex] Allergy Unknown Unknown Verified 10/20/21 10:41 Cephalosporins Allergy Unknown SWELLING Verified 10/20/21 10:41 morphine Allergy Unknown Unknown Verified 10/20/21 10:41 Penicillins Allergy Unknown SWELLING Verified 10/20/21 10:41 zolpidem [From Ambien] Allergy Unknown Unknown Verified 10/20/21 10:41 baclofen Allergy Unknown Verified 10/20/21 10:41 ketorolac Allergy Unknown Verified 10/20/21 10:41 sulfamethoxazole Allergy rash Verified 10/20/21 10:41 [From Bactrim] trimethoprim [From Bactrim] Allergy rash Verified 10/20/21 10:41 aspirin AdvReac Severe HEART Verified 10/20/21 10:41 RACES, INCREASES B/P meperidine AdvReac Severe HEART Verified 10/20/21 10:41 RACES, INCREASES B/P oxycodone AdvReac Severe HEART Verified 10/20/21 10:41 RACES, INCREASES B/P tramadol AdvReac Severe HEART Verified 10/20/21 10:41 RACES, INCREASES B/P codeine AdvReac Intermediate ITCHY Verified 10/20/21 10:41 hydrocodone AdvReac Intermediate ITCHY Verified 10/20/21 10:41 atorvastatin [From Lipitor] AdvReac Unknown Verified 10/20/21 10:41 pravastatin [From Pravachol] AdvReac Unknown Verified 10/20/21 10:41 Consultations 10/18/21 23:16 ED Decision to Admit Stat Hospital Course (1) Atrial fibrillation with rapid ventricular response: Patient with new atrial fibrillation. HD stable. HR has improved with Cardizem bolus and gtt initiated in ER. She denies chest pain, SOB, dizziness. No focal neurological findings. No evidence of heart failure. TSH elevated with normal T4. Electrolytes WNL. Troponin is negative. No acute ischemic findings on EKG - some nonspecific ST changes, possibly rate related. -Admit to PCU -Continue Diltiazem gtt per protocol. Goal HR <110bpm -Continue Heparin gtt for anticoagulation. Patient with [id number] score of 4 (age, gender, h/o HTN). Would benefit from anticoagulation for primary stroke prevention At discharge, will be on metoprolol 25 mg PO BID and continue diltiazem at discharge. Will be on Eliquis for stroke prevention. This was discussed with theresa. (2) Hypertension: Blood pressure elevated. Presently 172/93. No CP/SINGH/SOB. -Continue Diltiazem and Metoprolol. Uncertain why patient is on Cardizem extended release BID - seems to have changed in Jul 2021. Would try daily dosing of Diltiazem if tolerated -Continue to monitor (3) Abdominal aortic aneurysm: Patient with abdominal aortic aneurysm being followed with serial CT. Last performed on 06/08/20 revealing 1.4cm saccular aneurysm of the distal abdominal aorta which was essentially unchanged from prior study 05/30/19. Patient is to have routine scan in 1 year. -Continue routine outpatient monitoring (4) Dyslipidemia: Patient with elevated lipids. Last on 04/28/21 with TG of 300, Chol of 226. Allergic to statin medications. Per PCP note 04/29/21, patient is not interested in starting Zetia -Continue dietary modification F/E/N - [place]. Electrolytes WNL. Heart healthy diet as tolerated Ppx - Heparin gtt for AF as above Code - Full per discussion with patient, daughter at bedside as well Dispo - Admit to PCU Total Time Total Time Spent Total Time Spent (In Minutes): 32 Discharge Plan Discharge Items Patient Disposition: Home - Self-Care Reason For Visit: NEW ONSET ATRIAL FIBRILLATION Discharge Diagnosis: New onset atrial fibrillation Activity: Resume your previous activity Non-emergency contact: Primary Care Provider Call non-emergency contact if: you have any medication questions Follow-up/Referrals: Pedro Ramesh, [Primary Care Provider] - Diet: Heart Healthy Addtl Attending Provider Instructions: restart diltiazem and metoprolol this evening. You will now be taking toprol twice a day. You will also be taking eliquis in the evening too. Pending Studies at Discharge: No Stand-Alone Forms: My [facility], Smoking Cessation Medications and DC Order Prescriptions: New Eliquis 5 mg tablet 5 mg PO BID Qty: 60 RF: 0 Continued diltiazem HCl 120 mg capsule,extended release 24hr See Rx Instructions PO DAILY 90 Days Qty: 270 RF: 3 betamethasone acet,sod phos 6 mg/mL suspension 12 mg intra-articular ONCE Qty: 2 RF: 0 PreserVision AREDS-2 [id number] wm-qjrm-il-mg capsule 1 tab PO BID RF: 0 latanoprost [Xalatan] 0.005 % drops 1 drp OPB HS RF: 0 melatonin 3 mg Tablet 3 mg PO HS RF: 0 cholecalciferol (vitamin D3) [Vitamin D3] 25 mcg (1,000 unit) capsule 2,000 units PO QAM RF: 0 acetaminophen [Tylenol Extra Strength] 500 mg Tablet 500 mg PO Q6H PRN (Reason: Pain) RF: 0 ketoconazole 2 % shampoo 1 applic TOPICAL 2XWK RF: 0 betamethasone dipropionate 0.05 % lotion 1 applic TOPICAL BID PRN (Reason: .AFFECTED AREA) RF: 0 Changed aspirin 81 mg Tablet,Delayed Release (Dr/Ec) 81 mg PO DAILY Qty: 0 RF: 0 Discontinued metoprolol succinate [Toprol XL] 25 mg tablet extended release 24 hr 25 mg PO HS Qty: 90 RF: 3 No Action metoprolol succinate [Toprol XL] 25 mg tablet extended release 24 hr 25 mg PO BID Qty: 180 RF: 3 Discharge Orders: Discharge Order (Routine); Ordered 10/19/21 Ordered By: Nehemias Gipson Admission Data Admit Date/Time: 10/18/21 23:49 Attending Provider: Nehemias Gipson Admit Provider: Daria Lopez Primary Care Provider: Pedro Ramesh Other Providers: Daria Lopez Other Interventions: Discharge Summary Assessment (RN) Last Done: 10/19/21 12:51 Coding Level of Care Code D/C DAY MANAGEMENT >30 MINS Diagnoses Atrial fibrillation with rapid ventricular response I48.91 Hypertension I10 Hypertension type: unspecified Abdominal aortic aneurysm I71.4 Dyslipidemia E78.5
[2021-10-19] MEDS ORDERED: APIXABAN 5 MG TABLET PO SCH (11:00)
--- NOTE | 2021-10-19 11:48 | XCELERA ---
[id number]
--- NOTE | 2021-10-19 11:51 | Electrocardiogram Report ---
Test Reason : Blood Pressure : / mmHG Vent. Rate : 127 BPM Atrial Rate : 312 BPM P-R Int : 000 ms QRS Dur : 078 ms QT Int : 314 ms P-R-T Axes : 000 -07 032 degrees QTc Int : 456 ms Atrial fibrillation with rapid ventricular response Nonspecific ST abnormality Abnormal ECG When compared with ECG of 28-MAR-2021 11:24, Atrial fibrillation has replaced Sinus rhythm Vent. rate has increased BY 63 BPM Confirmed by Varun Lay ([id number]) on 10/19/2021 11:51:24 AM Referred By: REFERRED SELF Confirmed By:Victoriano Lay
[2021-10-19] MEDS ORDERED: LATANOPROST 0.005% OP SOLN 2.5 ML BTL OPB SCH (21:00)
[2021-10-19] MEDS ORDERED: MELATONIN 3 MG TAB PO SCH (21:00)
[2021-10-19] MEDS ORDERED: METOPROLOL SUCC 25MG EXT REL TAB PO SCH (21:00)
== END 2021-10-19 13:36 | disposition home or self-care (01) | DRG 310 ==
LOC: ED 21:26 → EDINP 23:49 → SUATTDRO 23:49 → EDINP 10-19 01:00